=== PATIENT | male | born 1950 | race Hispanic/Latino ===

== ENCOUNTER 2017-10-31 17:27 | Inpatient (IN) | payer MEDICARE ==
[~2017-10-31] VITALS: Ht 157.5 cm; Wt 51.7 kg
[~2017-10-31 17:27] MED LIST: ARICEPT5 MG PO; ASPIRIN81 MG PO; AUGMENTIN 875-1 EACH PO; CARVEDILOL6.25 MG PO; CLOPIDOGREL75 MG PO; COREG12.5 MG PO; CRESTOR10 MG PO; DICYCLOMINE HCL10 MG PO; DICYCLOMINE HCL20 MG PO; FUROSEMIDE20 MG PO; HYDROCODON-ACE1 EA11 PO; LANTUS100 UNITS/ SQ; LEVAQUIN500 MG PO; LEVOTHYROXINE75 MCG PO; METOPROLOL TART25 MG PO; MIRALAX17 GM PO; MIRTAZAPINE15 MG PO; Megestrol Acetate PO; NEXIUM40 MG PO; NIFEDIPINE ER30 MG PO; NITROSTAT0.4 MG SL; Nifedipine PO; Nitroglycerin TOP; ONDANSETRO4 MG/UDTAB PO; ONDANSETRON HCL4 MG PO; PROTONIX40 MG/ML PO; RAMIPRIL5 MG PO; REGLAN10 MG PO; REGLAN5 MG PO; RENVELA2.4 GM PO; RENVELA800 MG PO; ROCALTROL0.25 MCG PO; SENSIPAR30 MG PO; SYNTHROID75 MCG PO; TIROSINT50 MCG PO; TRAZODONE HCL50 MG PO; VASOTEC10 MG PO; ZOFRAN ODT4 MG PO; renvela PO
[2017-10-31 18:31] LABS: BASOPHILS # (AUTO) 0.1 (0.0-0.1); BASOPHILS % 1.9 % (0.0-1.0); EOSINOPHILS # (AUTO) 0.2 (0.0-0.4); HEMATOCRIT 30.1 % (38.2-49.6); LYMPHOCYTES # (AUTO) 0.8 (1.0-3.2); LYMPHOCYTES % 25.4 % (18.0-39.1); MEAN CORPUSCULAR HEMOGLOBIN 31.6 pg (28-32); MEAN CORPUSCULAR HGB CONC 33.2 g/dL (31-35); MEAN CORPUSCULAR VOLUME 95.3 fL (81-99); MONOCYTES # (AUTO) 0.3 (0.2-0.8); MONOCYTES % 10.7 % (4.4-11.3); NEUTROPHILS # (AUTO) 1.8 (2.1-6.9); PLATELET COUNT 145 x10e3/uL (140-360); RED BLOOD COUNT 3.16 x10e6/uL (4.3-5.7); RED CELL DISTRIBUTION WIDTH 16.3 % (11.7-14.4)
[2017-10-31] MEDS ORDERED: NIFEDIPINE CR 30 MG TAB PO STA (18:31)
[2017-10-31] MEDS ORDERED: ONDANSETRON HCL INJ 2 MG/ML VIAL IV STA (18:34)
[2017-10-31 18:42] LABS: PROTHROMBIN TIME 13.7 seconds (11.9-14.5)
[2017-10-31 18:43] LABS: PARTIAL THROMBOPLASTIN TIME 33.5 seconds (23.8-35.5)
[2017-10-31] MEDS ORDERED: TRAZODONE HCL100 MG PO (18:44)
[2017-10-31] MEDS ORDERED: SENSIPAR30 MG PO (18:44)
[2017-10-31 18:53] LABS: ALBUMIN 3.9 g/dL (3.5-5.0); ALKALINE PHOSPHATASE 93 IU/L (40-150); BLOOD UREA NITROGEN 21 mg/dL (7-26); BUN/CREATININE RATIO 3 (6-25); CALCIUM 9.2 mg/dL (8.4-10.2); CARBON DIOXIDE 25 mmol/L (22-29); CHLORIDE 96 mmol/L (98-107); CREATINE KINASE 124 IU/L (30-200); CREATININE, SERUM 6.57 mg/dL (0.72-1.25); EST GLOMERULAR FILTRATION RATE 8 ML/MIN (60-); GLUCOSE 121 mg/dL (74-118); LIPASE 10 U/L (8-78); SODIUM 137 mmol/L (136-145)
[2017-10-31 18:55] LABS: ALANINE AMINOTRANSFERASE < 6 IU/L (0-55)
[2017-10-31] MEDS ORDERED: RAMIPRIL 5 MG CAP PO ONE (19:00)
--- NOTE | 2017-10-31 19:01 | Diagnostic Imaging Report ---
PROCEDURE: Frontal and lateral views of the chest. COMPARISON: Patients [facility], DX, CHEST SINGLE (PORTABLE), 07/07/2017, 9:26. Patients [facility], CT, CT ABDOMEN/PELVIS WO, 07/07/2017, 12:33. INDICATIONS: SHORTNESS OF BREATH FINDINGS: Lines/tubes: None. Lungs: Lungs are mildly hypoinflated. Linear opacity in the left midlung, likely represent subsegmental atelectasis. Bilateral interstitial opacities extending from the misty, with patchy airspace opacity in the right lower lung and left retrocardiac airspace opacity. Pleura: Blunting of the left costophrenic angle and obscuration of the left hemidiaphragm, consistent with a pleural effusion. Heart and mediastinum: Enlarged cardiac silhouette. Central pulmonary venous congestion. Bones: No acute bony abnormality. IMPRESSION: 1. findings highly suggestive of interstitial and alveolar pulmonary edema. This is likely cardiogenic in nature given the enlarged cardiac silhouette. Venkatesh Quintana M.D. Dictated by: Venkatesh Quintana M.D. on 10/31/2017 at 19:09 Electronically approved by: Venkatesh Quintana M.D. on 10/31/2017 at 19:09
--- NOTE | 2017-10-31 19:44 | Diagnostic Imaging Report ---
CT Abdomen Unenhanced CPT CODE: 17889 INDICATION: Upper abdominal pain TECHNIQUE: 5 mm collimation axial images obtained from lung base to iliac crest without intravenous contrast. RADIATION DOSE: Total DLP: 131.8 mGy*cm Estimated effective dose: (DLP x 0.015 x size factor) mSv CTDIvol has been reviewed. It is below the limits set by the Radiation Protocol Committee (RPC). Comparison: CT abdomen/pelvis 07/07/2017. FINDINGS: Lung bases: Posterior pleural effusions measure 3.9 cm on the right and 2.6 cm on the left. There is atelectasis of the overlying lung. The heart is enlarged with diffuse coronary artery calcifications. No pericardial effusion. The esophagus is collapsed. Liver: Normal attenuation. Subtle low attenuating lesion in the right lobe measures about 5 mm and is stable (image 35). There is a stable punctate calcification in segment 7. Gallbladder: Absent. No biliary ductal dilatation. Pancreas: Normal in attenuation without mass or ductal dilatation. Spleen: Normal in attenuation and size without mass. Adrenal Glands: No evidence for mass.. Kidneys: Diffusely atrophic with calcifications of the hilar vessels. No mass. No renal calculus. Bowel: The stomach is collapsed. Visualized portions of the small bowel and large bowel are normal in diameter with normal wall thickness Aorta: Normal in diameter. There are calcifications about the arterial structures. Lymph Nodes: No enlarged lymph nodes.. Bones: Diffusely increased in attenuation consistent with renal osteodystrophy. A sclerotic, nondestructive lesion in L1 is stable IMPRESSION: 1. Moderate sized bilateral pleural effusions with overlying atelectasis. Small foci of pneumonia cannot be excluded.. 2. Cholecystectomy. Normal biliary tree. 3. Cardiomegaly and bilateral renal atrophy. 4. Visualized portions of the bowel are unremarkable. 5. Renal osteodystrophy. 6. Stable low attenuating hepatic lesion, too small to characterize, but likely a cyst. Signed by: Dr. Los Sutherland MD on 10/31/2017 7:41 PM
[2017-10-31] MEDS ORDERED: NITROGLYCERIN 2% OINT 1 GM PKT TOP ONE ×2 (20:00→20:30)
[2017-10-31] MEDS ORDERED: ASPIRIN 81 MG CHEW TAB PO ONE (20:30)
[2017-10-31] MEDS ORDERED: FUROSEMIDE INJ 10 MG/ML 4 ML VIAL IV ONE (20:30)
[2017-10-31] MEDS ORDERED: ONDANSETRON HCL INJ 2 MG/ML VIAL IV PRN (20:30)
[2017-10-31] MEDS ORDERED: ENALAPRILAT IV INJ 1.25 MG/ML VIAL IV ONE (21:15)
[2017-10-31] MEDS ORDERED: PANTOPRAZOLE 40 MG 10ML VIAL IV ONE (21:30)
[2017-10-31] MEDS ORDERED: SODIUM CHLORIDE 0.9% 1000ML 1,000 ML ONE (22:21)
[2017-10-31 22:30] VITALS: BP 185/81
[2017-10-31 22:54] VITALS: BP 185/81
[2017-10-31 22:57] VITALS: BP 185/81
[2017-10-31] MEDS: NITROGLYCERIN 2% OINT 1 GM PKT TOP SCH (23:15)
[2017-10-31] MEDS ORDERED: TUMS200 MG PO (23:19)
[2017-11-01] VITALS (13 sets, daily range): BP systolic 105–186; BP diastolic 59–82
[2017-11-01] MEDS: NITROGLYCERIN 2% OINT 1 GM PKT TOP SCH ×4 (06:05→23:26)
[2017-11-01 06:44] LABS: BASOPHILS # (AUTO) 0.1 (0.0-0.1); BASOPHILS % 1.8 % (0.0-1.0); EOSINOPHILS # (AUTO) 0.1 (0.0-0.4); EOSINOPHILS % 4.8 % (0.0-6.0); HEMATOCRIT 26.2 % (38.2-49.6); HEMOGLOBIN 8.6 g/dL (14.0-18.0); LYMPHOCYTES # (AUTO) 0.6 (1.0-3.2); LYMPHOCYTES % 23.1 % (18.0-39.1); MEAN CORPUSCULAR HEMOGLOBIN 31.6 pg (28-32); MEAN CORPUSCULAR HGB CONC 32.8 g/dL (31-35); MEAN CORPUSCULAR VOLUME 96.3 fL (81-99); MONOCYTES # (AUTO) 0.3 (0.2-0.8); NEUTROPHILS # (AUTO) 1.6 (2.1-6.9); NEUTROPHILS % 58.9 % (38.7-80.0); PLATELET COUNT 121 x10e3/uL (140-360); RED BLOOD COUNT 2.72 x10e6/uL (4.3-5.7); RED CELL DISTRIBUTION WIDTH 16.1 % (11.7-14.4)
[2017-11-01 06:53] LABS: INR 1.06; PROTHROMBIN TIME 14.4 seconds (11.9-14.5)
[2017-11-01 06:54] LABS: PARTIAL THROMBOPLASTIN TIME 36.2 seconds (23.8-35.5)
[2017-11-01 07:05] LABS: ALBUMIN 3.3 g/dL (3.5-5.0); ALBUMIN/GLOBULIN RATIO 1.2 (0.8-2.0); ALKALINE PHOSPHATASE 73 IU/L (40-150); ANION GAP 14.9 mmol/L (8-16); BLOOD UREA NITROGEN 13 mg/dL (7-26); BUN/CREATININE RATIO 3 (6-25); CALCIUM 8.9 mg/dL (8.4-10.2); CARBON DIOXIDE 29 mmol/L (22-29); CHLORIDE 102 mmol/L (98-107); CHOL/HDL RATIO 4.3 (3.9-4.7); CHOLESTEROL 156 MD/DL (0-199); CREATININE, SERUM 4.63 mg/dL (0.72-1.25); EST GLOMERULAR FILTRATION RATE 13 ML/MIN (60-); GLUCOSE 69 mg/dL (74-118); HDL CHOLESTEROL 36 MG/DL (40-60); LDL CHOLESTEROL 98 MG/DL (60-130); MAGNESIUM 1.9 MG/DL (1.3-2.1); PHOSPHORUS 3.6 MG/DL (2.3-4.7); POTASSIUM 3.9 mmol/L (3.5-5.1); SODIUM 142 mmol/L (136-145); TRIGLYCERIDES 112 MG/DL (0-149)
[2017-11-01 07:08] LABS: ALANINE AMINOTRANSFERASE < 6 IU/L (0-55)
--- NOTE | 2017-11-01 08:54 | History and Physical ---
PRIMARY CARE PHYSICIAN: Dr. Destin Mohr CHIEF COMPLAINT: Elevated blood pressure. HISTORY OF PRESENT ILLNESS: This is a 67-year-old man with a history of diabetes mellitus and end-stage renal disease, on hemodialysis, who has been having dysphagia. Went to Dr. Hoang yesterday for evaluation of his dysphagia. There he was found to have a systolic blood pressure as high as 213. He was sent to the hospital here. The patient denies any chest pain. He did have some mild shortness of breath and cough. He received hemodialysis overnight for fluid overload. PAST MEDICAL HISTORY: Hypertension, coronary artery disease, status post coronary stent in 2008, diastolic congestive heart failure, diabetes mellitus, type 2, end-stage renal disease, on hemodialysis, hyperlipidemia, hypothyroidism, dementia, insomnia. PAST SURGICAL HISTORY: Fistula placement in left arm, stent placement to the coronary artery, kidney transplantation, status post removal. ALLERGIES: PER ELECTRONIC MEDICAL RECORD. FAMILY HISTORY/SOCIAL HISTORY: The patient is . He has 4 children. No alcohol, illicits or cigarettes. MEDICATIONS: Per electronic medical record. REVIEW OF SYSTEMS: Denies any dizziness or chest pain. PHYSICAL EXAMINATION VITAL SIGNS: Have been reviewed. GENERAL: A tired-appearing man resting in bed. HEENT: Anicteric. Pupils respond to light. No oral lesions. CARDIOVASCULAR: Normal S1 and S2. LUNGS: He has reduced breath sounds at the bases. Fine crackles are audible. ABDOMEN: Soft and nondistended. He has epigastric discomfort, which is mild. EXTREMITIES: No edema or calf tenderness. NEUROLOGICAL: He is alert and oriented times 3. Moves all extremities. SKIN: Dry. PSYCHIATRIC: Flat affect. MUSCULOSKELETAL: He has a left arm fistula with audible bruit. LABS: Reviewed. MEDICATIONS: Reviewed. ASSESSMENT AND PLAN: This is a 67-year-old man with: 1. Hypertensive emergency: Part of this is secondary to fluid overload. Will continue JANAK inhibitor. Will add labetalol 100 mg q.12 h. 2. Acute exacerbation of diastolic congestive heart failure: The patient received dialysis yesterday. He is also on Lasix intravenously. BNP was 2330. 3. End-stage renal disease: Hemodialysis per nephrology. Received dialysis session last night. 4. Pulmonary edema: Continue diuresis and fluid removal. I have discussed salt restriction and fluid reduction with the patient and . 5. Normocytic anemia: Mild to moderate. Likely secondary to chronic kidney disease. 6. Bilateral pleural effusion: Continue diuresis as described above. 7. Hypothyroidism: Restart Synthroid. 8. Dementia: Restart Aricept. 9. Coronary artery disease with history of stent: Continue Plavix. 10. Prophylaxis: Continue proton pump inhibitor and use sequential compression devices. 11. Disposition: Control blood pressure. Continue diuresis. Monitor fluid status. Job#: [id number] RI
[2017-11-01] MEDS ORDERED: ASPIRIN 81 MG ENTERIC COATED PO SCH (09:00)
[2017-11-01] MEDS ORDERED: PANTOPRAZOLE 40 MG 10ML VIAL IV SCH (09:00)
[2017-11-01] MEDS ORDERED: CLOPIDOGREL BISULFATE 75 MG TAB PO SCH (09:00)
[2017-11-01] MEDS ORDERED: LABETALOL HCL 100 MG TAB PO SCH (09:00)
[2017-11-01] MEDS: ASPIRIN 81 MG CHEW TAB PO SCH (09:35)
[2017-11-01] MEDS: FUROSEMIDE INJ 10 MG/ML 4 ML VIAL IV SCH ×2 (09:35→23:25)
[2017-11-01] MEDS: LISINOPRIL 20 MG TAB PO SCH (09:36)
[2017-11-01] MEDS: DONEPEZIL HCL 5 MG TAB PO SCH (09:48)
[2017-11-01] MEDS: CALCIUM CARBONATE 500 MG CHEWABLE TABS PO SCH ×2 (09:48→17:18)
[2017-11-01] MEDS: LEVOTHYROXINE SODIUM 75 MCG TAB PO SCH (09:48)
[2017-11-01 10:46] LABS: CREATINE KINASE MB 2.2 ng/mL (0.00-5.00)
--- NOTE | 2017-11-01 14:12 | Diagnostic Imaging Report ---
EXAMINATION: Chest, CHEST SINGLE (PORTABLE) INDICATION: Chest pain COMPARISON: Portable chest 11/15/2015 FINDINGS: LINES: None. Heart: Normal cardiac silhouette. Vascular: The pulmonary vasculature is within normal limits. Atherosclerotic calcifications of the aortic arch. Mediastinum: No mediastinal, hilar, or axillary mass or lymphadenopathy. Lungs: No parenchymal mass. Bilateral diffuse airspace opacifications. Pleura: No pleural effusion. No pneumothorax. Bones: No acute osseous abnormality. Degenerative changes of the thoracic spine. Soft tissues: Normal. Impression: Bilateral diffuse airspace opacifications may represent edema or pneumonia. Signed by: Dr. Matthew Rush M.D. on 11/01/2017 2:09 PM
[2017-11-01] MEDS: PROMETHAZINE 12.5MG/ NACL 0.9% 12.5 MG/50 ML BAG IV PRN (14:13)
--- NOTE | 2017-11-01 15:01 | Consultation ---
DATE OF CONSULTATION: November 01, 2017 CARDIAC CONSULTATION REASON FOR CONSULTATION: Volume overload, congestive heart failure, severe hypertension, chest pain. HISTORY: Mr. Valenzuela is a 67-year-old gentleman who is known with advanced coronary artery disease, severely calcified coronary artery. Status post PCI. He is known to have hypertension and hypercholesteremia. He is also known to have peripheral arterial vascular disease and end-stage renal disease on hemodialysis. He does have past history of OK as well as past history of CVA. Patient is on dialysis Friday//Friday. He missed one dialysis session because of the cold weather. He went to see his GI doctor. He was complaining of severe chest pain but, more importantly, severe heartburn. He was not feeling well. His blood pressure was markedly elevated at greater than 200. He was having severe shortness of breath. He was advised to come to the emergency room. In the emergency room, his blood pressure was in 200 range. His chest x-ray showed volume overload and pulmonary congestion and heart failure, and he was very ill. Cardiac consultation is obtained. We discussed the case. We recommended urgent hemodialysis. Patient had 2 hours hemodialysis today. Today his blood pressure better and he is feeling better. He is still having some GI discomfort, but his chest pain and his other symptoms are subsided. Of note, his hemoglobin was at 10.3 and his hemoglobin today at 8.6 despite the patient had dialysis and volume is removed. Cardiac-taylor, patient definitely is known with severe calcified coronary artery disease and significant peripheral arterial vascular disease. He is having definite angina. His angina worsened during dialysis. He had cardiac evaluation in my office with abnormal nuclear stress test. Plan was to proceed with cardiac catheterization and with possible intervention, patient knowing he does have significant calcified coronary arteries. This was placed on hold in view of the patient having severe heartburn and difficulty swallowing as well as diarrhea. He is advised to see GI. In fact, he went to see the GI doctor but at that time he already missed dialysis and, as described above, his problem. REVIEW OF SYSTEMS: CARDIAC: As per above. Basically class III angina, worse at dialysis time. Patient admitted with congestive heart failure secondary to missing his dialysis, as well as hypertension and coronary artery disease with diastolic dysfunction as well as systolic dysfunction. PULMONARY: Cough and shortness of breath which is improved. GI: Heartburn, indigestion, difficulty swallowing, bloating, diarrhea. No dain melena. Nausea frequently. : He does not make urine. GENERAL: Night sweats at times. No weight loss. In fact, he had some weight gain. HEENT: Remarkable for headache and lightheadedness. HEMATOLOGICAL: Easy bruising but no bleeding. MUSCULOSKELETAL: Back pain, muscle cramps, peripheral vascular claudication. SKIN: No rashes. NEUROLOGICAL: Peripheral neuropathy, severe. Poor coordination, needs a cane to walk. PSYCHIATRIC: No suicidal ideation or any other problem. HOME MEDICATIONS: Aspirin 81 mg a day. Plavix 75 mg a day. Nifedipine ER 60 mg twice a day. Ramipril 5 mg daily. Furosemide 60 mg twice a day. Levothyroxine 75 mcg a day. Insulin subcutaneously depending on sliding scale. Sensipar 30 mg a day. Renvela 2.4 gram 3 times a day. Protonix 40 mg a day. Trazodone 100 mg a day. Aricept 10 mg a day. Zofran 4 mg a day. Dicyclomine 10 mg 4 times a day. [id number] diarrhea medication. ALLERGIES: NONE. PAST MEDICAL HISTORY: 1. Advanced coronary artery disease, calcified coronary arteries. 2. PCI and stenting to the LAD in 2008 using 2.25 x 14 Roaster Supervisor stent. 3. CVA in 1998. 4. Peripheral arterial vascular disease. 5. Hypertension. 6. Hypercholesteremia. 7. Diabetes mellitus with severe end-organ damage. 8. Severe peripheral arterial vascular disease below the knee. 9. End-stage renal disease on dialysis. 10. Anxiety. 11. Recurrent staph infection. 12. Past history of hematuria. 13. Peripheral neuropathy. 14. Failed left kidney transplant in 2010. 15. AV fistula and graft surgery in the past. 16. Old myocardial infarction. 17. Cholecystectomy. SOCIAL HISTORY: He is . He stopped smoking. He is not alcohol drinker. FAMILY HISTORY: Father at age 55 with colon cancer. Mother is diabetic, old, hypertensive. Several brothers and sisters with coronary artery disease. PHYSICAL EXAMINATION: GENERAL: Well-built gentleman. VITAL SIGNS: Height of 5 feet 2 inches, weight of 120 pounds. Blood pressure 140/80. Heart rate of 70. Respiratory rate of 18. HEENT: Remarkable for decreased hearing. NECK: No elevation of jugular venous pulsation. CHEST: Clear to auscultation and percussion. HEART: PMI 5th left intercostal space. Normal 1st and 2nd heart sounds. ABDOMEN: Soft with good bowel sounds. EXTREMITIES: No cyanosis. No clubbing. No edema. AV fistula noted in his arm. Decreased feet pulses. NEUROLOGIC: Peripheral neuropathy symptoms. Nonfocal. LABORATORY DATA: Sodium of 142, potassium 3.9, BUN of 13, creatinine of 4.6. White blood cell count of 2.7. Hemoglobin today at 8.6, on admission 10.3. Cardiac enzymes normal. EKG showing normal sinus rhythm. IMPRESSION AND PLAN: 1. Volume overload secondary to missing dialysis. 2. Severe hypertension exacerbated by the patient missing dialysis. 3. Advanced coronary artery disease with angina with abnormal nuclear stress test dated October 2017. 4. Severe peripheral arterial vascular disease. 5. End-stage renal disease on dialysis. 6. Diabetes with end-organ damage including renal, peripheral, retinal, coronary and vascular. 7. Abnormal gait. 8. Hypothyroidism. 9. The patient is unable to exercise because of degenerative joint disease and peripheral vascular disease and peripheral neuropathy. 10. Severe gastrointestinal symptoms. Worry with the drop of hemoglobin despite patient had dialysis and removal of fluid with a lot of GI symptoms. Cardiac-taylor, my recommendation will be as follows: To hold his Plavix. To clear patient to have GI workup since definitely cardiac-taylor he needs cardiac catheterization with possible intervention, and subsequently he needs prolonged Plavix and aspirin. Case discussed and explained to the patient and his , to the nursing staff. Plan is discussed. Patient needs more dialysis, which will be done today. Will follow patient's progression with you and would like to thank you for your kind referral. Job#: [id number] ALISA
[2017-11-01] MEDS ORDERED: SODIUM CHLORIDE 0.9% 1000ML 2,000 ML ONE (19:52)
[2017-11-01] MEDS: MORPHINE SULFATE 5 MG/ML VIAL IV PRN (22:38)
[2017-11-01] MEDS: CINACALCET 30 MG TAB PO SCH (23:25)
[2017-11-02] VITALS (8 sets, daily range): BP systolic 117–189; BP diastolic 61–91
[2017-11-02 05:33] LABS: BASOPHILS % 1.2 % (0.0-1.0); EOSINOPHILS # (AUTO) 0.2 (0.0-0.4); EOSINOPHILS % 6.7 % (0.0-6.0); HEMOGLOBIN 8.4 g/dL (14.0-18.0); LYMPHOCYTES # (AUTO) 0.8 (1.0-3.2); LYMPHOCYTES % 23.1 % (18.0-39.1); MEAN CORPUSCULAR HEMOGLOBIN 31.2 pg (28-32); MEAN CORPUSCULAR HGB CONC 32.3 g/dL (31-35); MEAN CORPUSCULAR VOLUME 96.7 fL (81-99); MONOCYTES # (AUTO) 0.4 (0.2-0.8); MONOCYTES % 10.9 % (4.4-11.3); NEUTROPHILS # (AUTO) 1.9 (2.1-6.9); NEUTROPHILS % 57.8 % (38.7-80.0); PLATELET COUNT 103 x10e3/uL (140-360); RED BLOOD COUNT 2.69 x10e6/uL (4.3-5.7); RED CELL DISTRIBUTION WIDTH 15.8 % (11.7-14.4)
[2017-11-02] MEDS: NITROGLYCERIN 2% OINT 1 GM PKT TOP SCH ×4 (05:40→21:04)
[2017-11-02] MEDS ORDERED: PANTOPRAZOLE SOD 40 MG TABEC PO SCH (07:30)
[2017-11-02] MEDS: CALCIUM CARBONATE 500 MG CHEWABLE TABS PO SCH ×2 (09:19→16:59)
[2017-11-02] MEDS: ASPIRIN 81 MG CHEW TAB PO SCH (09:19)
[2017-11-02] MEDS: LISINOPRIL 20 MG TAB PO SCH (09:19)
[2017-11-02] MEDS: LEVOTHYROXINE SODIUM 75 MCG TAB PO SCH (09:19)
[2017-11-02] MEDS: DONEPEZIL HCL 5 MG TAB PO SCH (09:19)
[2017-11-02] MEDS: FUROSEMIDE INJ 10 MG/ML 4 ML VIAL IV SCH ×2 (09:19→21:00)
[2017-11-02] MEDS: PROMETHAZINE 12.5MG/ NACL 0.9% 12.5 MG/50 ML BAG IV PRN (13:47)
[2017-11-02] MEDS ORDERED: METOCLOPRAMIDE HCL 10 MG/2ML VIAL IV PRN (14:00)
[2017-11-02] MEDS ORDERED: METOCLOPRAMIDE HCL 10 MG/2ML VIAL IV ONE (15:00)
[2017-11-02] MEDS: PANTOPRAZOLE 40 MG 10ML VIAL IV SCH (16:59)
[2017-11-02] MEDS: METOCLOPRAMIDE HCL 10 MG TAB PO SCH ×2 (16:59→21:00)
[2017-11-02] MEDS: NIFEDIPINE CR 30 MG TAB PO SCH (17:00)
[2017-11-02 18:52] LABS: HEMATOCRIT 25.6 % (38.2-49.6); HEMOGLOBIN 8.4 g/dL (14.0-18.0)
[2017-11-02] MEDS: CINACALCET 30 MG TAB PO SCH (21:00)
[2017-11-03] VITALS (11 sets, daily range): BP systolic 121–152; BP diastolic 57–89
--- NOTE | 2017-11-03 02:06 | Progress Note ---
DATE: November 02, [address] Lesley Terry, nephrology. 2. Dr. Lucas Arora, cardiology. 3. Dr. Edilberto Hoang, gastro. CHIEF COMPLAINT: Chest pain, dysphagia, ESRD, hypertensive crisis, hypoxia, and volume fluid overload. SUBJECTIVE: Patient continues to have vomiting. MEDICATIONS: Please see MAR. OBJECTIVE VITALS: Temperature 98.1, pulse 69, blood pressure 189/91, respirations 25, and satting 100% on O2. GENERAL: Patient is awake, alert, and oriented times 3. LUNGS: Decreased breath sounds, coarse. HEENT: Extraocular muscles are intact. ABDOMEN: Bowel sounds present. It is nontender and nondistended. CARDIOVASCULAR: Regular rate and rhythm, although from patient's charts with nausea, retching, and vomiting, heart rate has dropped to 33, which Dr. Arora was at the nurses' station, I related this to him. NECK: Supple. EXTREMITIES: No calf tenderness. NEUROLOGICAL: Nonfocal. LABS: White count 3.29, hemoglobin 8.4, hematocrit 26, and platelets 103,000. DIAGNOSES 1. Hypertensive emergency. We will continue with IV medications p.r.n. Also with dialysis per nephrology. 2. Acute exacerbation of diastolic congestive heart failure. We will continue with intravenous diuresing. Continue with dialysis. Awaiting cardiology's recommendation. 3. Chest pain. Per cardiology, patient will have a cardiac catheterization in the morning. 4. End-stage renal disease, hemodialysis per nephrology. 5. Pulmonary edema, continue with diuresing and dialysis for fluid removal. 6. Bilateral pleural effusion. Continue to diurese. Monitor pleural effusion. 7. Hypothyroidism. Will continue on Synthroid. 8. History of dementia. Continue Aricept. 9. Coronary artery disease with a history of stent placement. Continue on antiplatelet medication. 10. Anemia. Hemoglobin has dropped, October 31, 2017, was 10 and November 01, 2017, was 8.6, and today it is 8.4. We will get stools for occult blood and hemoglobin in the morning. We will add Reglan 10 mg intravenous every 6 hours p.r.n. with 1 dose now. Patient is vomiting; so, Reglan intravenous is the ideal form versus p.o. Dictated by Sammy Weiss NP Job#: [id number] CF
[2017-11-03] MEDS: NITROGLYCERIN 2% OINT 1 GM PKT TOP SCH ×3 (06:00→17:43)
[2017-11-03 06:41] LABS: BASOPHILS # (AUTO) 0.1 (0.0-0.1); BASOPHILS % 1.3 % (0.0-1.0); EOSINOPHILS # (AUTO) 0.4 (0.0-0.4); EOSINOPHILS % 8.1 % (0.0-6.0); HEMATOCRIT 29.3 % (38.2-49.6); HEMOGLOBIN 9.8 g/dL (14.0-18.0); LYMPHOCYTES # (AUTO) 0.9 (1.0-3.2); LYMPHOCYTES % 19.6 % (18.0-39.1); MEAN CORPUSCULAR HEMOGLOBIN 31.5 pg (28-32); MEAN CORPUSCULAR HGB CONC 33.4 g/dL (31-35); MEAN CORPUSCULAR VOLUME 94.2 fL (81-99); MONOCYTES # (AUTO) 0.4 (0.2-0.8); MONOCYTES % 8.8 % (4.4-11.3); PLATELET COUNT 131 x10e3/uL (140-360); RED BLOOD COUNT 3.11 x10e6/uL (4.3-5.7); RED CELL DISTRIBUTION WIDTH 15.3 % (11.7-14.4)
[2017-11-03 07:05] LABS: CALCIUM 8.2 mg/dL (8.4-10.2); CREATININE, SERUM 6.04 mg/dL (0.72-1.25)
[2017-11-03] MEDS ORDERED: HEPARIN SOD (PORCINE) 1000 UNIT/ML 30ML ONE (08:25)
[2017-11-03] MEDS ORDERED: LIDOCAINE HCL 2% LOCAL 20 ML VIAL ONE (08:26)
[2017-11-03] MEDS ORDERED: FENTANYL CITRATE/PF 100MCG/2 ML INJ ONE (08:26)
[2017-11-03] MEDS ORDERED: MIDAZOLAM HCL 2 MG/2 ML VIAL ONE (08:26)
[2017-11-03] MEDS ORDERED: NITROGLYCERIN/D5W 200 MCG/ML 250 ML ONE (08:26)
[2017-11-03] MEDS ORDERED: IOPAMIDOL 370 MG/ML 200 ML INFUS..BTL INJ ONE (08:26)
[2017-11-03] MEDS ORDERED: SODIUM CHLORIDE 0.9% 1000ML 1,000 ML ONE (08:26)
[2017-11-03] MEDS ORDERED: HEPARIN SOD/SOD CHLORIDE 2,000 ML ONE (08:26)
[2017-11-03] MEDS: METOCLOPRAMIDE HCL 10 MG TAB PO SCH ×4 (08:36→22:02)
[2017-11-03] MEDS: ASPIRIN 81 MG CHEW TAB PO SCH (08:37)
[2017-11-03] MEDS: LEVOTHYROXINE SODIUM 75 MCG TAB PO SCH (08:37)
[2017-11-03] MEDS: DONEPEZIL HCL 5 MG TAB PO SCH (08:37)
[2017-11-03] MEDS: PANTOPRAZOLE 40 MG 10ML VIAL IV SCH ×2 (08:37→17:43)
[2017-11-03] MEDS: LISINOPRIL 20 MG TAB PO SCH (08:37)
[2017-11-03] MEDS: FUROSEMIDE INJ 10 MG/ML 4 ML VIAL IV SCH ×2 (08:37→22:02)
[2017-11-03] MEDS: RAMIPRIL 5 MG CAP PO SCH (08:37)
[2017-11-03] MEDS: NIFEDIPINE CR 30 MG TAB PO SCH ×2 (08:37→17:43)
[2017-11-03] MEDS: CALCIUM CARBONATE 500 MG CHEWABLE TABS PO SCH ×2 (08:38→17:43)
[2017-11-03 12:05] LABS: ABG PCO2 41 mmHg (41-51); ABG PH 7.41 (7.31-7.41)
[2017-11-03 12:06] LABS: ABG HCO3 26 mmol/L (23-28); ABG PO2 42 mmHg (80-105)
--- NOTE | 2017-11-03 12:14 | Operative Report ---
DATE OF PROCEDURE: November 03, 2017 PROCEDURE: Left cardiac catheterization. INDICATIONS: Angina, positive stress test, end-stage renal disease on hemodialysis, sick sinus syndrome, diabetes mellitus and several other complex medical health problems. TECHNICAL DETAILS: After the usual sterile preparation and draping procedure, it was noted the patient's oxygen saturations were low. ABGs on room air were taken. The patient had 1 mg of Versed and 25 of fentanyl. A 4-Armenian sheath was established in place. Alexandre left 4 and 3DRC catheters used to engage the coronary. The ABGs showed pH of 7.41, pCO2 was 40, pO2 of 42, oxygen saturation was 78%. We elected to proceed with the procedure, which was done. Patient was given 2-L supply of oxygen, and his saturation remained in the 80s. At the end of the procedure, sheath was removed. Hemostasis achieved manually. No immediate complication and no blood loss. RESULTS A. Coronary angiogram. 1. Left main: Free of disease. 2. LAD: Diffusely calcified artery. Several plaques were noted. There is 70% ostial diagonal lesion in the first diagonal. 100% occlusion of the second diagonal: There is a patent LAD stent. 3. Circumflex coronary artery: 70% ostial lesion, very small. 4. Right coronary artery: Large artery with stent in the mid part with 30% restenosis. There are several plaques at 40% to 50%. B. Hemodynamics: Aorta pressure 140/80. LV pressure 140/28. C. Left ventriculogram in the right anterior oblique view showed normal size ventricle with an ejection fraction of 70%. IMPRESSION 1. Two-vessel coronary artery disease. 2. Severe calcified coronary arteries. 3. Totally occluded 2nd diagonal and severely diseased 1st diagonal. 4. Small circumflex coronary artery. 5. Several plaques of the right coronary artery. 6. Left ventricular ejection fraction of 70%. Patient is hypoxemic with low pO2. Will discuss with renal for possibility of dialysis today. COMPLICATIONS: None. BLOOD LOSS: None. Job#: [id number] RUBIN
--- NOTE | 2017-11-03 13:22 | Progress Note ---
DATE: November 03, 2017 NEPHROLOGY PROGRESS NOTE SUBJECTIVE: Got his heart cath. Feels somewhat poorly. Minimal facial puffiness. Found to be hypoxic earlier. PH was 7.4, pO2 was only 42. OBJECTIVE VITAL SIGNS: Temperature 99.3, pulse 104, blood pressure is 149/63. CHEST: Slightly diminished breath sounds at the bases. CARDIAC: Faint S4. ABDOMEN: Benign. EXTREMITIES: Trace edema. SKIN: Facial puffiness. LABS: As above. K is 4.0. Hemoglobin is 9.8. ASSESSMENT 1. End-stage renal disease. 2. Fluid overload. 3. History of diabetic nephropathy. 4. Hypertension. PLAN 1. Extra dialysis today, 2-hour run, 2 to 3 liters fluid removal. 2. Potassium bath. Will get back to regular dialysis tomorrow. We will follow along. Job#: [id number] VAS
[2017-11-03] MEDS: CINACALCET 30 MG TAB PO SCH (22:02)
--- NOTE | 2017-11-03 22:49 | Consultation ---
DATE OF CONSULTATION: November 03, 2017 REASON FOR CONSULTATION: Complete heart block. HISTORY OF PRESENT ILLNESS: This is a 67-year-old gentleman with history of hypertension, end-stage renal disease on hemodialysis, paroxysmal atrial fibrillation, who has had significant coronary artery disease. He was admitted and undergone heart catheterization. Had episode of atrial fibrillation with rapid ventricular response. Also, he had episodes of complete heart block with 2 or 3 seconds without ventricular escape rhythm, he felt dizzy associated with this. He states he has these episodes of dizziness about once per week, no true syncope. We were consulted to consider pacemaker. REVIEW OF SYSTEMS CONSTITUTIONAL: Negative. CARDIOVASCULAR: Negative. RESPIRATORY: Negative. GASTROINTESTINAL: Negative. GENITOURINARY: Negative. MUSCULOSKELETAL: Negative. EYES: Negative. ENT: Negative. ALLERGY/IMMUNOLOGY: Negative. PSYCHIATRY: Negative. PAST MEDICAL HISTORY: Hypertension, end-stage renal disease on hemodialysis. SURGICAL HISTORY: Left arm fistula. SOCIAL HISTORY: No smoking, alcohol or illicit drugs. FAMILY HISTORY: No premature coronary artery disease. PHYSICAL EXAMINATION VITAL SIGNS: Blood pressure 150/60, pulse 70, respirations 18, O2 sat is 98%. GENERAL: In no acute distress. HEENT: Moist mucous membranes. CARDIOVASCULAR: Regular rhythm. RESPIRATORY: Clear to auscultation. GASTROINTESTINAL: Abdomen is soft, nontender. MUSCULOSKELETAL: 2+ distal pulses. Presence of AV fistula on the left arm. SKIN: No lesions. NEUROLOGICAL: No focal deficit. EKG: Sinus rhythm. Episodes on telemetry demonstrating complete heart block with no escape rhythm for 2 to 4 seconds. IMPRESSION 1. Transient paroxysmal complete heart block. Symptomatic with dizziness. No reversible causes. 2. Paroxysmal atrial fibrillation with rapid ventricular response. 3. End-stage renal disease on hemodialysis. PLAN: Had a discussion with the patient about indications for a pacemaker. The procedure was explained in detail with benefits and risks. Patient voiced his understanding and wishes to proceed. Will plan for a dual-chamber insulation packer on the right side as he has a fistula on the left arm. Thank you for letting us participate in Mr. Valenzuela's healthcare. Job#: [id number]
[2017-11-04] VITALS (7 sets, daily range): BP systolic 101–179; BP diastolic 61–79
[2017-11-04] MEDS: NITROGLYCERIN 2% OINT 1 GM PKT TOP SCH ×4 (01:05→18:20)
[2017-11-04 07:18] LABS: BASOPHILS # (AUTO) 0.1 (0.0-0.1); BASOPHILS % 1.6 % (0.0-1.0); EOSINOPHILS # (AUTO) 0.4 (0.0-0.4); EOSINOPHILS % 8.1 % (0.0-6.0); HEMATOCRIT 27.8 % (38.2-49.6); HEMOGLOBIN 9.3 g/dL (14.0-18.0); LYMPHOCYTES # (AUTO) 0.8 (1.0-3.2); LYMPHOCYTES % 19.3 % (18.0-39.1); MEAN CORPUSCULAR HEMOGLOBIN 31.6 pg (28-32); MEAN CORPUSCULAR HGB CONC 33.5 g/dL (31-35); MEAN CORPUSCULAR VOLUME 94.6 fL (81-99); MONOCYTES # (AUTO) 0.4 (0.2-0.8); MONOCYTES % 8.8 % (4.4-11.3); NEUTROPHILS # (AUTO) 2.7 (2.1-6.9); PLATELET COUNT 109 x10e3/uL (140-360); RED BLOOD COUNT 2.94 x10e6/uL (4.3-5.7); RED CELL DISTRIBUTION WIDTH 14.8 % (11.7-14.4)
[2017-11-04] MEDS: METOCLOPRAMIDE HCL 10 MG TAB PO SCH ×4 (07:30→22:00)
[2017-11-04 07:32] LABS: ANION GAP 14.8 mmol/L (8-16); CALCIUM 7.6 mg/dL (8.4-10.2); CREATININE, SERUM 5.42 mg/dL (0.72-1.25); POTASSIUM 3.8 mmol/L (3.5-5.1)
[2017-11-04] MEDS ORDERED: SODIUM CHLORIDE 0.9% 1000ML 2,000 ML ONE (08:58)
[2017-11-04] MEDS: FUROSEMIDE INJ 10 MG/ML 4 ML VIAL IV SCH ×2 (09:00→22:00)
[2017-11-04] MEDS: ASPIRIN 81 MG CHEW TAB PO SCH (09:00)
[2017-11-04] MEDS: LISINOPRIL 20 MG TAB PO SCH (09:00)
[2017-11-04] MEDS: DONEPEZIL HCL 5 MG TAB PO SCH (09:00)
[2017-11-04] MEDS: RAMIPRIL 5 MG CAP PO SCH (09:00)
[2017-11-04] MEDS: PANTOPRAZOLE 40 MG 10ML VIAL IV SCH ×2 (09:00→16:29)
[2017-11-04] MEDS: CALCIUM CARBONATE 500 MG CHEWABLE TABS PO SCH ×2 (09:00→16:34)
[2017-11-04] MEDS: NIFEDIPINE CR 30 MG TAB PO SCH ×2 (09:00→16:31)
[2017-11-04] MEDS: LEVOTHYROXINE SODIUM 75 MCG TAB PO SCH (09:00)
[2017-11-04] MEDS ORDERED: DEXTROSE 50% SYRINGE 50 ML IV PRN (14:00)
[2017-11-04] MEDS ORDERED: DEXTROSE 5%/0.9% SOD CHL 1,000 ML IV ONE (14:45)
[2017-11-04] MEDS ORDERED: LIDOCAINE HCL 2% LOCAL 20 ML VIAL ONE (16:12)
[2017-11-04] MEDS ORDERED: BACITRACIN 50,000 UNIT VIAL ONE (16:12)
[2017-11-04] MEDS ORDERED: FENTANYL CITRATE/PF 100MCG/2 ML INJ ONE (16:13)
[2017-11-04] MEDS ORDERED: SODIUM CHLORIDE 0.9% 1000ML 1,000 ML ONE ×2 (16:13→16:23)
[2017-11-04] MEDS ORDERED: SODIUM CHLORIDE 0.9% 500ML 500 ML ONE (16:13)
[2017-11-04] MEDS ORDERED: MIDAZOLAM HCL 2 MG/2 ML VIAL ONE (16:14)
[2017-11-04] MEDS ORDERED: IOPAMIDOL 300MG/ML 50ML INFUS..BTL IV ONE (16:21)
[2017-11-04] MEDS ORDERED: VANCOMYCIN 1GM/NS 250 ML 250 ML ONE (16:40)
[2017-11-04] MEDS ORDERED: EPOETIN ALFA 10000 UNIT/ML VIAL SC ONE (16:50)
--- NOTE | 2017-11-04 17:02 | Progress Note ---
DATE: November 04, 2017 NEPHROLOGY PROGRESS NOTE SUBJECTIVE: Had dialysis earlier, feeling better. Face is less puffy. OBJECTIVE VITAL SIGNS: Temperature 99, pulse 73, blood pressure 135/61. GENERAL: Access with chronic enlargement, mild pulsations. CHEST: Clear. EXTREMITIES: No edema. NEURO: Alert, appropriate. Potassium is 3.8, creatinine 5.4, BUN 28. Hemoglobin is 9.3. ASSESSMENT 1. End-stage renal disease. 2. Anemia of chronic kidney disease, possibly multifactorial, pending possible gastrointestinal evaluation. 3. Hypertension. 4. Underlying diabetic nephropathy. PLAN: From a renal standpoint, dialysis has been done today. Please see orders for details. We pulled off about 3 liters of fluid given the recent fluid overload. Keep fluid restricted. Will follow along. Sincerely, Job#: [id number] EV
[2017-11-04] MEDS: CINACALCET 30 MG TAB PO SCH (22:00)
[2017-11-05] VITALS (7 sets, daily range): BP systolic 132–183; BP diastolic 65–83
[2017-11-05] MEDS: NITROGLYCERIN 2% OINT 1 GM PKT TOP SCH ×4 (01:00→17:22)
--- NOTE | 2017-11-05 01:04 | Operative Report ---
DATE OF PROCEDURE: November 04, 2017 REFERRING PHYSICIAN: Dr. Arora PREPROCEDURE DIAGNOSES 1. Intermittent complete heart block, symptomatic bradycardia with dizziness, near-syncope. 2. End-stage renal disease, on hemodialysis through left arm. POSTPROCEDURE DIAGNOSES 1. Intermittent complete heart block, symptomatic bradycardia with dizziness, near-syncope. 2. End-stage renal disease, on hemodialysis through left arm. PROCEDURE PERFORMED: Dual-chamber pacemaker implant right axillary vein. MODERATE SEDATION: Monitored conscious sedation was provided under my direct supervision by a sedation-trained nurse, sedation approximate time 30 minutes, Versed and fentanyl. There were no complications. See sedation form for details. ESTIMATED BLOOD LOSS: 5 mL. COMPLICATIONS: None. DESCRIPTION OF PROCEDURE: After informed consent was obtained, patient was brought to the electrophysiology laboratory in a fasting, nonsedated state. Area over his chest was prepped and draped in the usual sterile fashion. Moderate sedation and prophylactic antibiotic were given. Lidocaine 1% was used as local anesthetic, and a 3-cm skin incision was made in the right supraclavicular area. Electrocautery, sharp, and blunt dissection were used to reach the muscular fascia, and a pocket was created for eventual implantation of the device. Vascular access was obtained times 2 in the right axillary vein using the modified Seldinger technique under fluoroscopic guidance. Two 6-Upper Sorbian sheaths were placed. The ventricular lead advanced to the RV apex. R-wave 15, pacing 0.4 at 0.5, impedance 806. The atrial lead to the right atrial appendage, P-wave 5.5, pacing 0.7 at 0.5, impedance 655. The sheaths were removed from the body. The leads were secured to fascia using 0-silk. Pocket was irrigated with antibiotic solution using the pulse manager pacu. Hemostasis was meticulous. Leads were connected to the device and the entire pacemaker system placed in the pocket. The incision was closed using Vicryl and Dermabond. Patient tolerated the procedure well. Procedure deemed complete. SUMMARY OF HARDWARE IMPLANTED 1. The new pacemaker is [employer], model #L311, [id number]. 2. The atrial lead is [employer], 7768, [id number]. 3. The ventricular lead is [employer], 7741, [id number]. IMPRESSION: Successful dual-chamber pacemaker implant via right axillary vein. PLAN 1. Routine postop monitoring in telemetry bed. 2. Chest x-ray. 3. Followup in 2 weeks. Job#: [id number] CQ
[2017-11-05] MEDS: METOCLOPRAMIDE HCL 10 MG TAB PO SCH ×4 (06:31→21:26)
[2017-11-05] MEDS: LEVOTHYROXINE SODIUM 75 MCG TAB PO SCH (06:32)
[2017-11-05] MEDS: FUROSEMIDE INJ 10 MG/ML 4 ML VIAL IV SCH ×2 (08:22→21:26)
[2017-11-05] MEDS: PANTOPRAZOLE 40 MG 10ML VIAL IV SCH ×2 (08:22→17:12)
[2017-11-05] MEDS: NIFEDIPINE CR 30 MG TAB PO SCH ×2 (08:23→17:22)
[2017-11-05] MEDS: ASPIRIN 81 MG CHEW TAB PO SCH (08:23)
[2017-11-05] MEDS: LISINOPRIL 20 MG TAB PO SCH ×2 (08:23→09:00)
[2017-11-05] MEDS: RAMIPRIL 5 MG CAP PO SCH (08:23)
[2017-11-05] MEDS: DONEPEZIL HCL 5 MG TAB PO SCH (08:23)
[2017-11-05] MEDS: CALCIUM CARBONATE 500 MG CHEWABLE TABS PO SCH ×2 (08:23→17:12)
--- NOTE | 2017-11-05 09:00 | Diagnostic Imaging Report ---
PROCEDURE: CHEST SINGLE (PORTABLE) COMPARISON: 11/01/2017. INDICATIONS: PACEMAKER PLACEMENT FINDINGS: The lungs remain well-inflated. Interval placement of a right subclavian approach implantable cardiac device, with leads projecting over the expected region of the right atrium and right ventricle. No pneumothorax. No air space consolidation. Trace bilateral pleural effusions are suspected, unchanged compared to 11/01/2017 accounting for differences in technique. Stable cardiomediastinal contour with tortuosity and atherosclerotic calcification of the thoracic aorta. Left subclavian/brachiocephalic venous stent is unchanged in position. No pulmonary edema. No acute osseous abnormality. CONCLUSION: Interval placement of a right subclavian implantable cardiac device, positioned as described. No pneumothorax. Dictated by: Lj Plata M.D. on 11/05/2017 at 9:09 Electronically approved by: Lj Plata M.D. on 11/05/2017 at 9:09
[2017-11-05 09:33] LABS: BASOPHILS # (AUTO) 0.1 (0.0-0.1); BASOPHILS % 1.6 % (0.0-1.0); EOSINOPHILS # (AUTO) 0.3 (0.0-0.4); EOSINOPHILS % 4.9 % (0.0-6.0); HEMATOCRIT 32.7 % (38.2-49.6); HEMOGLOBIN 10.7 g/dL (14.0-18.0); LYMPHOCYTES # (AUTO) 0.8 (1.0-3.2); LYMPHOCYTES % 14.4 % (18.0-39.1); MEAN CORPUSCULAR HEMOGLOBIN 31.8 pg (28-32); MEAN CORPUSCULAR HGB CONC 32.7 g/dL (31-35); MONOCYTES # (AUTO) 0.6 (0.2-0.8); MONOCYTES % 10.1 % (4.4-11.3); NEUTROPHILS % 68.8 % (38.7-80.0); PLATELET COUNT 120 x10e3/uL (140-360); RED BLOOD COUNT 3.37 x10e6/uL (4.3-5.7); RED CELL DISTRIBUTION WIDTH 15.1 % (11.7-14.4)
[2017-11-05 09:50] LABS: ANION GAP 16.4 mmol/L (8-16); CALCIUM 8.3 mg/dL (8.4-10.2); CREATININE, SERUM 4.45 mg/dL (0.72-1.25); PHOSPHORUS 3.4 MG/DL (2.3-4.7); POTASSIUM 4.4 mmol/L (3.5-5.1)
[2017-11-05] MEDS: HYDRALAZINE HCL 20 MG/ML VIAL IV PRN ×2 (11:28→19:23)
[2017-11-05] MEDS: MORPHINE SULFATE 5 MG/ML VIAL IV PRN ×2 (14:33→20:06)
--- NOTE | 2017-11-05 17:55 | Operative Report ---
DATE OF PROCEDURE: November 05, 2017 REFERRING PHYSICIAN: Dr. Alonzo Yu. PROCEDURE PERFORMED: Esophagogastroduodenoscopy with esophageal dilatation. INDICATIONS FOR ESOPHAGOGASTRODUODENOSCOPY: Dysphagia, nausea and vomiting. MEDICATION: Patient was done under MAC. Please see anesthesiologist's note. PROCEDURE: With the patient in the left lateral decubitus position, the flexible fiberoptic Olympus gastroscope was introduced into the esophagus under direct visualization without any difficulty. There was some patchy erythema noted in the distal esophagus. A mild stricture was noted at the GE junction, and that was dilated to a size 52-Luxembourgish Timmons. The scope was then advanced with ease into the stomach, and mucosa overlying the antrum and the body revealed some patchy erythema and mild to moderate edema, and biopsies were obtained and sent to stain for H. pylori. The pylorus was of normal contour and shape, was intubated with ease, and the scope was advanced all the way to the 2nd portion of the duodenum. The scope was then withdrawn slowly. Mucosa overlying the proximal 2nd portion and the duodenal bulb appeared to be within normal limits. The scope was then withdrawn back into the stomach and retroflexed, and the mucosa overlying the fundus and the cardia appeared to be within normal limits. The scope was then straightened out. The stomach was decompressed. The scope was subsequently withdrawn. Patient tolerated the procedure well. IMPRESSION: 1. Distal esophagitis. 2. Esophageal stricture, mild, at gastroesophageal junction dilated to a size 52-Luxembourgish Timmons. 3. Gastritis biopsied. Biopsies sent to stain for H. pylori. PLAN: Follow up histology. Continue Protonix 40 mg 1 p.o. q.a.m. a.c. Job#: [id number] EV cc:ALONZO YU MD
[2017-11-05] MEDS ORDERED: FENTANYL CITRATE/PF 100MCG/2 ML INJ ONE (20:08)
[2017-11-05] MEDS ORDERED: LIDOCAINE HCL 2% LOCAL INJ 5 ML SDV VIAL INJ ONE (20:28)
[2017-11-05] MEDS ORDERED: PROPOFOL IV EMULSION 10 MG/ML 50 ML VIAL ONE (20:28)
[2017-11-05] MEDS: CINACALCET 30 MG TAB PO SCH (21:26)
[2017-11-06] VITALS (7 sets, daily range): BP systolic 101–143; BP diastolic 46–71
[2017-11-06] MEDS: NITROGLYCERIN 2% OINT 1 GM PKT TOP SCH ×4 (00:25→18:52)
[2017-11-06] MEDS: MORPHINE SULFATE 5 MG/ML VIAL IV PRN ×2 (00:25→14:02)
[2017-11-06] MEDS: LEVOTHYROXINE SODIUM 75 MCG TAB PO SCH (06:02)
[2017-11-06 06:20] LABS: BASOPHILS # (AUTO) 0.1 (0.0-0.1); BASOPHILS % 1.6 % (0.0-1.0); EOSINOPHILS # (AUTO) 0.2 (0.0-0.4); EOSINOPHILS % 3.8 % (0.0-6.0); HEMATOCRIT 30.3 % (38.2-49.6); HEMOGLOBIN 9.8 g/dL (14.0-18.0); MEAN CORPUSCULAR HEMOGLOBIN 31.5 pg (28-32); MEAN CORPUSCULAR HGB CONC 32.3 g/dL (31-35); MEAN CORPUSCULAR VOLUME 97.4 fL (81-99); MONOCYTES # (AUTO) 0.6 (0.2-0.8); MONOCYTES % 10.3 % (4.4-11.3); NEUTROPHILS # (AUTO) 3.6 (2.1-6.9); NEUTROPHILS % 66.1 % (38.7-80.0); PLATELET COUNT 121 x10e3/uL (140-360); RED BLOOD COUNT 3.11 x10e6/uL (4.3-5.7)
--- NOTE | 2017-11-06 06:25 | Diagnostic Imaging Report ---
CHEST SINGLE (PORTABLE), 11/06/2017 5:00 AM Technique: CHEST SINGLE (PORTABLE) Comparison: 11/01/2017 Clinical history: Follow-up pneumonia Findings: See Impression Impression: 1. Lines/Tubes: Placement of right chest wall dual-lead pacer, right atrial and ventricular leads. Stent projects over the subclavian/brachiocephalic stent. 2. Normal cardiomediastinal silhouette for technique. 3. Mild bilateral opacities, favor edema with bibasilar atelectasis and layering effusions. Signed by: Dr Bety Meza MD on 11/06/2017 6:21 AM
[2017-11-06 06:38] LABS: ANION GAP 18.2 mmol/L (8-16); CALCIUM 7.9 mg/dL (8.4-10.2); CREATININE, SERUM 6.46 mg/dL (0.72-1.25); POTASSIUM 4.2 mmol/L (3.5-5.1)
[2017-11-06] MEDS: PANTOPRAZOLE 40 MG 10ML VIAL IV SCH ×2 (08:30→16:40)
[2017-11-06] MEDS: CALCIUM CARBONATE 500 MG CHEWABLE TABS PO SCH ×2 (08:30→16:40)
[2017-11-06] MEDS: DONEPEZIL HCL 5 MG TAB PO SCH (08:30)
[2017-11-06] MEDS: ASPIRIN 81 MG CHEW TAB PO SCH (08:30)
[2017-11-06] MEDS: METOCLOPRAMIDE HCL 10 MG TAB PO SCH ×4 (08:30→22:04)
[2017-11-06] MEDS: LISINOPRIL 20 MG TAB PO SCH (09:00)
[2017-11-06] MEDS: FUROSEMIDE INJ 10 MG/ML 4 ML VIAL IV SCH ×2 (09:00→22:04)
[2017-11-06] MEDS: NIFEDIPINE CR 30 MG TAB PO SCH ×2 (09:00→16:40)
[2017-11-06] MEDS ORDERED: LISINOPRIL20 MG PO (09:47)
[2017-11-06] MEDS ORDERED: MINOCYCLINE HCL50 MG PO (09:47)
[2017-11-06] MEDS ORDERED: SODIUM CHLORIDE 0.9% 1000ML 1,000 ML ONE (10:48)
[2017-11-06] MEDS ORDERED: METOPROLOL TARTRATE INJ 1 MG/ML VIAL IV PRN (11:15)
[2017-11-06] MEDS: AMIODARONE HCL 200 MG TAB PO SCH ×3 (11:15→22:04)
[2017-11-06] MEDS: METOPROLOL TARTRATE 25 MG TAB PO SCH ×2 (11:20→16:40)
[2017-11-06] MEDS ORDERED: METOPROLOL TARTRATE 25 MG TAB PO SCH (14:00)
[2017-11-06] MEDS: PROMETHAZINE 12.5MG/ NACL 0.9% 12.5 MG/50 ML BAG IV PRN (14:01)
[2017-11-06] MEDS: CINACALCET 30 MG TAB PO SCH (22:04)
--- NOTE | 2017-11-06 23:20 | Progress Note ---
DATE: November 06, 2017 COVERING FOR: Dr. Edilberto Hoang. SUBJECTIVE: Mr. Valenzuela, a gentleman of 67 years old, who has multiple comorbidities. He has diabetes, hypertension, chronic kidney disease, anemia due to his kidney disease, dysphagia. Underwent yesterday upper endoscopy by Dr. Hoang and currently waiting for speech therapy evaluation for his swallowing mechanism. Overall, stable from GI standpoint. He is on dialysis, underwent dialysis today. His white cell count is 5.5, hematocrit 30, hemoglobin 9.8, platelet 121,000. Sodium normal, potassium normal. OBJECTIVE VITALS: Temperature 97.6, pulse 64, respiratory rate 17, blood pressure 128/71. PLAN: Nothing to add from GI standpoint. Will continue to monitor and waiting for speech therapy evaluation. Job#: [id number]
[2017-11-07 00:30] VITALS: BP 117/53
[2017-11-07 00:37] VITALS: BP 117/53
[2017-11-07] MEDS: NITROGLYCERIN 2% OINT 1 GM PKT TOP SCH ×2 (01:58→06:03)
[2017-11-07 05:03] VITALS: BP 125/57
[2017-11-07] MEDS: LEVOTHYROXINE SODIUM 75 MCG TAB PO SCH (06:03)
[2017-11-07 07:15] VITALS: BP 125/56
[2017-11-07] MEDS ORDERED: LOPRESSOR25 MG PO (08:15)
[2017-11-07] MEDS ORDERED: AMIODARONE HCL200 MG PO ×3 (08:15→12:19)
[2017-11-07] MEDS: PANTOPRAZOLE 40 MG 10ML VIAL IV SCH (08:55)
[2017-11-07] MEDS: METOPROLOL TARTRATE 25 MG TAB PO SCH (08:55)
[2017-11-07] MEDS: CALCIUM CARBONATE 500 MG CHEWABLE TABS PO SCH (08:55)
[2017-11-07] MEDS: FUROSEMIDE INJ 10 MG/ML 4 ML VIAL IV SCH (08:55)
[2017-11-07] MEDS: ASPIRIN 81 MG CHEW TAB PO SCH (08:55)
[2017-11-07] MEDS: DONEPEZIL HCL 5 MG TAB PO SCH (08:55)
[2017-11-07] MEDS: METOCLOPRAMIDE HCL 10 MG TAB PO SCH (08:55)
[2017-11-07] MEDS: AMIODARONE HCL 200 MG TAB PO SCH (08:55)
[2017-11-07 12:00] VITALS: BP 147/64
[2017-11-07] MEDS ORDERED: LABETALOL HCL100 MG PO (12:19)
--- NOTE | 2017-11-07 19:47 | Discharge Summary ---
ADMISSION DIAGNOSES 1. Hypertensive emergency. 2. Acute exacerbation of diastolic heart failure. 3. End-stage renal disease. 4. Pulmonary edema. 5. Normocytic anemia. 6. Bilateral pleural effusions. 7. Hypothyroidism. 8. Dementia. 9. Coronary artery disease with history of stent. DISCHARGE DIAGNOSES 1. Hypertensive emergency. 2. Acute exacerbation of diastolic heart failure. 3. End-stage renal disease. 4. Pulmonary edema. 5. Normocytic anemia. 6. Bilateral pleural effusions. 7. Hypothyroidism. 8. Dementia. 9. Coronary artery disease with history of stent. 10. Atrial fibrillation with rapid ventricular response. 11. Intermittent complete heart block. 12. Symptomatic bradycardia with dizziness and near syncope. 13. Severe peripheral arterial disease. HISTORY: The patient has a history of hypertension, CAD, status post coronary stents in 2008, diastolic congestive heart failure, diabetes type 2, end-stage renal disease on hemodialysis, hyperlipidemia, hypothyroidism, dementia and insomnia. PAST SURGICAL HISTORY: Fistula placement in left arm. Stent to coronary artery. Kidney transplantation, status post removal. HOSPITAL COURSE: A 67-year-old male who presented for evaluation of dysphagia. There he was found to have a systolic blood pressure as high as 213. He was sent to the hospital. He then complained of mild shortness of breath and cough. He received hemodialysis for fluid overload. The patient started on JANAK inhibitor and Lasix IV. On admission, BNP was 2330. Salt restriction and fluid reduction discussed with the patient and . Home medicines restarted for hypothyroidism, dementia and CAD. Per cardiac, recommended to hold Plavix and clear the patient for GI workup. The patient needed cardiac cath. Per cardiac cath, the patient had 2-vessel coronary artery disease, severe calcified coronary arteries, totally occluded 2 diagonal and severely diseased 1st diagonal, small circumflex coronary artery, several plaques of the right coronary artery and an EF of 70%. Dr. Soriano, EP, was consulted for pacemaker. Pacemaker was placed on November 04, 2017. He will follow up in [address] Soriano as a successful dual-chamber pacemaker implanted via right axillary veins. So, once cardiac cleared him, the patient was then sent for an EGD and esophageal dilation because he complained of having to swallow many times before finally being able to get food down. The plan was to send the patient home after the dilation if he could tolerate food. The patient was able to tolerate food without coughing, but prior to discharge his blood pressure was again in the 180s, so discharge held on first night for those reasons. Medications were changed. Blood pressure came back the next day, down to a normal blood pressure. Prior to discharge, the patient was found to be in atrial fibrillation, rapid ventricular response. Cardiology then changed his meds again, added amiodarone and metoprolol, then the patient converted back to sinus rhythm and was monitored overnight once more. Throughout the night, the patient remained sinus rhythm per [employer]. Per GI, the patient was sent home on Protonix. Per cardiology, the patient was sent home on amiodarone and labetalol. The patient is to follow up with Dr. Soriano in [address] Hoang in 2 weeks as well. Blood pressure medicine lisinopril was increased to 30 mg as he was only taking 10 mg at [address] Per Dr. Soriano, the patient was sent home on minocycline 100 q.12 h. for 10 tablet. Dictated by: Yocasta Prakash NP ALONZO PIÑA MD Job#: [id number] GH
== END 2017-11-07 14:27 | disposition home health service (06) | DRG 242 ==
LOC: ER 17:27 → ERHOLD 21:07 → IMCU 22:16
PROVIDERS: ADMIT Internal Medicine; ATTEND Internal Medicine
PROC: 5A1D70Z Performance of Urinary Filtration, Intermittent, Less than 6 Hours Per Day (ICD-10-PCS; principal; 2017-10-31)
PROC: 4A023N7 Measurement of Cardiac Sampling and Pressure, Left Heart, Percutaneous Approach (ICD-10-PCS; 2017-11-03)
PROC: B2111ZZ Fluoroscopy of Multiple Coronary Arteries using Low Osmolar Contrast (ICD-10-PCS; 2017-11-03)
PROC: B2151ZZ Fluoroscopy of Left Heart using Low Osmolar Contrast (ICD-10-PCS; 2017-11-03)
PROC: 0JH606Z Insertion of Pacemaker, Dual Chamber into Chest Subcutaneous Tissue and Fascia, Open Approach (ICD-10-PCS; 2017-11-04)
PROC: 02HK3JZ Insertion of Pacemaker Lead into Right Ventricle, Percutaneous Approach (ICD-10-PCS; 2017-11-04)
PROC: 02H63JZ Insertion of Pacemaker Lead into Right Atrium, Percutaneous Approach (ICD-10-PCS; 2017-11-04)
PROC: 0D748ZZ Dilation of Esophagogastric Junction, Via Natural or Artificial Opening Endoscopic (ICD-10-PCS; 2017-11-05)
PROC: 0DB68ZX Excision of Stomach, Via Natural or Artificial Opening Endoscopic, Diagnostic (ICD-10-PCS; 2017-11-05)
DX: I13.2 Hypertensive heart and chronic kidney disease with heart failure and with stage 5 chronic kidney disease, or end stage renal disease (principal); N18.6 End stage renal disease; N17.9 Acute kidney failure, unspecified; I44.2 Atrioventricular block, complete; J81.1 Chronic pulmonary edema; I25.82 Chronic total occlusion of coronary artery; E11.21 Type 2 diabetes mellitus with diabetic nephropathy; E83.51 Hypocalcemia; I50.33 Acute on chronic diastolic (congestive) heart failure; Z94.0 Kidney transplant status; I16.1 Hypertensive emergency; Z99.2 Dependence on renal dialysis; Z95.5 Presence of coronary angioplasty implant and graft; E11.22 Type 2 diabetes mellitus with diabetic chronic kidney disease; F03.90 Unspecified dementia, unspecified severity, without behavioral disturbance, psychotic disturbance, mood disturbance, and anxiety; E03.9 Hypothyroidism, unspecified; E11.51 Type 2 diabetes mellitus with diabetic peripheral angiopathy without gangrene; I48.0 Paroxysmal atrial fibrillation; I25.119 Atherosclerotic heart disease of native coronary artery with unspecified angina pectoris; K22.2 Esophageal obstruction; K20.9 Esophagitis, unspecified; K29.70 Gastritis, unspecified, without bleeding; R09.02 Hypoxemia; D63.1 Anemia in chronic kidney disease; R53.81 Other malaise
CPT/HCPCS: 33208; 36140; 36415; 36600; 43450; 71045; 71046; 74150; 77002; 80048; 80053; 80061; 82550; 82553; 82805; 82948; 83690; 83735; 83880; 84100; 84484; 85014; 85018; 85025; 85610; 85730; 86704; 86706; 87340; 88305; 88312; 90962; 93005; 93306; 93452; 93458; 94660; 96367; 99284; C1766; C1898; J0360; J1644; J1940; J2001; J2250; J2270; J2405; J2550; J2765; J3370; J7030; J7040; J7042; Q4081; Q9967

== ENCOUNTER 2017-11-13 13:29 | Observation (INO) | payer MEDICARE ==
[~2017-11-13] VITALS: Ht 188 cm; Wt 45.4 kg
[~2017-11-13 13:29] MED LIST changes: +AMIODARONE HCL200 MG PO; +LABETALOL HCL100 MG PO; +LISINOPRIL20 MG PO; +LOPRESSOR25 MG PO; +MINOCYCLINE HCL50 MG PO; +TRAZODONE HCL100 MG PO; +TUMS200 MG PO
--- OUTSIDE RECORDS SUMMARY | 2017-11-13 13:34 | XMS REPORT ---
Author Author [facility] Address Unknown Phone Unavailable Care Team Providers Care Cashier Credit Name Role Phone ALONZO PIÑA Unavailable Unavailable HENRIQUE LANDRY Unavailable Unavailable Problems This patient has no known problems. Allergies, Adverse Reactions, Alerts This patient has no known allergies or adverse reactions. Medications This patient has no known medications. Results Test Description Test Time Test Comments Text Results Atomic Results Result Comments CHEST SINGLE (PORTABLE) [place] [address] Patient Name: ABDELRAHMAN SALINAS MR #: [id number] : 1950 Age/Sex: 67/M Req #: [id number] Adm Physician: ALONZO PIÑA MD Ordered by: Leatha Bledsoe [employer] Report #: [id number] Location: [facility] Room/Bed: [place] [address] Procedure: [id number] DX/CHEST SINGLE (PORTABLE) Exam Date: 11/06/17 Exam Time: 0530 REPORT STATUS: Signed CHEST SINGLE (PORTABLE), 11/06/2017 5:00 AM Technique: CHEST SINGLE ( PORTABLE) Comparison: 11/01/2017 Clinical history: Follow-up pneumonia Findings: See Impression Impression: 1. Lines/Tubes: Placement of right chest wall dual-lead pacer, right atrial and ventricular leads. Stent projects over the subclavian/brachiocephalic stent. 2. Normal cardiomediastinal silhouette for technique. 3. Mild bilateral opacities, favor edema with bibasilar atelectasis and layering effusions. Signed by : Dr Sara Preciado MD on 11/06/2017 6:21 AM Dictated By: SARA PRECIADO MD 0 Transcribed By: QAMAR on 11/06/17620 COPY TO: LEATHA BLEDSOE NP CHEST SINGLE (PORTABLE) [place] [address] Patient Name: ABDELRAHMAN SALINAS MR #: [id number] : 1950 Age/Sex: 67/M Req #: [id number] Adm Physician: ALONZO PIÑA MD Ordered by: RANDY MATHIS MD Report #: [id number] Location: [facility] Room/Bed: [place] [address] Procedure: [id number] DX/CHEST SINGLE (PORTABLE) Exam Date: Exam Time: 0835 REPORT STATUS: Signed PROCEDURE: CHEST SINGLE (PORTABLE) COMPARISON: 11/01/2017. INDICATIONS: PACEMAKER PLACEMENT FINDINGS: The lungs remain well-inflated. Interval placement of a right subclavian approach implantable cardiac device , with leads projecting over the expected region of the right atrium and right ventricle. No pneumothorax. No air space consolidation. Trace bilateral pleural effusions are suspected, unchanged compared to 11/01/2017 accounting for differences in technique. Stable cardiomediastinal contour with tortuosity and atherosclerotic calcification of the thoracic aorta. Left subclavian/brachiocephalic venous stent is unchanged in position. No pulmonary edema. No acute osseous abnormality. CONCLUSION: Interval placement of a right subclavian implantable cardiac device, positioned as described. No pneumothorax. Dictated by: Elisha Plata M.D. on 11/05/2017 at 9:09 Electronically approved by: Elisha Plata M.D. on 11/05/2017 at 9:09 Dictated By: ELISHA PLATA MD 8 Transcribed By: ROS on 11/05/17908 COPY TO: RANDY MATHIS MD CHEST SINGLE (PORTABLE) [place] [address] Patient Name: ABDELRAHMAN SALINAS MR #: [id number] : 1950 Age/Sex: 67/M Req #: [id number] Adm Physician: ALONZO PIÑA MD Ordered by: LEONA BOO MD Report #: [id number] Location: [facility] Room/Bed: [place] [address] Procedure: [id number] DX/CHEST SINGLE (PORTABLE) Exam Date: 11/01/17 Exam Time: 1355 REPORT STATUS: Signed EXAMINATION: Chest, CHEST SINGLE (PORTABLE) INDICATION: Chest pain COMPARISON: Portable chest 11/15/2015 FINDINGS: LINES: None. Heart: Normal cardiac silhouette. Vascular: The pulmonary vasculature is within normal limits. Atherosclerotic calcifications of the aortic arch. Mediastinum: No mediastinal, hilar, or axillary mass or lymphadenopathy. Lungs: No parenchymal mass. Bilateral diffuse airspace opacifications. Pleura: No pleural effusion. No pneumothorax. Bones : No acute osseous abnormality. Degenerative changes of the thoracic spine. Soft tissues: Normal. Impression: Bilateral diffuse airspace opacifications may represent edema or pneumonia. Signed by: Dr. Colin Bond M.D. on 11/01/2017 2:09 PM Dictated By: COLIN BOND MD 08 Transcribed By: QAMAR on 11/01/171408 COPY TO: LEONA BOO MD CT ABDOMEN WO [place] [address] Patient Name: ABDELRAHMAN SALINAS MR #: [id number] : 1950 Age/Sex: 67/M Req #: [id number] Adm Physician: Ordered by: CONCEPCION HERNANDEZ NP Report #: [id number] Location: ER Room/Bed: Procedure: [id number] CT/CT ABDOMEN WO Exam Date: 10/31/17 Exam Time: 1900 REPORT STATUS: Signed CT Abdomen Unenhanced CPT CODE: 35258 INDICATION: Upper abdominal pain TECHNIQUE: 5 mm collimation axial images obtained from lung base to iliac crest without intravenous contrast. RADIATION DOSE: Total DLP: 131.8 mGy*cm Estimated effective dose: (DLP x 0.015 x size factor) mSv CTDIvol has been reviewed. It is below the limits set by the Radiation Protocol Committee (RPC). Comparison: CT abdomen/pelvis 07/07/2017. FINDINGS: Lung bases: Posterior pleural effusions measure 3.9 cm on the right and 2.6 cm on the left. There is atelectasis of the overlying lung. The heart is enlarged with diffuse coronary artery calcifications. No pericardial effusion. The esophagus is collapsed. Liver: Normal attenuation. Subtle low attenuating lesion in the right lobe measures about 5 mm and is stable (image 35). There is a stable punctate calcification in segment 7. Gallbladder: Absent. No biliary ductal dilatation. Pancreas: Normal in attenuation without mass or ductal dilatation. Spleen: Normal in attenuation and size without mass. Adrenal Glands: No evidence for mass.. Kidneys: Diffusely atrophic with calcifications of the hilar vessels. No mass. No renal calculus. Bowel: The stomach is collapsed. Visualized portions of the small bowel and large bowel are normal in diameter with normal wall thickness Aorta: Normal in diameter. There are calcifications about the arterial structures. Lymph Nodes: No enlarged lymph nodes.. Bones: Diffusely increased in attenuation consistent with renal osteodystrophy. A sclerotic, nondestructive lesion in L1 is stable IMPRESSION: 1. Moderate sized bilateral pleural effusions with overlying atelectasis. Small foci of pneumonia cannot be excluded.. 2. Cholecystectomy. Normal biliary tree. 3. Cardiomegaly and bilateral renal atrophy. 4. Visualized portions of the bowel are unremarkable. 5. Renal osteodystrophy. 6. Stable low attenuating hepatic lesion, too small to characterize, but likely a cyst. Signed by: Dr. James Haskins MD on 10/31/2017 7:41 PM Dictated By: JAMES HASKINS MD 40 Transcribed By: QAMAR on 10/31/171940 COPY TO: CONCEPCION HERNANDEZ [employer] CHEST 2 VIEWS [place] [address] Patient Name: ABDELRAHMAN SALINAS MR #: [id number] : 1950 Age/Sex: 67/M Req #: [id number] Adm Physician: Ordered by: CONCEPCION HERNANDEZ [employer] Report #: [id number] Location: ER Room/Bed: Procedure: [id number] DX/CHEST 2 VIEWS Exam Date: 10/31/17 Exam Time: 1837 REPORT STATUS: Signed PROCEDURE: Frontal and lateral views of the chest. [facility] ), 07/07/2017, 9:26. [facility], CT, CT ABDOMEN/PELVIS WO, , 12:33. INDICATIONS: SHORTNESS OF BREATH FINDINGS: Lines/tubes: None. Lungs: Lungs are mildly hypoinflated. Linear opacity in the left midlung, likely represent subsegmental atelectasis. Bilateral interstitial opacities extending from the misty, with patchy airspace opacity in the right lower lung and left retrocardiac airspace opacity. Pleura : Blunting of the left costophrenic angle and obscuration of the left hemidiaphragm, consistent with a pleural effusion. Heart and mediastinum: Enlarged cardiac silhouette. Central pulmonary venous congestion. Bones : No acute bony abnormality. IMPRESSION: 1. findings highly suggestive of interstitial and alveolar pulmonary edema. This is likely cardiogenic in nature given the enlarged cardiac silhouette. Venkatesh Concepcion M.D. Dictated by: Venkatesh Concepcion M.D. on 10/31/2017 at 19:09 Electronically approved by: Venkatesh Concepcion M.D. on 2017 at 19:09 Dictated By: VENKATESH CONCEPCION MD 08 Transcribed By: ROS on 1908 COPY TO: CONCEPCION HERNANDEZ GUEST SERVICE HOST CT ABDOMEN/PELVIS [place] [address] Patient Name: ABDELRAHMAN SALINAS MR #: [id number] : 1950 Age/Sex: 67/M Req # : [id number] Adm Physician: Ordered by: HENRIQUE LANDRY MD Report #: [id number] Location: ER Room/Bed: Procedure: [id number] CT/CT ABDOMEN/PELVIS WO Exam Date: 07/07/17 Exam Time: 1235 REPORT STATUS: Signed PROCEDURE: CT ABDOMEN AND PELVIS WITHOUT CONTRAST TECHNIQUE: The abdomen and pelvis were scanned utilizing a multidetector helical scanner from the diaphragm to the lesser trochanter after the oral administration of 900 mL of Gastrografin/water Coronal and sagittal multiplanar reformations were obtained. COMPARISON : 01/01/2016 INDICATIONS: Upper abdominal pain. Vomiting after eating. FINDINGS: ABSENCE OF INTRAVENOUS CONTRAST DECREASES SENSITIVITY FOR DETECTION OF FOCAL LESIONS AND VASCULAR PATHOLOGY. LOWER THORAX: Basilar subsegmental atelectasis. HEPATOBILIARY: No focal hepatic lesions. No biliary ductal dilatation. The gallbladder is absent. SPLEEN: No splenomegaly. PANCREAS: No focal masses or ductal dilatation. ADRENALS: No adrenal nodules. KIDNEYS/URETERS: No hydronephrosis, stones, or solid mass lesions. Numerous calcifications in both kidneys are favored to represent vascular calcifications rather than stones. PELVIC ORGANS/BLADDER: There has been a hysterectomy. Stable 1.3 cm soft tissue nodule abutting the left psoas muscle in the mid pelvis (series 2, image 55) probably represents a surgically repositioned left ovary. PERITONEUM / RETROPERITONEUM: No free air or fluid. LYMPH NODES: No lymphadenopathy. VESSELS: Severe atherosclerotic calcification of the aorta and its branches GI TRACT: No distention or wall thickening. The appendix is normal. No bowel obstruction. BONES AND SOFT TISSUES: Unilateral atrophy of the left rectus abdominis, unchanged and probably due to remote laparotomy. Multilevel degenerative changes of the lumbar spine. IMPRESSION: No specific findings to account for the patient' s pain. No bowel obstruction. Dictated by: Ty Singh M.D. on at 13:36 Electronically approved by: Ty Singh M.D. on at 13:36 Dictated By: TY SINGH MD 1336 Transcribed By: ROS on 07/07/17 1336 COPY TO: HENRIQUE LANDRY MD [facility] (PORTABLE) [place] [address] Patient Name: ABDELRAHMAN SALINAS MR #: [id number] : 1950 Age/Sex: 67/M Req #: [id number] [facility] Physician: Ordered by: HENRIQUE LANDRY MD Report # : [id number] Location: Room/Bed: Procedure: [id number] DX/CHEST SINGLE (PORTABLE) Exam Date: 07/07/17 Exam Time: 929 REPORT STATUS: Signed PROCEDURE: CHEST SINGLE ( PORTABLE) COMPARISON: None. INDICATIONS: STOMACH PAIN, SHORTNESS OF BREATH FINDINGS: Lungs are well-inflated. No focal consolidation, pleural effusion, or pneumothorax. Tortuosity and atherosclerotic calcification of the thoracic aorta. Normal heart size. No pulmonary edema. No acute osseous abnormality. Left subclavian and innominate venous stents. Multiple surgical clips project over the left upper arm presumably related to dialysis fistula creation or graft implantation. CONCLUSION: No acute cardiopulmonary abnormality. Dictated by: Elisha Plata M.D. on 07/07/2017 at 10:03 Electronically approved by: Elisha Plata M.D. on 07/07/2017 at 10:03 Dictated By: ELISHA PLATA MD 1003 Transcribed By: ROS on 07/07/17 1003 COPY TO: HENRIQUE LANDRY MD
--- NOTE | 2017-11-13 14:21 | Diagnostic Imaging Report ---
PROCEDURE:CHEST SINGLE (PORTABLE) TECHNIQUE:Portable AP chest INDICATION:Shortness of breath; syncope COMPARISON:Patients [facility], DX, CHEST SINGLE (PORTABLE), 11/15/2015, 0:49. Patients [facility], DX, CHEST SINGLE (PORTABLE), 11/06/2017, 5:47. November 06, 2017. FINDINGS: The lungs are clear and symmetrically inflated. No pleural effusions. Normal heart size for technique. Normal central vasculature. 2-lead pacemaker over the right hemithorax; leads intact. Left subclavian and brachiocephalic vein stent, with evidence of stent fracture at the subclavian portion. This is unchanged from November 06, 2017 and November 2015. Cholecystectomy clips. Intact skeleton. CONCLUSION: No acute abnormality. Dictated by: Malik Linton M.D. on 11/13/2017 at 14:31 Electronically approved by: Malik Linton M.D. on 11/13/2017 at 14:31
[2017-11-13 14:50] LABS: EOSINOPHILS # (AUTO) 0.1 (0.0-0.4); EOSINOPHILS % 1.7 % (0.0-6.0); HEMATOCRIT 35.7 % (38.2-49.6); LYMPHOCYTES # (AUTO) 0.4 (1.0-3.2); LYMPHOCYTES % 10.6 % (18.0-39.1); MEAN CORPUSCULAR HEMOGLOBIN 31.7 pg (28-32); MEAN CORPUSCULAR HGB CONC 33.6 g/dL (31-35); MEAN CORPUSCULAR VOLUME 94.2 fL (81-99); MONOCYTES # (AUTO) 0.3 (0.2-0.8); MONOCYTES % 7.2 % (4.4-11.3); NEUTROPHILS # (AUTO) 3.3 (2.1-6.9); PLATELET COUNT 143 x10e3/uL (140-360); RED BLOOD COUNT 3.79 x10e6/uL (4.3-5.7); RED CELL DISTRIBUTION WIDTH 14.6 % (11.7-14.4)
[2017-11-13 14:56] LABS: INR 0.98; PROTHROMBIN TIME 13.5 seconds (11.9-14.5)
[2017-11-13 14:57] LABS: PARTIAL THROMBOPLASTIN TIME 32.5 seconds (23.8-35.5)
[2017-11-13 15:04] LABS: ALBUMIN 4.3 g/dL (3.5-5.0); ALBUMIN/GLOBULIN RATIO 1.2 (0.8-2.0); ANION GAP 18.1 mmol/L (8-16); CALCIUM 9.3 mg/dL (8.4-10.2); CREATININE, SERUM 3.82 mg/dL (0.72-1.25); POTASSIUM 3.1 mmol/L (3.5-5.1)
[2017-11-13 15:10] LABS: CREATINE KINASE MB 2.2 ng/mL (0.00-5.00)
--- NOTE | 2017-11-13 15:22 | Diagnostic Imaging Report ---
EXAMINATION: Head CT without contrast HISTORY: Syncope, low blood pressure COMPARISON: None. TECHNIQUE: Multidetector axial images were obtained without contrast from the foramen magnum to the vertex . The images were reconstructed using brain and bone algorithms. Thin section brain images were reformatted into coronal and sagittal planes. Motion/streaking artifact limits the evaluation of the skull base and posterior cranial fossa. FINDINGS: Parenchyma: 1. Moderate confluent periventricular and avelar radiata white matter hypodensities, most likely nonspecific chronic microvascular ischemic changes, with possible involvement of the central salo as well. 2. No mass or hemorrhage. No CT evidence of acute territorial vascular insult. Extra-axial spaces:No abnormal density. No extra-axial fluid collections Brain volume: Mild generalized brain volume loss, with mild bilateral medial temporal predominance, which can be seen in patients with Alzheimer's disease, on the in the appropriate clinical setting. Ventricles: No hydrocephalus or displacement. Arteries: No density suggestive of thrombus. Dural sinuses: No abnormal density. Extra-axial spaces: No abnormal density. Foramen magnum: No mass, Chiari malformation, or basilar invagination. Sella: No obvious mass. Paranasal/mastoid sinuses: Imaged portions unremarkable. Skull/Scalp: No lytic or blastic lesions. No fractures. IMPRESSION: 1. No acute intracranial hemorrhage or cortical infarcts. 2. Moderate confluent chronic microvascular ischemic changes. 3. Slightly disproportionate bilateral medial temporal volume loss as detailed above. Signed by: Dr. Josie Borrego M.D. on 11/13/2017 3:18 PM
--- NOTE | 2017-11-13 15:58 | Diagnostic Imaging Report ---
PROCEDURE: CT ABDOMEN AND PELVIS WITHOUT CONTRAST TECHNIQUE: The abdomen and pelvis were scanned utilizing a multidetector helical scanner from the diaphragm to the lesser trochanter. No IV contrast was adminstered. Coronal and sagittal multiplanar reformations were obtained. DLP: 164.25 mGy-cm COMPARISON: Abdominal CT 07/07/2017 INDICATIONS: ABDOMEN PAIN FINDINGS: ABSENCE OF INTRAVENOUS CONTRAST DECREASES SENSITIVITY FOR DETECTION OF FOCAL LESIONS AND VASCULAR PATHOLOGY. LOWER THORAX: Partially visualized cardiac leads in the right atrium and right ventricle. Right coronary artery calcifications. HEPATOBILIARY: No focal hepatic lesions. Few small calcified granulomas. No biliary ductal dilatation. Cholecystectomy. SPLEEN: No splenomegaly. The spleen measures 11.8 cm in length. PANCREAS: No suspicious contour abnormalities or ductal dilatation. ADRENALS: No adrenal nodules. KIDNEYS/URETERS: No hydronephrosis, stones, or suspicious contour abnormalities. Kidneys appear atrophic. PELVIC ORGANS/BLADDER: Unremarkable. PERITONEUM / RETROPERITONEUM: No free air or fluid. A 1.4 x 1.2 cm soft tissue structure anterior to the left psoas muscle (series 2 image 54) with adjacent surgical clips is stable since 01/01/2016. This is nonspecific but could reflect postsurgical changes related to a failed/removed left renal transplant. LYMPH NODES: No lymphadenopathy. VESSELS: Diffuse vascular calcifications. No abdominal aortic aneurysm. GI TRACT: No distention or wall thickening. The appendix is normal. BONES AND SOFT TISSUES: No acute or aggressive osseous lesions. Stable sclerotic lesion in the posterior aspect of L1 since 01/01/2016. IMPRESSION: No acute abnormalities in the abdomen and pelvis. Dictated by: Lul Beckman M.D. on 11/13/2017 at 16:07 Electronically approved by: Lul Beckman M.D. on 11/13/2017 at 16:07
[2017-11-13] MEDS ORDERED: POTASSIUM CHLORIDE 20 MEQ TAB CR PO STA (16:31)
[2017-11-13] MEDS ORDERED: ONDANSETRON HCL 4 MG ORAL DISINTEGRATING TAB PO ONE (16:45)
[2017-11-13] MEDS ORDERED: ASPIRIN 81 MG CHEW TAB PO ONE (18:30)
[2017-11-13] MEDS ORDERED: SODIUM CHLORIDE FLUSH 10 ML SYR INJ PRN (18:30)
[2017-11-13] MEDS ORDERED: DICYCLOMINE HCL 10 MG CAP PO PRN (19:15)
[2017-11-13] MEDS ORDERED: ONDANSETRON HCL 4 MG ORAL DISINTEGRATING TAB PO PRN (19:15)
[2017-11-13] MEDS ORDERED: CLONIDINE HCL 0.1 MG TAB PO PRN (19:15)
[2017-11-13] MEDS ORDERED: INSULIN DETEMIR 100 UNIT/ML PEN SQ SCH (19:15)
--- NOTE | 2017-11-13 19:56 | Consultation ---
DATE OF CONSULTATION: November 13, 2017 HISTORY OF PRESENT ILLNESS: Mr. Valenzuela is well known to me. He is a 67-year-old gentleman recently discharged. He has underlying history of severe coronary artery disease, coronary artery bypass surgery as well as recently AICD pacemaker. Developed nausea, vomiting and diarrhea and went to dialysis. During dialysis, he apparently became hypotensive and had a syncopal episode. He is currently, awake, alert and lying supine. No apparent distress. One of the needles is still in the AV fistula. He is arousable. ECG shows abnormal rhythm but will compare it to the old ECG. White count 4.1 with a hemoglobin 12. Potassium 3.1. He is status post dialysis. Bicarbonate 29. Creatinine 3.2. BNP 601. Patient states that the nausea, vomiting and diarrhea starting last night. He underwent chest x-ray, abdominal CT showed no acute abnormalities of the abdomen and pelvis. He also had a brain CT done. Please see official report, but the patient is completely nonfocal and has no focal signs of any CVA. His chest x-ray is negative. ALLERGIES: NO APPARENT DRUG ALLERGIES. MEDICATIONS: Not reconciled yet. SOCIAL HISTORY: Patient does not smoke or drink. Has a very supportive . PHYSICAL EXAMINATION: GENERAL: He is found to be awake, alert and lying supine. No apparent distress. VITALS: Blood pressure 133/56. Pulse rate 60. Afebrile. Respiratory rate 16. Oxygen saturation 99% HEAD AND NECK: Cornea clear. Mucosa dry. LUNGS: Decreased air entry right lower zone more than left but relatively clear. No rales. HEART: S1 S2 audible. ABDOMEN: Otherwise soft and nontender. LOWER EXTREMITY EXAMINATION: Shows no edema. IMPRESSION AND PLAN: Nausea, vomiting and diarrhea, probably gastroenteritis. Must rule out Clostridium difficile. I believe the syncopal episode was due to fluid removal on dialysis. He is now relatively asymptomatic. I spoke to the dialysis nurse and removed the dialysis needle from the AV fistula. Clostridium difficile to be sent. The patient to be admitted. I will follow with you. See orders. Job#: [id number]
[2017-11-13] MEDS: CINACALCET 30 MG TAB PO SCH (21:00)
[2017-11-13] MEDS: MINOCYCLINE HCL 50 MG CAP PO SCH (21:00)
[2017-11-13] MEDS: TRAZODONE HCL 50 MG TAB PO SCH (21:00)
[2017-11-13 21:49] VITALS: BP 158/68
[2017-11-13 21:55] VITALS: BP 158/68
[2017-11-14 02:29] LABS: CREATINE KINASE MB 1.5 ng/mL (0.00-5.00)
[2017-11-14 04:00] VITALS: BP 173/72
[2017-11-14] MEDS: LEVOTHYROXINE SODIUM 75 MCG TAB PO SCH (06:15)
[2017-11-14 06:59] LABS: BASOPHILS % 1.2 % (0.0-1.0); EOSINOPHILS # (AUTO) 0.1 (0.0-0.4); EOSINOPHILS % 3.6 % (0.0-6.0); HEMATOCRIT 27.8 % (38.2-49.6); HEMOGLOBIN 9.2 g/dL (14.0-18.0); LYMPHOCYTES # (AUTO) 0.7 (1.0-3.2); LYMPHOCYTES % 22.4 % (18.0-39.1); MEAN CORPUSCULAR HEMOGLOBIN 31.6 pg (28-32); MEAN CORPUSCULAR HGB CONC 33.1 g/dL (31-35); MEAN CORPUSCULAR VOLUME 95.5 fL (81-99); MONOCYTES # (AUTO) 0.4 (0.2-0.8); MONOCYTES % 12.7 % (4.4-11.3); NEUTROPHILS % 59.8 % (38.7-80.0); PLATELET COUNT 120 x10e3/uL (140-360); RED BLOOD COUNT 2.91 x10e6/uL (4.3-5.7); RED CELL DISTRIBUTION WIDTH 14.9 % (11.7-14.4)
[2017-11-14 07:15] LABS: ANION GAP 17.2 mmol/L (8-16); CALCIUM 8.6 mg/dL (8.4-10.2); CREATININE, SERUM 5.27 mg/dL (0.72-1.25); POTASSIUM 4.2 mmol/L (3.5-5.1)
[2017-11-14 08:00] VITALS: BP 177/77
[2017-11-14] MEDS: SEVELAMER CARBONATE 800 MG TAB PO SCH ×3 (08:00→17:00)
[2017-11-14] MEDS: MINOCYCLINE HCL 50 MG CAP PO SCH ×2 (09:00→21:00)
[2017-11-14] MEDS ORDERED: LABETALOL HCL 100 MG TAB PO SCH (09:00)
[2017-11-14] MEDS: AMIODARONE HCL 200 MG TAB PO SCH (10:00)
[2017-11-14] MEDS: CLOPIDOGREL BISULFATE 75 MG TAB PO SCH (10:00)
[2017-11-14] MEDS: DONEPEZIL HCL 5 MG TAB PO SCH (10:00)
[2017-11-14] MEDS: CALCIUM CARBONATE 500 MG CHEWABLE TABS PO SCH ×2 (10:00→17:38)
[2017-11-14] MEDS: FUROSEMIDE 40 MG TAB PO SCH ×3 (10:00→17:38)
[2017-11-14] MEDS: LISINOPRIL 20 MG TAB PO SCH (10:00)
[2017-11-14] MEDS: PANTOPRAZOLE SOD 40 MG TABEC PO SCH ×2 (10:00→16:15)
[2017-11-14 10:41] LABS: CREATINE KINASE MB 1.4 ng/mL (0.00-5.00)
--- NOTE | 2017-11-14 10:41 | Consultation ---
DATE OF CONSULTATION: November 14, 2017 CARDIOLOGY CONSULTATION REASON FOR CONSULTATION: Syncope. HISTORY OF PRESENT ILLNESS: Mr. Valenzuela is a 67-year-old gentleman with a past medical history of hypertension, hypercholesterolemia, coronary artery disease with prior history of PCI, end-stage renal disease on hemodialysis Friday, and Friday, history of prior NC and stroke. The patient also has a history of permanent pacemaker implantation on November 05, 2017, for intermittent heart block that was present on the last hospitalization. The patient ended up leaving the hospital on November 07, 2017, and had been doing well. About the day before admission, he started developing abdominal pain, diarrhea, loose stools, low-grade fevers and endorsed gastroenteritis-type symptoms. Nonetheless, he went for his scheduled hemodialysis on November 13, 2017. Two hours into the dialysis session, he became profoundly hypotensive with blood pressures 70s/50s. At one point, he passed out. He was brought here for further care and management. The patient was conservatively managed and clinically feels back to baseline. He denies any further loose stools or abdominal pain and reports that he is without any dizziness or lightheadedness currently. Telemetry reviewed revealing functioning pacemaker and no arrhythmic events. Baseline EKG revealed sinus rhythm with premature atrial contractions, LVH, left anterior fascicular block, no ST-T-wave changes concerning for ischemia. PAST MEDICAL HISTORY 1. Hypertension, essential. 2. Hypercholesterolemia. 3. Calcified coronary artery disease with prior history of PCI to the LAD in 2008. 4. History of stroke in 1998 with reasonably good recovery. 5. Peripheral arterial disease. 6. End-stage renal disease on hemodialysis on Friday, and Friday. He does have a left arm AV fistula. 7. Type-2 diabetes with end-organ damage. 8. Anxiety. 9. Prior history of high-grade AV block, status post dual-chamber pacemaker in October 2017. 10. Prior history of NC. 11. History of cholecystectomy. 12. Peripheral neuropathy. 13. Prior left AV fistula arm placement. FAMILY HISTORY: Father at 55 of colon cancer. Mother is alive, a full diabetic and hypertensive. Several brothers and sisters with coronary artery disease. SOCIAL HISTORY: He is . He stopped smoking in the remote past. Denies any alcohol or illicit drug use. ALLERGIES: NO KNOWN DRUG ALLERGIES. HOME MEDICATIONS: Extensive list includes: 1. Amiodarone 200 mg daily. 2. Calcium carbonate 600 t.i.d. 3. Sensipar 30 mg nightly. 4. Plavix 75 mg daily. 5. Dicyclomine 10 mg as needed. 6. Aricept 10 mg daily. 7. Lasix 80 mg b.i.d. 8. Lantus subcutaneous nightly. 9. Labetalol 100 mg b.i.d. 10. Synthroid 75 mcg daily. 11. Lisinopril 30 mg daily. 12. Zofran 4 mg daily. 13. Protonix 40 mg daily. 14. Trazodone 100 mg nightly. 15. Nifedipine 60 mg b.i.d. 16. Renagel 800 mg t.i.d. REVIEW OF SYSTEMS GENERAL: Positive for low-grade fever. No chills. No weight changes. HEENT: Occasional headaches. No visual complaints, sore throat or stuffy nose. RESPIRATORY: Denies any pleuritic chest pain. Chronic class II to III exertional dyspnea. CARDIOVASCULAR: Denies any chest pain, orthopnea, palpitations. Syncope as per HPI. GI: Denies any current abdominal pain. Did have loose stools as noted above. No bright red blood per rectum, melena or hematemesis. : Positive for end-stage renal disease on hemodialysis with oliguria. MUSCULOSKELETAL: Has chronic back pain and knee pain. HEMATOLOGY: Positive for easy bruising and bleeding. ID: No known infectious history. ENDOCRINE: Positive for history of diabetes. NEUROLOGIC: Positive prior history of stroke and utilizes a cane for ambulation. OTHER: The remainder of the review of systems negative unless otherwise mentioned. PHYSICAL EXAMINATION VITALS: Height 74 inches, weight 98 pounds, BMI 12.6. Temperature currently is 97.2, pulse 60, respiratory rate 18, blood pressure 156/68, 93% on room air. GENERAL: This is an emaciated, chronically ill-appearing gentleman who is currently in no apparent distress. HEENT: Normocephalic and atraumatic. The extraocular movements are intact. Oropharynx is clear. NECK: No elevation of jugular venous pulsation. Faint bilateral carotid bruits versus transmitted fistula sound. CARDIOVASCULAR: Regular rate and rhythm. Normal S1 and S2. A 2/6 to 3/6 systolic murmur at the right upper sternal border. LUNGS: Relatively clear to auscultation bilaterally. There is a noteworthy pacemaker scar that is well healed. BACK: No costovertebral angle tenderness. EXTREMITIES: Warm with left arm AV fistula that is patent. Absent right radial pulse. Markedly diminished pedal pulses. Right groin with 1 to 2+ pulse. Left groin with 1 to 2+ pulse. NEUROLOGIC: There is some slight old left-sided body weakness. LABS: Reviewed. White count 3.3, hemoglobin 9.2, hematocrit 27.8, platelets 120. Sodium 139, potassium 4.2, chloride 99, bicarb 27, BUN 13, creatinine 5.27, glucose 73, calcium 8.6, AST 27, ALT 6, alk phos 106, total protein 7.9, albumin 4.3. Troponin went from 0.080 to 0.074 INR is 0.98. Abdomen and pelvis CT shows no acute abnormalities in the abdomen and pelvis. Brain CT shows moderate chronic microvascular ischemic changes. Chest x-ray reveals 2-lead pacemaker over the right hemithorax and a left subclavian and brachiocephalic stent. DIAGNOSES 1. Syncope secondary to transient hypotension. Suspect this is the perfect storm of volume loss related to diarrhea, taking his antihypertensive medication as well as removal of fluid via hemodialysis. 2. History of conduction system disease, status post dual-chamber pacemaker that is functioning. 3. Coronary artery disease, complex calcified, with last cardiac catheterization in October 2017 which revealed several complex calcified disease with 70% left anterior descending, 70% circumflex, 40% to 50% right coronary artery lesions. 4. End-stage renal disease on hemodialysis with hypertensive heart disease. 5. Debility and weakness. 6. History of stroke. PLAN/RECOMMENDATIONS 1. From a cardiovascular standpoint, treatment will be largely supportive. 2. Patient's syncope is unrelated to a rhythm issue, and he does have a pacemaker to protect him. 3. I think by history I suspect mechanism of syncope was hypotensive-related. 4. Patient denies any angina or anginal-equivalent symptoms and has ruled out for NC with serial cardiac enzymes. 5. Yesterday the patient had all his antihypertensives with the exception of Procardia given. We will probably restart that medication today at half dose. 6. I appreciate the primary team and consultants. 7. In terms of his coronary disease, we are opting for medical management and recommend antiplatelet therapy. Job#: [id number] MH
[2017-11-14 12:00] VITALS: BP 170/88
[2017-11-14 16:00] VITALS: BP 168/71
[2017-11-14] MEDS ORDERED: NIFEDIPINE CR 30 MG TAB PO SCH ×2 (16:15→17:00)
[2017-11-14] MEDS ORDERED: DEXTROSE 50% SYRINGE 50 ML IV PRN (16:30)
[2017-11-14] MEDS: INSULIN REGULAR, HUMAN 100 UNIT/1 ML 3ML VIAL SQ SCH ×2 (16:30→21:00)
--- NOTE | 2017-11-14 17:51 | History and Physical ---
PRIMARY CARE PROVIDER: Dr. Destin Mohr. INSIGHTS STRATEGIST: Dr. Terry. CHIEF COMPLAINT: Syncope. HISTORY OF PRESENT ILLNESS: Mr. Valenzuela is a 67-year-old gentleman. He has end-stage renal disease. He has been on dialysis for a couple years. He was at dialysis yesterday. He got a full treatment. His blood pressure was starting to get low at the end of the treatment, and when the patient tried to get up he passed out and was transported to the ED for evaluation. REVIEW OF SYSTEMS: He denies fever, chills or weight loss. He denies sinus congestion or sore throat. Denies chest pain or palpitations. He denies shortness of breath, wheezing or cough. He denies abdominal pain, nausea, vomiting or melena. Denies dysuria or flank pain. He denies rash or pruritus. He denies joint pain or swelling. Denies bleeding or bruising. He denies headache or vertigo. He had an unexplained loss of consciousness. He denies depression, agitation, homicidal or suicidal ideation. PAST MEDICAL HISTORY: Significant for longstanding hypertension and type 2 diabetes, hyperlipidemia, coronary artery disease with coronary stent placed in 2008, chronic diastolic heart failure, peripheral arterial disease, end-stage renal disease on hemodialysis for a couple of years, stroke in 1998 with minimal residual. He was admitted last month with an AV block and had a pacemaker placed about a month ago. He has had an AV fistula and he has had a cholecystectomy. REGULAR MEDICATIONS: Amiodarone 200 mg daily. Calcium carbonate 200 mg 3 tabs twice a day. Sensipar 30 mg at bedtime. Plavix 75 mg daily. Dicyclomine 10 mg as needed. Aricept 10 mg daily. Lasix 80 mg twice daily. Lantus insulin 2 units at bedtime as needed. Labetalol 100 mg twice daily. Levothyroxine 75 mcg daily. Lisinopril 30 mg daily. Doxycycline 100 mg twice a day. Zofran as needed. Protonix 40 mg before breakfast. Trazodone 100 mg at bedtime. Renvela 800 mg 3 times a day with meals. Procardia XL 60 mg q.12 hours. ALLERGIES: NO KNOWN DRUG ALLERGIES. FAMILY HISTORY: Significant for hypertension and diabetes. SOCIAL HISTORY: The patient is . He is bilingual and speaks good Khmer. He does not smoke, drink or use illegal drugs. He is generally independently functioning. PHYSICAL EXAM: PSYCHIATRIC: He is awake and alert, mostly oriented, a little bit confused at times. He is in no acute distress. Has a normal body habitus. VITAL SIGNS: Blood pressure 170/88. Pulse 60 and regular. Respiratory rate 18. O2 sat 97%. Temperature 97.2. HEENT: Head is atraumatic. His eyes are anicteric with clear conjunctivae. Ears and nares are without erythema or discharge. Oropharynx is clear. NECK: Supple with no mass or thyromegaly. LYMPHATIC SYSTEM: He has no palpable cervical, axillary or inguinal adenopathy. CARDIOVASCULAR: His heart has a regular rate and rhythm without murmur or extra heart sounds. No carotid bruit. He has no peripheral edema. Has weak dorsal pedal pulses. RESPIRATORY: Clear to auscultation and percussion with normal respiratory effort. GASTROINTESTINAL: His abdomen is soft without organomegaly, masses or tenderness. Normal bowel sounds present. CUTANEOUS: His skin is warm and dry to touch with no rash or skin breakdown. MUSCULOSKELETAL: Joints are in normal alignment without erythema or swelling. Has no calf tenderness. NEUROLOGIC: Exam is nonfocal with intact cranial nerves and no motor or sensory deficits. DIAGNOSTIC STUDIES: Chest x-ray shows no acute disease. CT scan of brain shows no acute disease, but moderate chronic microvascular ischemic changes, some confluent, in the deep white matter and some moderate volume loss. CT of the abdomen and pelvis shows no acute disease. BNP 601.0. Troponin 0.080, 0.074, 0.063. His chemistry profile shows normal electrolytes. CO2 is 29. Creatinine 3.82. BUN 10 for a GFR 16. Glucose 140. Calcium 9.3. Transaminases, bilirubin and alkaline phos are normal. CBC shows a white count of 4.14 with 70% neutrophils, 11% lymphocytes. Hemoglobin 12.0, hematocrit 35.7 and platelet count 143,000. His coags are normal. IMPRESSION: 1. Syncope, most likely orthostatic in nature caused progressive hemodialysis and hypovolemia. The patient has been asymptomatic since. His workup so far is negative. He has a permanent pacemaker for AV disassociation that was put in last month. Cardiology has see the patient and cleared him for discharge, feeling no further workup is necessary. 2. End-stage renal disease. Nephrology has been consulted and he should be dialyzed tomorrow. 3. Hypertension complicated by coronary disease and end-stage renal disease. Will continue his home medications of amiodarone, labetalol, lisinopril, Procardia and Plavix. 4. Type 2 diabetes. Will use sliding scale insulin for now and a diabetic diet. Will continue his 2 units of Lantus at bedtime. 5. For prophylaxis, he will be on heparin subcu for DVT prophylaxis and Protonix for GI prophylaxis. Job#: [id number]
[2017-11-14 20:00] VITALS: BP 185/78
[2017-11-14] MEDS: NIFEDIPINE CR 30 MG TAB PO SCH (21:42)
[2017-11-14] MEDS: HEPARIN SOD (PORCINE) 5,000 UNIT/ML VIAL SC SCH (21:46)
[2017-11-14] MEDS: LABETALOL HCL 100 MG TAB PO SCH (21:46)
[2017-11-14] MEDS: CINACALCET 30 MG TAB PO SCH (21:46)
[2017-11-14] MEDS: TRAZODONE HCL 50 MG TAB PO SCH (22:44)
[2017-11-15] VITALS (7 sets, daily range): BP systolic 97–185; BP diastolic 51–78
[2017-11-15] MEDS: FUROSEMIDE 40 MG TAB PO SCH ×2 (06:00→17:09)
[2017-11-15] MEDS: LEVOTHYROXINE SODIUM 75 MCG TAB PO SCH (06:10)
[2017-11-15] MEDS: INSULIN REGULAR, HUMAN 100 UNIT/1 ML 3ML VIAL SQ SCH ×3 (07:30→16:30)
[2017-11-15] MEDS: PANTOPRAZOLE SOD 40 MG TABEC PO SCH ×2 (07:30)
[2017-11-15] MEDS: SEVELAMER CARBONATE 800 MG TAB PO SCH ×3 (08:00→17:00)
[2017-11-15 08:53] LABS: BASOPHILS # (AUTO) 0.1 (0.0-0.1); BASOPHILS % 1.7 % (0.0-1.0); EOSINOPHILS # (AUTO) 0.1 (0.0-0.4); EOSINOPHILS % 3.9 % (0.0-6.0); HEMATOCRIT 28.2 % (38.2-49.6); HEMOGLOBIN 9.2 g/dL (14.0-18.0); LYMPHOCYTES # (AUTO) 0.7 (1.0-3.2); LYMPHOCYTES % 18.3 % (18.0-39.1); MEAN CORPUSCULAR HEMOGLOBIN 31.5 pg (28-32); MEAN CORPUSCULAR HGB CONC 32.6 g/dL (31-35); MEAN CORPUSCULAR VOLUME 96.6 fL (81-99); MONOCYTES # (AUTO) 0.4 (0.2-0.8); MONOCYTES % 11.1 % (4.4-11.3); NEUTROPHILS # (AUTO) 2.3 (2.1-6.9); NEUTROPHILS % 64.7 % (38.7-80.0); PLATELET COUNT 116 x10e3/uL (140-360); RED BLOOD COUNT 2.92 x10e6/uL (4.3-5.7); RED CELL DISTRIBUTION WIDTH 14.6 % (11.7-14.4)
[2017-11-15] MEDS: CLOPIDOGREL BISULFATE 75 MG TAB PO SCH (09:00)
[2017-11-15] MEDS: LISINOPRIL 20 MG TAB PO SCH (09:00)
[2017-11-15] MEDS: HEPARIN SOD (PORCINE) 5,000 UNIT/ML VIAL SC SCH (09:00)
[2017-11-15] MEDS: AMIODARONE HCL 200 MG TAB PO SCH (09:00)
[2017-11-15] MEDS: CALCIUM CARBONATE 500 MG CHEWABLE TABS PO SCH ×2 (09:00→17:00)
[2017-11-15] MEDS: NIFEDIPINE CR 30 MG TAB PO SCH (09:00)
[2017-11-15] MEDS: LABETALOL HCL 100 MG TAB PO SCH (09:00)
[2017-11-15] MEDS: MINOCYCLINE HCL 50 MG CAP PO SCH (09:00)
[2017-11-15] MEDS: DONEPEZIL HCL 5 MG TAB PO SCH (09:00)
[2017-11-15 09:15] LABS: ANION GAP 14.8 mmol/L (8-16); CALCIUM 7.8 mg/dL (8.4-10.2); MAGNESIUM 1.9 MG/DL (1.3-2.1); PHOSPHORUS 4.1 MG/DL (2.3-4.7); POTASSIUM 3.8 mmol/L (3.5-5.1)
[2017-11-15 09:36] LABS: THYROID STIMULATING HORMONE 1.444 uIU/mL (0.350-4.940)
[2017-11-15] MEDS ORDERED: SODIUM CHLORIDE 0.9% 1000ML 1,000 ML ONE (16:49)
--- NOTE | 2017-11-17 04:03 | Discharge Summary ---
ADMISSION DIAGNOSES 1. Syncope. 2. End-stage renal disease. 3. Hypertension. 4. Type 2 diabetes. DISCHARGE DIAGNOSES 1. Syncope. 2. End-stage renal disease. 3. Hypertension. 4. Type 2 diabetes. 5. Ruled out cerebrovascular accident. HISTORY: Patient has a history of hypertension, type 2 diabetes, hyperlipidemia, CAD with stent in 2008, chronic diastolic heart failure, PAD, end-stage renal disease, on hemodialysis, stroke in 1998 with minimal residual. He was admitted last month with an AV block and had a pacemaker placed. He also has an AV fistula and a cholecystectomy. HOSPITAL COURSE: A 67-year-old male with end-stage renal disease, on dialysis for a couple of years. He was at dialysis yesterday and got a full treatment. His blood pressure started to lower at the end of the treatment. When the patient tried to get up, he passed out and was admitted to the ER. Since admission to the ER, the patient has been asymptomatic. Cardiology saw the patient and cleared him for discharge. His only recommendation was to discontinue the nifedipine. Patient will discharge today after being dialyzed. Nephrology also okay with discharge. On admission, the patient had a CT of the abdomen, which was negative. CT of the brain which showed no acute hemorrhage or infarct. Chest x-ray which showed no acute abnormalities. Patient will discharge home and follow up with normal dialysis schedule and same home medications minus nifedipine. He will also follow up with cardiology as needed. DICTATED BY LEATHA BLEDSOE NP ALONZO PIÑA MD Job#: [id number] [place]
== END 2017-11-15 22:05 | disposition home or self-care (01) ==
LOC: ER 13:34 → EDBEDREQ 19:50 → MED/SURG 21:08
PROVIDERS: ADMIT Internal Medicine; ATTEND Internal Medicine
DX: R55 Syncope and collapse (principal); I13.2 Hypertensive heart and chronic kidney disease with heart failure and with stage 5 chronic kidney disease, or end stage renal disease; N18.6 End stage renal disease; Z99.2 Dependence on renal dialysis; E78.5 Hyperlipidemia, unspecified; I50.32 Chronic diastolic (congestive) heart failure; I25.10 Atherosclerotic heart disease of native coronary artery without angina pectoris; I95.1 Orthostatic hypotension; Z86.73 Personal history of transient ischemic attack (TIA), and cerebral infarction without residual deficits; I25.2 Old myocardial infarction; R19.7 Diarrhea, unspecified; Z95.810 Presence of automatic (implantable) cardiac defibrillator; E11.42 Type 2 diabetes mellitus with diabetic polyneuropathy
CPT/HCPCS: 36415 ×3; 70450; 71045; 74176; 80048 ×2; 80053; 82550 ×2; 82553 ×2; 82948 ×2; 83540; 83735; 83880; 84100; 84443; 84466; 84484 ×2; 85025 ×3; 85610; 85730; 86850; 86900; 93005; 97139; 99284; G0257; G0378 ×3; J1644; J7030; 90962

== ENCOUNTER 2017-12-05 15:55 | Emergency (ER) | payer MEDICARE ==
[~2017-12-05] VITALS: Ht 157.5 cm; Wt 44.9 kg
--- OUTSIDE RECORDS SUMMARY | 2017-12-05 15:58 | XMS REPORT | Continuity of Care Document ---
Author Author [facility] Organization 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 Name Role Phone ENID STEVENSON MD PCP Insurance Providers Guarantor Manav Salinas Address [address] [phone] Email [email or web address] Payer [facility] Policy Number [id number] Subscriber's Name Manav Salinas Relationship 18 Self / Same As Patient Group Name RETIRED Effective Date 10/13/17 Payer Medicare A & B Policy Number [id number] Subscriber's Name Manav Salinas Relationship 18 Self / Same As Patient Group Name RETIRED Effective Date 06/13/09 Advance Directives Directive Response Recorded Date/Time Does the patient have an advance directive? No 11/13/17 9:55pm If yes, is advance directive on file with [facility]? No 11/13/17 9:55pm If not on file with [facility] will patient provide a copy? No 11/13/17 9:55pm Do you have a Directive to Physician? No 11/13/17 2:37pm Do you have a Medical Power of Thread Marker? No 11/13/17 2:37pm Do you have an out of hospital Do Not Resuscitate Order? No 11/13/17 2:37pm Do you have any special needs we should be aware of? No 11/13/17 2:37pm Do you have a support person here with you today? Yes 11/13/17 2:37pm Did patient receive Notice of Privacy Practices? Yes 11/13/17 2:37pm Did patient receive patient rights and responsibilities? Yes 11/13/17 2:37pm Problems Medical Problem Onset Date Status Abdominal abscess 07/07/2014 Acute Abdominal pain 08/29/2015 Acute Acute abdominal pain Unknown Acute Acute gastroenteritis Unknown Acute Acute renal failure syndrome 07/07/2014 Acute CHF (congestive heart failure) 08/29/2015 Acute Chest pain 01/30/2016 Acute Chest pain Unknown Diabetes 08/29/2015 Acute Diabetes mellitus 11/09/2015 Acute Dysphagia Unknown ESRD (end stage renal disease) 11/09/2015 Acute ESRD (end stage renal disease) on dialysis Unknown GI bleed 11/09/2015 Acute HTN (hypertension) 01/10/2016 Acute Hypertension 08/29/2015 Acute 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 11/09/2015 Acute Hypertensive crisis Unknown Hypoxia Unknown Malnutrition 12/07/2015 Acute Renal failure 01/30/2016 Acute Syncope Unknown Transient hypotension Unknown Volume overload 08/29/2015 Acute Volume overload Unknown Vomiting 12/07/2015 Acute Medications Current Home Medications Medication Dose Units Route Directions Days Qty Instructions Start Date Amiodarone Hcl 200 Mg Tablet 200 Mg Oral Daily 30 Days 11/07/17 Calcium Carbonate (Tums) 200 Mg Tab.chew 3 Tab Oral Twice A Day Cinacalcet Hcl (Sensipar) 30 Mg Tablet 30 Mg Oral Bedtime 30 Tab Clopidogrel Bisulfate (Clopidogrel) 75 Mg Tablet 75 Mg Oral Daily 30 Tab Dicyclomine Hcl 10 Mg Capsule 10 Mg Oral As Needed Donepezil Hcl (Aricept) 5 Mg Tablet 10 Mg Oral Daily 30 Tab Furosemide 20 Mg Tablet 80 Mg Oral Twice A Day Insulin Glargine (Lantus) 100 Units/Ml Ml 2 Unit Sub-Q As Needed Labetalol Hcl 100 Mg Tablet 100 Mg Oral Twice A Day 30 Days 01/26/ 18 Levothyroxine Sodium 75 Mcg Tablet 75 Mcg Oral Daily 30 Tab Lisinopril (Prinavil / Zestril) 20 Mg Tablet 30 Mg Oral Daily 30 Days 11/06/17 Ondansetron (Zofran Odt) 4 Mg Tab.rapdis 4 Mg Oral Every 6 Hours as needed for Vomiting Pantoprazole Sod (Protonix) 40 Mg/Ml Susp 40 Mg Oral Before Breakfast 30 Days 01/14/16 Renvela 800 Mg Oral Three Times Daily With Meals Trazodone Hcl 100 Mg Tablet 100 Mg Oral Bedtime Past Home Medications Medication Directions Ordered Status Amoxicillin/Potassium Clav (Augmentin 875-125 Tablet) 1 Each Tablet, 875 Mg Oral Twice A Day Discontinued Aspirin 81 Mg Tab.chew, 81 Mg Oral Daily Discontinued Calcitriol (Rocaltrol) 0.25 Mcg Capsule, 0.25 Mg Oral Daily Discontinued Carvedilol (Coreg) 12.5 Mg Tab, 25 Mg Oral Twice A Day 02/03/16 Discontinued Carvedilol 6.25 Mg Tablet, 6.25 Mg Oral Twice A Day Discontinued Cinacalcet Hcl (Sensipar) 30 Mg Tablet, 30 Mg Oral Daily Discontinued Dicyclomine Hcl 20 Mg Tablet, 20 Mg Oral Three Times A Day Discontinued Dicyclomine Hcl 10 Mg Capsule, 10 Mg Oral Three Times A Day Discontinued Enalapril Maleate (Vasotec) 10 Mg Tab, 20 Mg Oral Twice A Day 02/03/16 Discontinued Esomeprazole Magnesium (Nexium) 40 Mg Capsule.dr, 40 Mg Oral Twice A Day Discontinued Hydrocodone Bit/Acetaminophen (Hydrocodon-Acetaminophen 5-325) 1 Each Tablet, 1 Tab Oral Qid Prn Discontinued Levofloxacin (Levaquin) 500 Mg Tablet, 500 Mg Oral Daily Discontinued Levothyroxine Sodium 75 Mcg Tablet, 75 Mcg Oral Daily Discontinued Levothyroxine Sodium (Synthroid) 75 Mcg Tab, 75 Mcg Oral Daily@06 01/14/16 Discontinued Levothyroxine Sodium (Tirosint) 50 Mcg Capsule, 50 Mg Oral Daily Discontinued Megestrol Acetate 800 Mg/20ML Cup, 400 Mg Oral Every 12 Hours 01/14/16 Discontinued Metoclopramide Hcl (Reglan) 10 Mg Tablet, 10 Mg Oral Before Meals And At Bedtime 01/14/16 Discontinued Metoclopramide Hcl (Reglan) 10 Mg Tablet, 10 Mg Oral Before Meals And At Bedtime 09/01/15 Discontinued Metoclopramide Hcl (Reglan) 5 Mg Tablet, 5 Mg Oral Tid Ac Discontinued Metoprolol Tartrate 25 Mg Tablet, 25 Mg Oral Twice A Day Discontinued Minocycline Hcl 50 Mg Capsule, 100 Mg Oral Every 12 Hours 11/06/17 Discontinued Mirtazapine 15 Mg Tab, 15 Mg Oral Bedtime 01/14/16 Discontinued Nifedipine 30 Mg Tabcr, 60 Mg Oral Every 12 Hours 01/14/16 Discontinued Nifedipine (Nifedipine Er) 30 Mg Tablet.er, 30 Mg Oral Twice A Day Discontinued Nitroglycerin (Nitrostat) 0.4 Mg Tab.subl, 1 Tab Sublingual As Needed Discontinued Nitroglycerin 1 Ea Patch, 1 Ea Topically Daily 01/14/16 Discontinued Ondansetron Hcl 4 Mg Tablet, 4 Mg Oral Daily for Nausea Discontinued Ondansetron Hcl (Ondansetron Odt) 4 Mg/Udtablet Tabdp, 4 Mg Oral Q8 Prn Discontinued Polyethylene Glycol 3350 (Miralax) 17 Gm Powd.pack, 17 Gm Oral Twice A Day Discontinued Ramipril 5 Mg Capsule, 5 Mg Oral Bedtime Discontinued Rosuvastatin Calcium (Crestor) 10 Mg Tab, 40 Mg Oral Bedtime Discontinued Rosuvastatin Calcium (Crestor) 10 Mg Tab, Mg Oral Daily Discontinued Rosuvastatin Calcium (Crestor) 10 Mg Tab, 10 Mg Oral Daily Discontinued Sevelamer Carbonate (Renvela) 2.4 Gm Powd.pack, 2400 Mg Oral Three Times A Day Discontinued Sevelamer Hcl (Renvela) 800 Mg Tab, 800 Mg Oral Three Times Daily With Meals 01/14/16 Discontinued Trazodone Hcl 50 Mg Tablet, 50 Mg Oral Bedtime Discontinued Social History Social History Problem Response Recorded Date/Time Onset Date Status Hx Psychiatric Problems No 11/13/2017 9:55pm Not Applicable Not Applicable Hx Eating Disorder No 11/13/2017 9:55pm Not Applicable Not Applicable Hx Substance Use Disorder No 11/13/2017 9:55pm Not Applicable Not Applicable Hx Depression No 11/13/2017 9:55pm Not Applicable Not Applicable Hx Alcohol Use No 11/13/2017 9:55pm Not Applicable Not Applicable Hx Substance Use Treatment No 11/13/2017 9:55pm Not Applicable Not Applicable Hx Physical Abuse No 11/13/2017 9:55pm Not Applicable Not Applicable Smoking Status Start Date Stop Date Never Smoker Hospital Discharge Instructions No hospital discharge instruction information available. Plan of Care Discharge Date 11/15/17 10:05pm Disposition HOME, SELF-CARE Instructions/Education Provided How to Take Your Blood Pressure Hemodialysis Pacemaker Prescriptions See Medication Section Referrals MISHEL ARCHIBALD (Nephrology) Entered Date: 11/15/2017 1:54pm Address: [address] [place] [address] [address] [place] [address] ERICA IBRAHIM MD (Cardiology) Entered Date: 11/15/2017 1:54pm Address: [address] [place] [address] [address] [place] [address] Additional Instructions/Education FOLLOW UP WITH DIALYSIS SCHEDULED PER DR IBRAHIM, DO NOT TAKE MEDICATIONS BEFORE DIALYSIS MONITOR BLOOD PRESSURE ACTIVITY TOLERATED DIET TOLERATED FOLLOW UP WITH MD REGARDING PACEMAKER SCHEDULED SOPHIA LEWIS Functional Status Query Response Date Recorded Assistive Devices Straight Cane November 13, 2017 9:55pm Ambulation Ability Independent November 13, 2017 9:55pm Toileting Ability Independent November 15, 2017 6:43pm Allergies, Adverse Reactions, Alerts No known allergies. Immunizations No immunization information available. Vital Signs Acute Vital Signs Vital Response Date/Time Temperature (Fahrenheit) 97.7 degrees F (97.6 - 99.5) 11/15/2017 4:00pm Pulse Pulse Rate (adult) 59 bpm (60 - 90) 11/15/2017 4:00pm Respiratory Rate 21 bpm (12 - 24) 11/15/2017 4:00pm Blood Pressure 131/61 mm Hg 11/15/2017 4:00pm Height 6 ft 2 in 11/13/2017 9:55pm Weight 100.13 lb 11/14/2017 10:44am Body Mass Index 12.9 kg/m^2 11/14/2017 10:44am Results Laboratory Results Test Name Result Units Flags Reference Collection Date/Time Result Date/ Time Comments Amylase Level 66 U/L 25-125 07/07/2017 9:00am 07/07/2017 10:58am Triglycerides Level 112 MG/DL 0-149 11/01/2017 6:28am 11/01/2017 7: 08am Cholesterol Level 156 MD/DL 0-199 11/01/2017 6:28am 11/01/2017 7:08am Less than 200 mg/dL Low Risk 201 - 239 mg/dL Borderline Risk 240 mg/dl and greater High Risk LDL Cholesterol 98 MG/DL 60-130 11/01/2017 6:28am 11/01/2017 7:08am HDL Cholesterol 36 MG/DL L 40-60 11/01/2017 6:28am 11/01/2017 7:08am Cholesterol/HDL Ratio 4.3 3.9-4.7 11/01/2017 6:28am 11/01/2017 7: 08am Lipase 10 U/L 8-78 10/31/2017 6:10pm 10/31/2017 6:55pm Arterial Blood pH 7.41 7.31-7.41 11/03/2017 10:30am 11/03/2017 12: 07pm Arterial Blood Partial Pressure CO2 41 mmHg 41-51 11/03/2017 10:30am 12:07pm Arterial Blood Partial Pressure O2 42 mmHg *L 80-105 11/03/2017 10:30am 11/03/2017 12:07pm Results called/hand delivered to DR IBRAHIM at 1040 on 11/03/17 by Randy Steel. RB OK. Arterial Blood HCO3 26 mmol/L 23-28 11/03/2017 10:30am 11/03/2017 12: 07pm Arterial Blood Base Excess 1.0 mmol/L -2 - 3 11/03/2017 10:30am 2017 12:07pm Arterial Blood Oxygen Saturation 78.0 % L 95-98 11/03/2017 10:30am 11/03 12:07pm Hepatitis B Surface Antibody, Quant 11.9 mIU/mL Immunity>9.9 11/01/2017 6:28am 11/02/2017 2:27pm Verified by repeat analysis Status of Immunity Anti-HBs Level Inconsistent with Immunity 0.0 - 9.9 Consistent with Immunity >9.9 Hepatitis B Core Total Antibody Negative Negative 11/01/2017 6:28am 11/02/2017 2:27pm Performed at: - [facility] [id number] Certified Peer Specialist: Alejandro Boateng MD, Phone: [phone] Hepatitis B Surface Antigen Negative Negative 11/01/2017 6:28am 11/02 2:27pm White Blood Count 3.61 x10e3/uL L 4.8-10.8 11/15/2017 8:35am 11/15/2017 8:54am Red Blood Count 2.92 x10e6/uL L 4.3-5.7 11/15/2017 8:35am 11/15/2017 8: 54am Hemoglobin 9.2 g/dL L 14.0-18.0 11/15/2017 8:35am 11/15/2017 8:54am Hematocrit 28.2 % L 38.2-49.6 11/15/2017 8:35am 11/15/2017 8:54am Mean Corpuscular Volume 96.6 fL 81-99 11/15/2017 8:35am 11/15/2017 8: 54am Mean Corpuscular Hemoglobin 31.5 pg 28-32 11/15/2017 8:35am 11/15/2017 8:54am Mean Corpuscular Hemoglobin Concent 32.6 g/dL 31-35 11/15/2017 8:35am 11/15/2017 8:54am Red Cell Distribution Width 14.6 % H 11.7-14.4 11/15/2017 8:35am 2017 8:54am Platelet Count 116 x10e3/uL L 140-360 11/15/2017 8:35am 11/15/2017 8: 54am Neutrophils (%) (Auto) 64.7 % 38.7-80.0 11/15/2017 8:35am 11/15/2017 8: 54am Lymphocytes (%) (Auto) 18.3 % 18.0-39.1 11/15/2017 8:35am 11/15/2017 8: 54am Monocytes (%) (Auto) 11.1 % 4.4-11.3 11/15/2017 8:35am 11/15/2017 8: 54am Eosinophils (%) (Auto) 3.9 % 0.0-6.0 11/15/2017 8:35am 11/15/2017 8: 54am Basophils (%) (Auto) 1.7 % H 0.0-1.0 11/15/2017 8:35am 11/15/2017 8: 54am IM GRANULOCYTES % 0.3 % 0.0-1.0 11/15/2017 8:35am 11/15/2017 8:54am Neutrophils # (Auto) 2.3 2.1-6.9 11/15/2017 8:35am 11/15/2017 8:54am Lymphocytes # (Auto) 0.7 L 1.0-3.2 11/15/2017 8:35am 11/15/2017 8: 54am Monocytes # (Auto) 0.4 0.2-0.8 11/15/2017 8:35am 11/15/2017 8:54am Eosinophils # (Auto) 0.1 0.0-0.4 11/15/2017 8:35am 11/15/2017 8:54am Basophils # (Auto) 0.1 0.0-0.1 11/15/2017 8:35am 11/15/2017 8:54am Absolute Immature Granulocyte (auto 0.01 x10e3/uL 0-0.1 11/15/2017 8: 35am 11/15/2017 8:54am Prothrombin Time 13.5 seconds 11.9-14.5 11/13/2017 2:40pm 11/13/2017 2: 58pm Prothromb Time International Ratio 0.98 11/13/2017 2:40pm 2017 2:58pm Oral Anticoagulant Therapy INR Values: 1. Low Intensity Therapy 1.5 - 2.0 2. Moderate Intensity Therapy 2.0 - 3.0 3. High Intensity Therapy(1) 2.5 - 3.5 4. High Intensity Therapy(2) 3.0 - 4.0 5. Panic Value INR > 5.0 Activated Partial Thromboplast Time 32.5 seconds 23.8-35.5 11/13/2017 2: 40pm 11/13/2017 2:58pm Sodium Level 135 mmol/L L 136-145 11/15/2017 8:35am 11/15/2017 9:18am Potassium Level 3.8 mmol/L 3.5-5.1 11/15/2017 8:35am 11/15/2017 9:18am Chloride Level 96 mmol/L L 98-107 11/15/2017 8:35am 11/15/2017 9:18am Carbon Dioxide Level 28 mmol/L 22-29 11/15/2017 8:35am 11/15/2017 9: 18am Anion Gap 14.8 mmol/L 8-16 11/15/2017 8:35am 11/15/2017 9:18am Blood Urea Nitrogen 19 mg/dL 7-11/15/2017 8:35am 11/15/2017 9:18am Creatinine 7.00 mg/dL H 0.72-1.25 11/15/2017 8:35am 11/15/2017 9:18am BUN/Creatinine Ratio 3 L 6-25 11/15/2017 8:35am 11/15/2017 9:18am Estimat Glomerular Filtration Rate 8 ML/MIN L 60- 11/15/2017 8:35am 12/2017 9:18am Ranges were taken from the National Kidney Disease Education Program and the National Kid[employer] Foundation literature. Reference ranges: 60 or greater: Normal 16-59 (for 3 consecutive months): Chronic kidney disease 15 or less: Kidney failure Glucose Level 122 mg/dL H 74-118 11/15/2017 8:35am 11/15/2017 9:18am Calcium Level 7.8 mg/dL L 8.4-10.2 11/15/2017 8:35am 11/15/2017 9:18am Bedside Glucose 96 mg/dL 70-120 11/15/2017 3:42pm 11/15/2017 4:35pm Meter ID: [id number] Phosphorus Level 4.1 MG/DL 2.3-4.7 11/15/2017 8:35am 11/15/2017 9:18am Magnesium Level 1.9 MG/DL 1.3-2.1 11/15/2017 8:35am 11/15/2017 9:18am Iron Level 44 ug/dL L 65-175 11/15/2017 8:35am 11/15/2017 9:18am Total Iron Binding Capacity 154 ug/dL L 261-478 11/15/2017 8:35am 2017 9:18am Percent Iron Saturation 29 % 15-50 11/15/2017 8:35am 11/15/2017 9:18am Transferrin 110 mg/dL L 174-364 11/15/2017 8:35am 11/15/2017 9:18am Total Bilirubin 0.9 mg/dL 0.2-1.2 11/13/2017 2:40pm 11/13/2017 3:05pm Aspartate Amino Transf (AST/SGOT) 27 IU/L 5-34 11/13/2017 2:40pm 2017 3:05pm Alanine Aminotransferase (ALT/SGPT) 6 IU/L 0-55 11/13/2017 2:40pm 11/13 3:05pm Total Protein 7.9 g/dL 6.5-8.1 11/13/2017 2:40pm 11/13/2017 3:05pm Albumin 4.3 g/dL 3.5-5.0 11/13/2017 2:40pm 11/13/2017 3:05pm Globulin 3.6 g/dL H 2.3-3.5 11/13/2017 2:40pm 11/13/2017 3:05pm Albumin/Globulin Ratio 1.2 0.8-2.0 11/13/2017 2:40pm 11/13/2017 3: 05pm Alkaline Phosphatase 106 IU/L 40-150 11/13/2017 2:40pm 11/13/2017 3: 05pm B-Type Natriuretic Peptide 601.0 pg/mL H 0-100 11/13/2017 2:40pm 2017 3:13pm Creatine Kinase 41 IU/L 30-200 11/14/2017 10:02am 11/14/2017 10:55am Creatine Kinase MB 1.40 ng/mL 0.00-5.00 11/14/2017 10:02am 11/14/2017 10:55am Troponin I 0.063 ng/mL 0-0.300 11/14/2017 10:02am 11/14/2017 10:55am Thyroid Stimulating Hormone (TSH) 1.444 uIU/mL 0.350-4.940 11/15/2017 8: 35am 11/15/2017 9:38am Procedures Procedure Status Date Provider(s) EGD BIOPSY SINGLE/MULTIPLE Completed 02/21/17 TOM CASTRO MD DILATE ESOPHAGUS 1/MULT PASS Completed 02/21/17 TOM CASTRO MD PERFORMANCE OF URINARY FILTRATION, <6 HRS/DAY Completed 10/31/17 TONE MATAMOROS MD INSERT PACE. DUAL ISABELA IN CHEST SUBCU/FASCIA, OPEN Completed 11/04/17 RANDY MATHIS MD INSERTION OF PACEMAKER LEAD INTO R VENTRICLE, PERC APPROACH Completed RANDY MATHIS MD MEASURE OF CARDIAC SAMPL & PRESSURE, L HEART, PERC APPROACH Completed ERICA IBRAHIM MD FLUOROSCOPY OF MULT COR ART USING L OSM CONTRAST Completed 11/03/17 ERICA IBRAHIM MD FLUOROSCOPY OF LEFT HEART USING LOW OSMOLAR CONTRAST Completed 11/03/17 ERICA IBRAHIM MD INSERTION OF PACEMAKER LEAD INTO RIGHT ATRIUM, PERC APPROACH Completed RANDY MATHIS MD DILATION OF ESOPHAGOGASTRIC JUNCTION, ENDO Completed 11/05/17 TOM CASTRO MD EXCISION OF STOMACH, ENDO, DIAGN Completed 11/05/[address] of abdomen and pelvis without contrast Active 07/07/17 HENRIQUE LANDRY MD X-ray of chest, two views Active 10/31/17 CONCEPCION HERNANDEZ NP Computed tomography of abdomen without contrast Active 10/31/17 CONCEPCION HERNANDEZ NP Computed tomography of brain without radiopaque contrast Active 11/13/[address] of abdomen and pelvis without contrast Active 11/13/17 CAROL WAKEFIELD MD Encounters Encounter Location Arrival/Admit Date Discharge/Depart Date Attending Provider Discharged Inpatient (obs[facility] 11/13/17 9:08pm 12/28 10:05pm ALONZO PIÑA MD Discharged Inpatient [facility] 10/31/17 9:07pm 11/07/17 2:27pm ALONZO PIÑA MD Departed Emergency Room [facility] 07/07/17 8:28am 2:47pm HENRIQUE LANDRY MD Registered Surgical Day Care [facility] 02/21/17 8:56am TOM CASTRO MD
[2017-12-05] MEDS ORDERED: HYDRALAZINE HCL 20 MG/ML VIAL IV STA (16:38)
--- NOTE | 2017-12-05 17:31 | Diagnostic Imaging Report ---
PROCEDURE: A single AP view of the chest. COMPARISON: 11/13/17 INDICATIONS: CHEST PAIN, EPIGASTRIC PAIN FINDINGS: Lines/tubes: Stable right chest wall dual-lead cardiac device in place. Lungs: The lungs are well inflated. Mild central vascular congestion. Pleura: There is no pneumothorax. Small left pleural effusion. Heart and mediastinum: The cardiac silhouette is borderline in size. Unchanged left subclavian and brachiocephalic vein stent in place. Bones: No acute bony abnormality. IMPRESSION: Mild central vascular congestion. Small left pleural effusion. Dictated by: Hector Mahoney M.D. on 12/05/2017 at 17:30 Electronically approved by: Hector Mahoney M.D. on 12/05/2017 at 17:30
[2017-12-05] MEDS ORDERED: HYDRALAZINE HCL 20 MG/ML VIAL IV ONE ×2 (18:15→19:00)
[2017-12-05 18:50] LABS: BASOPHILS % 1.7 % (0.0-1.0); EOSINOPHILS # (AUTO) 0.1 (0.0-0.4); EOSINOPHILS % 2.1 % (0.0-6.0); HEMATOCRIT 31.9 % (38.2-49.6); HEMOGLOBIN 10.7 g/dL (14.0-18.0); LYMPHOCYTES # (AUTO) 0.5 (1.0-3.2); LYMPHOCYTES % 21.6 % (18.0-39.1); MEAN CORPUSCULAR HEMOGLOBIN 31.2 pg (28-32); MEAN CORPUSCULAR HGB CONC 33.5 g/dL (31-35); MONOCYTES # (AUTO) 0.2 (0.2-0.8); MONOCYTES % 10.2 % (4.4-11.3); NEUTROPHILS # (AUTO) 1.5 (2.1-6.9); NEUTROPHILS % 64.4 % (38.7-80.0); PLATELET COUNT 81 x10e3/uL (140-360); RED BLOOD COUNT 3.43 x10e6/uL (4.3-5.7); RED CELL DISTRIBUTION WIDTH 14.1 % (11.7-14.4)
[2017-12-05 19:02] LABS: INR 1.62; PROTHROMBIN TIME 18.1 seconds (11.9-14.5)
[2017-12-05 19:09] LABS: ALBUMIN 3.6 g/dL (3.5-5.0); ALBUMIN/GLOBULIN RATIO 1.2 (0.8-2.0); ANION GAP 16.8 mmol/L (8-16); CALCIUM 8.8 mg/dL (8.4-10.2); CREATININE, SERUM 3.74 mg/dL (0.72-1.25)
[2017-12-05 19:13] LABS: POTASSIUM 2.8 mmol/L (3.5-5.1)
[2017-12-05 19:16] LABS: CREATINE KINASE MB 1.8 ng/mL (0-5.0)
[2017-12-05] MEDS ORDERED: LISINOPRIL10 MG PO (19:26)
[2017-12-05] MEDS ORDERED: PANTOPRAZOLE SO40 MG PO (19:26)
[2017-12-05] MEDS ORDERED: POTASSIUM CHLORIDE 20 MEQ TAB CR PO STA (19:28)
[2017-12-05] MEDS ORDERED: PANTOPRAZOLE 40 MG 10ML VIAL IV STA (20:14)
[2017-12-05] MEDS ORDERED: MORPHINE SULFATE 2 MG/ML SYR IV STA (20:14)
[2017-12-05] MEDS ORDERED: ONDANSETRON HCL INJ 2 MG/ML VIAL IV STA (20:14)
[2017-12-05] MEDS ORDERED: DIATRIZOATE MEGL/DIATRIZOA SOD 30 ML BTL PO ONE (20:25)
[2017-12-05 20:43] LABS: AMYLASE 39 U/L (25-125)
[2017-12-05 20:45] LABS: LIPASE < 4 U/L (8-78)
--- NOTE | 2017-12-05 23:33 | Diagnostic Imaging Report ---
EXAM: CT Abdomen and Pelvis WITHOUT contrast INDICATION: Abdominal pain, left lower quadrant COMPARISON: None. TECHNIQUE: Abdomen and pelvis were scanned utilizing a multidetector helical scanner from the lung base to the pubic symphysis without administration of IV contrast. Absence of intravenous contrast decreases sensitivity for detection of focal lesions and vascular pathology. Coronal and sagittal reformations were obtained. Routine protocol was performed. IV CONTRAST: None. ORAL CONTRAST: Gastrografin RADIATION DOSE: Total DLP: 168.44 mGy*cm Estimated effective dose: (DLP x 0.015 x size factor) mSv COMPLICATIONS: None FINDINGS: LINES and TUBES: Pacemaker partially visualized with tips overlying the right atrium and right ventricle LOWER THORAX: Coronary artery calcifications noted. Bilateral pleural effusions and bibasilar atelectasis. HEPATOBILIARY: No focal hepatic lesions. No biliary ductal dilation. GALLBLADDER: There are cholecystectomy clips. SPLEEN: No splenomegaly. PANCREAS: No focal masses or ductal dilatation. ADRENALS: No adrenal nodules KIDNEYS/URETERS: No hydronephrosis. No cystic or solid mass lesions. No stones. The kidneys appear atrophic compatible with chronic renal disease GI TRACT: No abnormal distention, wall thickening, or evidence of bowel obstruction. Appendix is not clearly identified. There is however no fat stranding or adenopathy in the right lower quadrant to suggest appendicitis. PELVIC ORGANS/BLADDER: Unremarkable. LYMPH NODES: No lymphadenopathy. VESSELS: There is moderate atherosclerotic disease in the aorta and major arterial branches. PERITONEUM / RETROPERITONEUM: Soft tissue density adjacent to surgical clips anterior to the left psoas muscle and lateral to the left external iliac artery is indeterminate but stable when compared with study in December 2015. BONES: There are degenerative changes in the lumbar spine. SOFT TISSUES: Unremarkable. IMPRESSION: 1. No evidence of acute intra-abdominal or pelvic abnormality. 2. Findings compatible with chronic medical renal disease with resulting bilateral pleural effusions. 3. Coronary artery disease. Signed by: Dr. Lloyd Javier M.D. on 12/05/2017 10:18 PM
== END 2017-12-06 00:20 | disposition home or self-care (01) ==
LOC: ER 15:55
DX: R10.12 Left upper quadrant pain (principal); R11.2 Nausea with vomiting, unspecified; R19.7 Diarrhea, unspecified; E87.6 Hypokalemia; I12.0 Hypertensive chronic kidney disease with stage 5 chronic kidney disease or end stage renal disease; N18.6 End stage renal disease; Z99.2 Dependence on renal dialysis
CPT/HCPCS: 36415; 71045; 74176; 80053; 82150; 82550; 82553; 83690; 83735; 83880; 84484; 85025; 85610; 85730; 93005; 99284; J0360; J2270; J2405

== ENCOUNTER 2018-02-02 23:36 | Inpatient (IN) | payer MEDICARE ==
[~2018-02-02] VITALS: Ht 157.5 cm; Wt 78.0 kg
[~2018-02-02 23:36] MED LIST changes: +LISINOPRIL10 MG PO; +PANTOPRAZOLE SO40 MG PO
--- OUTSIDE RECORDS SUMMARY | 2018-02-02 23:39 | XMS REPORT | Continuity of Care Document ---
Author Author [facility] Organization [facility] Address [address] [place] [address] Phone Unavailable Care Team Providers Care Lyft Driver Name Role Phone ENID STEVENSON MD PCP Insurance Providers Guarantor Manav Valenzuela Address [address] [place] [address] Email [email or web address] Payer [facility] Policy Number [id number] Subscriber's Name Manav Valenzuela Relationship 18 Self / Same As Patient Group Name RETIRED Effective Date 14 Payer Medicare A & B Policy Number [id number] Subscriber's Name Manav Valenzuela Relationship 18 Self / Same As Patient Group Name RETIRED Effective Date 09 Advance Directives Directive Response Recorded Date/Time Does the patient have an advance directive? No 11/13/17 9:55pm If yes, is advance directive on file with [facility]? No 11/13/17 9:55pm If not on file with [facility] will patient provide a copy? No 11/13/17 9:55pm Do you have a Directive to Physician? No 12/05/17 6:45pm Do you have a Medical Power of Clinical Staff Rn? No 12/05/17 6:45pm Do you have an out of hospital Do Not Resuscitate Order? No 12/05/17 6:45pm Do you have any special needs we should be aware of? No 12/05/17 6:45pm Do you have a support person here with you today? Yes 12/05/17 6:45pm Did patient receive Notice of Privacy Practices? Yes 12/05/17 6:45pm Did patient receive patient rights and responsibilities? Yes 12/05/17 6:45pm Problems Medical Problem Onset Date Status Abdominal [...] Tablet 75 Mg Oral Daily 30 Tab Donepezil Hcl (Aricept) 5 Mg Tablet 10 Mg Oral Daily 30 Tab Furosemide 20 Mg Tablet 80 Mg Oral Twice A Day Insulin Glargine (Lantus) 100 Units/Ml Ml 2 Unit Sub-Q As Needed Labetalol Hcl 100 Mg Tablet 100 Mg Oral Twice A Day 30 Days Levothyroxine Sodium 75 Mcg Tablet 75 Mcg Oral Daily 30 Tab Lisinopril 10 Mg Tablet 40 Mg Oral Daily 30 Tab Ondansetron (Zofran Odt) 4 Mg Tab.rapdis 4 Mg Oral Every 6 Hours as needed for Vomiting Pantoprazole Sodium (Protonix) 40 Mg Tablet.dr 40 Mg Oral Twice A Day Renvela 800 Mg Oral Three Times Daily [...] 30 Mg Oral Daily Discontinued Dicyclomine Hcl 10 Mg Capsule, 10 Mg Oral As Needed Discontinued Dicyclomine Hcl 20 Mg Tablet, 20 [...] Mcg Capsule, 50 Mg Oral Daily Discontinued Lisinopril (Prinavil / Zestril) 20 Mg Tablet, 30 Mg Oral Daily 11/06/17 Discontinued Megestrol Acetate 800 Mg/20ML Cup, 400 [...] No 11/13/2017 9:55pm Not Applicable Not Applicable Hospital Discharge Instructions No hospital discharge instruction information available. Plan of Care Discharge Date 12/06/17 12:20am Disposition HOME, SELF-CARE Condition at Discharge Stable Instructions/Education Provided Abdominal Pain - Adult Forms Provided Work/School Excuse Prescriptions See Medication Section Referrals ENID STEVENSON MD Address: [facility] [address] Additional Instructions/Education TYLENOL NEEDED FOR FEVER CONTROL TAKE MEDICATIONS PRESCRIBED FOLLOW-UP WITH YOUR PRIMARY CARE PROVIDER Functional Status No functional status information available. Allergies, Adverse Reactions, Alerts No known allergies. Immunizations No immunization information available. Vital Signs Acute Vital Signs Vital Response Date/Time Temperature (Fahrenheit) 97.7 degrees F (97.6 - 99.5) 11/15/2017 4:00pm Pulse Pulse Rate (adult) 59 bpm (60 - 90) 11/15/2017 4:00pm Respiratory Rate 21 bpm (12 - 24) 11/15/2017 4:00pm Blood Pressure 131/61 mm Hg 11/15/2017 4:00pm Height 5 ft 2 in 12/05/2017 4:31pm Weight 99 lb 12/05/2017 4:31pm Body Mass Index 18.1 kg/m^2 12/05/2017 4:31pm Results Laboratory Results Test Name Result Units Flags Reference Collection Date/Time Result Date/ Time Comments Triglycerides Level 112 MG/DL 0-149 11/01/2017 6:28am [...] 4.3 3.9-4.7 11/01/2017 6:28am 11/01/2017 7: 08am Arterial Blood pH 7.41 7.31-7.41 11/03/2017 10:30am [...] 11/01/2017 6:28am 11/02/2017 2:27pm Performed at: - [facility] [id number] Permastone Mechanic: Alejandro Boateng MD, Phone: [phone] Hepatitis B Surface Antigen Negative Negative 11/01/2017 6:28am 11/02 2:27pm Bedside Glucose 102 mg/dL 70-120 11/15/2017 7:54pm 11/16/2017 1:15am Meter ID: [id number] Phosphorus Level 4.1 MG/DL 2.3-4.7 11/15/2017 8:35am 11/15/2017 9:18am Iron Level 44 ug/dL L 65-175 11/15/2017 8:35am 11/15/2017 9:18am Total Iron Binding Capacity 154 ug/dL L 261-478 11/15/2017 8:35am 2017 9:18am Percent Iron Saturation 29 % 15-50 11/15/2017 8:35am 11/15/2017 9:18am Transferrin 110 mg/dL L 174-364 11/15/2017 8:35am 11/15/2017 9:18am Thyroid Stimulating Hormone (TSH) 1.444 uIU/mL 0.350-4.940 11/15/2017 8: 35am 11/15/2017 9:38am White Blood Count 2.36 x10e3/uL L 4.8-10.8 12/05/2017 6:05pm 12/05/2017 7:02pm Red Blood Count 3.43 x10e6/uL L 4.3-5.7 12/05/2017 6:05pm 12/05/2017 7: 02pm Hemoglobin 10.7 g/dL L 14.0-18.0 12/05/2017 6:05pm 12/05/2017 7:02pm Hematocrit 31.9 % L 38.2-49.6 12/05/2017 6:05pm 12/05/2017 7:02pm Mean Corpuscular Volume 93.0 fL 81-99 12/05/2017 6:05pm 12/05/2017 7: 02pm Mean Corpuscular Hemoglobin 31.2 pg 28-32 12/05/2017 6:05pm 12/05/2017 7:02pm Mean Corpuscular Hemoglobin Concent 33.5 g/dL 31-35 12/05/2017 6:05pm 12/05/2017 7:02pm Red Cell Distribution Width 14.1 % 11.7-14.4 12/05/2017 6:05pm 2017 7:02pm Platelet Count 81 x10e3/uL L 140-360 12/05/2017 6:05pm 12/05/2017 7: 02pm Neutrophils (%) (Auto) 64.4 % 38.7-80.0 12/05/2017 6:05pm 12/05/2017 7: 02pm Lymphocytes (%) (Auto) 21.6 % 18.0-39.1 12/05/2017 6:05pm 12/05/2017 7: 02pm Monocytes (%) (Auto) 10.2 % 4.4-11.3 12/05/2017 6:05pm 12/05/2017 7: 02pm Eosinophils (%) (Auto) 2.1 % 0.0-6.0 12/05/2017 6:05pm 12/05/2017 7: 02pm Basophils (%) (Auto) 1.7 % H 0.0-1.0 12/05/2017 6:05pm 12/05/2017 7: 02pm IM GRANULOCYTES % 0.0 % 0.0-1.0 12/05/2017 6:05pm 12/05/2017 7:02pm Neutrophils # (Auto) 1.5 L 2.1-6.9 12/05/2017 6:05pm 12/05/2017 7: 02pm Lymphocytes # (Auto) 0.5 L 1.0-3.2 12/05/2017 6:05pm 12/05/2017 7: 02pm Monocytes # (Auto) 0.2 0.2-0.8 12/05/2017 6:05pm 12/05/2017 7:02pm Eosinophils # (Auto) 0.1 0.0-0.4 12/05/2017 6:05pm 12/05/2017 7:02pm Basophils # (Auto) 0.0 0.0-0.1 12/05/2017 6:05pm 12/05/2017 7:02pm Absolute Immature Granulocyte (auto 0 x10e3/uL 0-0.1 12/05/2017 6:05pm 12/05/2017 7:02pm Prothrombin Time 18.1 seconds H 11.9-14.5 12/05/2017 6:05pm 12/05/2017 7 :04pm Prothromb Time International Ratio 1.62 12/05/2017 6:05pm 2017 7:04pm Oral Anticoagulant Therapy INR Values: 1. Low Intensity Therapy 1.5 - 2.0 2. Moderate Intensity Therapy 2.0 - 3.0 3. High Intensity Therapy(1) 2.5 - 3.5 4. High Intensity Therapy(2) 3.0 - 4.0 5. Panic Value INR > 5.0 Activated Partial Thromboplast Time 40.0 seconds H 23.8-35.5 12/05/2017 6 :05pm 12/05/2017 7:04pm Sodium Level 136 mmol/L 136-145 12/05/2017 6:05pm 12/05/2017 7:13pm Potassium Level 2.8 mmol/L *L 3.5-5.1 12/05/2017 6:05pm 12/05/2017 7: 13pm Results called to KAREY ROBERTS LVN at 1911 on 12/05/17 by Hakeem Kern. RB OK. Chloride Level 95 mmol/L L 98-107 12/05/2017 6:05pm 12/05/2017 7:13pm Carbon Dioxide Level 27 mmol/L 22-29 12/05/2017 6:05pm 12/05/2017 7: 13pm Anion Gap 16.8 mmol/L H 8-16 12/05/2017 6:05pm 12/05/2017 7:13pm Blood Urea Nitrogen 6 mg/dL L 7-12/05/2017 6:05pm 12/05/2017 7:13pm Creatinine 3.74 mg/dL H 0.72-1.25 12/05/2017 6:05pm 12/05/2017 7:13pm BUN/Creatinine Ratio 2 L 6-12/05/2017 6:05pm 12/05/2017 7:13pm Estimat Glomerular Filtration Rate 16 ML/MIN L 60- 12/05/2017 6:05pm 7:13pm Ranges were taken from the National Kidney Disease Education Program and the National Kidney Foundation literature. Reference ranges: 60 or greater: Normal 16-59 (for 3 consecutive months): Chronic kidney disease 15 or less: Kidney failure Glucose Level 95 mg/dL 74-118 12/05/2017 6:05pm 12/05/2017 7:13pm Calcium Level 8.8 mg/dL 8.4-10.2 12/05/2017 6:05pm 12/05/2017 7:13pm Magnesium Level 1.7 MG/DL 1.3-2.1 12/05/2017 6:05pm 12/05/2017 7:50pm Total Bilirubin 0.8 mg/dL 0.2-1.2 12/05/2017 6:05pm 12/05/2017 7:13pm Aspartate Amino Transf (AST/SGOT) 22 IU/L 5-34 12/05/2017 6:05pm 2017 7:13pm Alanine Aminotransferase (ALT/SGPT) 6 IU/L 0-55 12/05/2017 6:05pm 12/05 7:13pm Total Protein 6.6 g/dL 6.5-8.1 12/05/2017 6:05pm 12/05/2017 7:13pm Albumin 3.6 g/dL 3.5-5.0 12/05/2017 6:05pm 12/05/2017 7:13pm Globulin 3.0 g/dL 2.3-3.5 12/05/2017 6:05pm 12/05/2017 7:13pm Albumin/Globulin Ratio 1.2 0.8-2.0 12/05/2017 6:05pm 12/05/2017 7: 13pm Alkaline Phosphatase 79 IU/L 40-150 12/05/2017 6:05pm 12/05/2017 7: 13pm B-Type Natriuretic Peptide 3400.7 pg/mL H 0-100 12/05/2017 6:05pm 2017 7:20pm Creatine Kinase 90 IU/L 30-200 12/05/2017 6:05pm 12/05/2017 7:13pm Creatine Kinase MB 1.80 ng/mL 0-5.0 12/05/2017 6:05pm 12/05/2017 7: 20pm Troponin I 0.062 ng/mL 0-0.300 12/05/2017 6:05pm 12/05/2017 7:20pm Amylase Level 39 U/L 25-125 12/05/2017 6:05pm 12/05/2017 8:45pm Lipase < 4 U/L L 8-78 12/05/2017 6:05pm 12/05/2017 8:45pm Procedures Procedure Status Date Provider(s) EGD BIOPSY [...] X-ray of chest, two views Active 10/31/17 Herve'CONCEPCION ANAND NP Computed tomography of abdomen without contrast Active 10/31/17 Herve'CONCEPCION ANAND NP Computed tomography of brain without radiopaque contrast Active 11/13/[address] of abdomen and pelvis without contrast Active 11/13/17 CAROL WAKEFIELD MD X-ray of chest, single view Active 12/05/[address] of abdomen and pelvis without contrast Active 12/05/17 PATEL MATTHEWS NP Encounters Encounter Location Arrival/Admit Date Discharge/Depart Date Attending Provider [facility] 12/05/17 3:55pm 12:20am ANDRZEJ OBRIEN MD Discharged [facility]patient (obs[facility] 11/13/17 9:08pm 12/28 10:05pm ALONZO PIÑA MD Discharged Inpatient [facility] 10/31/17 9:07pm 11/07/17 2:27pm ALONZO PIÑA MD Departed Emergency Room [facility] 07/07/17 8:28am 2:47pm HENRIQUE LANDRY MD Registered Surgical Day Care [facility] 02/21/17 8:56am TOM CASTRO MD
[2018-02-02] MEDS ORDERED: ALBUTEROL SULF 0.083% NEB SOLN 3 ML NEB ONE (23:49)
[2018-02-02] MEDS ORDERED: IPRATROPIUM BROMIDE 0.02% 2.5 ML NEB ONE (23:50)
[2018-02-03] MEDS ORDERED: NITROGLYCERIN 2% OINT 1 GM PKT TOP ONE
[2018-02-03] MEDS ORDERED: FUROSEMIDE INJ 10 MG/ML 10 ML VIAL IV ONE
[2018-02-03 00:12] LABS: BASOPHILS # (AUTO) 0.1 (0.0-0.1); EOSINOPHILS # (AUTO) 0.1 (0.0-0.4); EOSINOPHILS % 1.8 % (0.0-6.0); HEMATOCRIT 36.1 % (38.2-49.6); HEMOGLOBIN 12.1 g/dL (14.0-18.0); LYMPHOCYTES # (AUTO) 0.7 (1.0-3.2); LYMPHOCYTES % 9.8 % (18.0-39.1); MEAN CORPUSCULAR HEMOGLOBIN 30.9 pg (28-32); MEAN CORPUSCULAR HGB CONC 33.5 g/dL (31-35); MEAN CORPUSCULAR VOLUME 92.1 fL (81-99); MONOCYTES # (AUTO) 0.6 (0.2-0.8); MONOCYTES % 7.8 % (4.4-11.3); NEUTROPHILS # (AUTO) 5.6 (2.1-6.9); NEUTROPHILS % 79.2 % (38.7-80.0); PLATELET COUNT 134 x10e3/uL (140-360); RED BLOOD COUNT 3.92 x10e6/uL (4.3-5.7); RED CELL DISTRIBUTION WIDTH 15.3 % (11.7-14.4)
[2018-02-03 00:22] LABS: INR 1.15; PROTHROMBIN TIME 13.8 seconds (11.9-14.5)
[2018-02-03 00:23] LABS: PARTIAL THROMBOPLASTIN TIME 32.3 seconds (23.8-35.5)
[2018-02-03 00:38] LABS: ABG PH 7.49 (7.31-7.41)
[2018-02-03 00:39] LABS: ABG HCO3 29 mmol/L (23-28); ABG PCO2 38 mmHg (41-51); ABG PO2 66 mmHg (80-105)
--- NOTE | 2018-02-03 00:44 | Diagnostic Imaging Report ---
EXAMINATION: CHEST SINGLE (PORTABLE) INDICATION: End-stage renal disease on hemodialysis, shortness of breath COMPARISON: 12/05/2017 FINDINGS: TUBES and LINES: The pacemaker is intact. LUNGS: Lungs are not well inflated. There are bibasilar atelectasis. There is perihilar interstitial opacities, consistent with interstitial edema. PLEURA: Small bilateral pleural effusions HEART AND MEDIASTINUM: Cardiac size is mildly enlarged. There are atherosclerotic calcifications within the aorta. Vascular stent noted in the distribution of the left innominate/subclavian vessels BONES AND SOFT TISSUES: No acute osseous lesion. Soft tissues are unremarkable. UPPER ABDOMEN: No free air under the diaphragm. IMPRESSION: 1. Findings are compatible with pulmonary edema and bilateral pleural effusions. 2. Underlying superimposed infection cannot be excluded. Signed by: Dr. Lloyd Javier M.D. on 02/03/2018 12:40 AM
[2018-02-03 00:47] LABS: B-TYPE NATRIURETIC PEPTIDE2 1741.1 pg/mL (0-100)
[2018-02-03 03:35] LABS: ALBUMIN 3.3 g/dL (3.5-5.0); ALBUMIN/GLOBULIN RATIO 1.1 (0.8-2.0); ALKALINE PHOSPHATASE 102 IU/L (40-150); ANION GAP 17.8 mmol/L (8-16); BLOOD UREA NITROGEN 46 mg/dL (7-26); BUN/CREATININE RATIO 8 (6-25); CALCIUM 9.6 mg/dL (8.4-10.2); CARBON DIOXIDE 26 mmol/L (22-29); CHLORIDE 98 mmol/L (98-107); CREATINE KINASE 87 IU/L (30-200); CREATININE, SERUM 5.75 mg/dL (0.72-1.25); EST GLOMERULAR FILTRATION RATE 10 ML/MIN (60-); GLUCOSE 120 mg/dL (74-118); MAGNESIUM 2.1 MG/DL (1.3-2.1); POTASSIUM 5.8 mmol/L (3.5-5.1); SODIUM 136 mmol/L (136-145)
[2018-02-03 03:36] LABS: ALANINE AMINOTRANSFERASE < 6 IU/L (0-55)
[2018-02-03] MEDS ORDERED: MORPHINE SULFATE 2 MG/ML SYR IV PRN (06:15)
[2018-02-03] MEDS ORDERED: ALBUTEROL SULF 0.083% NEB SOLN 3 ML NEB NEB PRN (06:15)
[2018-02-03] MEDS ORDERED: IPRATROPIUM BROMIDE 0.02% 2.5 ML NEB NEB PRN (06:15)
[2018-02-03] MEDS ORDERED: ALBUTEROL/IPRATROPIUM 3 ML NEB INH PRN (06:30)
--- NOTE | 2018-02-03 11:08 | Consultation ---
DATE OF CONSULTATION: February 03, 2018 HISTORY OF PRESENT ILLNESS: This is a 67-year-old gentleman who was scheduled for dialysis today at his unit but presented to the hospital with shortness of breath. He has a dry cough. Denies fever or chills. Currently lying supine on oxygen. He was kept in the hospital for telemetry monitoring and dialysis. Renal consulted for management of kidney failure. by bedside. Chest x-ray shows, of course, presence of AICD, pulmonary edema and possible underlying cardiomegaly, difficult to ascertain given the degree of pulmonary edema. White count 7. Hemoglobin 12.1 with a potassium 5.8. BUN 46. Creatinine 5.7. SOCIAL HISTORY: Does not smoke or drink. ALLERGIES: NO APPARENT DRUG ALLERGIES. CURRENT MEDICATIONS: Please see MAR for details. She is on albuterol. Received 1 dose of IV nitroglycerin ointment and ondansetron p.r.n. FAMILY HISTORY: Significant for hypertension. PAST MEDICAL HISTORY: Significant for multiple comorbids including coronary artery disease, arrhythmia, AICD placement, end-stage renal disease, anemia. PHYSICAL EXAMINATION GENERAL: Awake, alert, sitting up in no apparent distress. VITALS: Blood pressure 135/59, pulse rate 65, afebrile. Oxygen saturation 94% on room air. HEAD AND NECK: Corneas are clear. Oral mucosa is dry. LUNGS: Bibasilar rales. HEART: S1, S2 audible. Questionable S3 gallop. ABDOMEN: Otherwise soft and nontender. LOWER EXTREMITIES: No edema. IMPRESSION AND PLAN 1. Fluid overload. 2. Congestive heart failure. 3. Pulmonary edema. 4. End-stage renal disease. 5. Hyperkalemia. Plan on urgent hemodialysis. Fluid restriction. Appropriate diet. Renal dosing of medications. Please see orders. Job#: [id number]
[2018-02-03] MEDS: NITROGLYCERIN 2% OINT 1 GM PKT TOP SCH ×2 (12:00→18:44)
[2018-02-03 13:13] LABS: BASOPHILS # (AUTO) 0.1 (0.0-0.1); BASOPHILS % 1.2 % (0.0-1.0); EOSINOPHILS # (AUTO) 0.1 (0.0-0.4); EOSINOPHILS % 1.3 % (0.0-6.0); HEMOGLOBIN 12.4 g/dL (14.0-18.0); LYMPHOCYTES # (AUTO) 0.6 (1.0-3.2); LYMPHOCYTES % 9.6 % (18.0-39.1); MEAN CORPUSCULAR HEMOGLOBIN 30.8 pg (28-32); MEAN CORPUSCULAR HGB CONC 33.5 g/dL (31-35); MONOCYTES # (AUTO) 0.5 (0.2-0.8); MONOCYTES % 7.6 % (4.4-11.3); NEUTROPHILS # (AUTO) 4.8 (2.1-6.9); NEUTROPHILS % 79.6 % (38.7-80.0); PLATELET COUNT 136 x10e3/uL (140-360); RED BLOOD COUNT 4.02 x10e6/uL (4.3-5.7); RED CELL DISTRIBUTION WIDTH 14.6 % (11.7-14.4)
[2018-02-03] MEDS ORDERED: ACETAMINOPHEN 325 MG TAB PO PRN (13:45)
[2018-02-03] MEDS ORDERED: SODIUM CHLORIDE 0.9% 1000ML 2,000 ML IV PRN (14:15)
[2018-02-03 14:29] VITALS: BP 221/92
[2018-02-03 14:41] VITALS: BP 221/92
[2018-02-03] MEDS ORDERED: ACETAMINOPHEN/CODEINE 300MG - 30MG TAB PO PRN (14:45)
[2018-02-03] MEDS ORDERED: LORAZEPAM 0.5 MG TAB PO PRN (14:45)
[2018-02-03 16:41] VITALS: BP 217/96
[2018-02-03] MEDS ORDERED: RENVELA 800 MG PO SCH (17:00)
[2018-02-03] MEDS: FAMOTIDINE 20 MG TAB PO SCH (18:42)
[2018-02-03] MEDS: SEVELAMER CARBONATE 800 MG TAB PO SCH (18:42)
[2018-02-03] MEDS: FUROSEMIDE 20 MG TAB PO SCH (18:42)
[2018-02-03] MEDS: LABETALOL HCL 100 MG TAB PO SCH (18:44)
[2018-02-03 19:45] LABS: CREATINE KINASE MB 2.8 ng/mL (0-5.0)
[2018-02-03] MEDS: HYDRALAZINE HCL 20 MG/ML VIAL IV PRN (20:51)
[2018-02-03] MEDS: CINACALCET 30 MG TAB PO SCH (20:51)
[2018-02-03] MEDS ORDERED: TRAZODONE HCL 50 MG TAB PO SCH (21:00)
[2018-02-03] MEDS ORDERED: NON-FORMULARY MEDICATION (Trazodone Hcl 100 MG) PO SCH (21:00)
[2018-02-03] MEDS ORDERED: TRAZODONE HCL 50 MG TAB PO PRN (21:00)
[2018-02-04] VITALS (7 sets, daily range): BP systolic 99–190; BP diastolic 54–83
[2018-02-04] MEDS: HYDRALAZINE HCL 20 MG/ML VIAL IV PRN ×4 (00:35→20:44)
[2018-02-04] MEDS: NITROGLYCERIN 2% OINT 1 GM PKT TOP SCH ×4 (00:35→17:36)
[2018-02-04] MEDS: LEVOTHYROXINE SODIUM 75 MCG TAB PO SCH (05:59)
[2018-02-04 06:35] LABS: BASOPHILS # (AUTO) 0.1 (0.0-0.1); BASOPHILS % 1.4 % (0.0-1.0); EOSINOPHILS % 0.7 % (0.0-6.0); HEMATOCRIT 33.3 % (38.2-49.6); HEMOGLOBIN 11.3 g/dL (14.0-18.0); LYMPHOCYTES # (AUTO) 0.7 (1.0-3.2); LYMPHOCYTES % 15.4 % (18.0-39.1); MEAN CORPUSCULAR HGB CONC 33.9 g/dL (31-35); MEAN CORPUSCULAR VOLUME 91.2 fL (81-99); MONOCYTES # (AUTO) 0.5 (0.2-0.8); MONOCYTES % 11.2 % (4.4-11.3); NEUTROPHILS % 71.1 % (38.7-80.0); PLATELET COUNT 120 x10e3/uL (140-360); RED BLOOD COUNT 3.65 x10e6/uL (4.3-5.7); RED CELL DISTRIBUTION WIDTH 14.8 % (11.7-14.4)
[2018-02-04 07:00] LABS: ANION GAP 14.5 mmol/L (8-16); CALCIUM 8.9 mg/dL (8.4-10.2); CHOL/HDL RATIO 2.4 (3.9-4.7); CREATININE, SERUM 4.26 mg/dL (0.72-1.25); MAGNESIUM 1.9 MG/DL (1.3-2.1); POTASSIUM 4.5 mmol/L (3.5-5.1)
--- NOTE | 2018-02-04 07:01 | Diagnostic Imaging Report ---
EXAMINATION: CHEST SINGLE (PORTABLE) INDICATION: Fluid overload, follow-up COMPARISON: 02/03/2018 FINDINGS: TUBES and LINES: The pacemaker is intact. LUNGS: Lungs are not well inflated. There are bibasilar atelectasis. There is persistent, perihilar interstitial opacities, consistent with interstitial edema. PLEURA: Small bilateral pleural effusions are stable HEART AND MEDIASTINUM: Cardiac size is mildly enlarged. There are atherosclerotic calcifications within the aorta. BONES AND SOFT TISSUES: No acute osseous lesion. Soft tissues are unremarkable. UPPER ABDOMEN: No free air under the diaphragm. IMPRESSION: Overall stable central vascular congestion, edema and bilateral pleural effusions. Signed by: Dr. Lloyd Javier M.D. on 02/04/2018 6:58 AM
[2018-02-04 07:11] LABS: FREE T4 (FREE THYROXINE) 1.21 ng/dL (0.9-1.8); THYROID STIMULATING HORMONE 5.447 uIU/mL (0.350-4.940)
[2018-02-04] MEDS: FAMOTIDINE 20 MG TAB PO SCH ×2 (07:30→16:30)
[2018-02-04] MEDS: SEVELAMER CARBONATE 800 MG TAB PO SCH ×3 (08:00→17:00)
[2018-02-04] MEDS: DONEPEZIL HCL 5 MG TAB PO SCH (08:53)
[2018-02-04] MEDS: FUROSEMIDE 20 MG TAB PO SCH ×2 (08:53→17:00)
[2018-02-04] MEDS: CLOPIDOGREL BISULFATE 75 MG TAB PO SCH (08:53)
[2018-02-04] MEDS: LABETALOL HCL 100 MG TAB PO SCH ×2 (08:54→17:00)
[2018-02-04] MEDS: LISINOPRIL 20 MG TAB PO SCH (08:54)
[2018-02-04] MEDS ORDERED: LEVOTHYROXINE SODIUM 75 MCG TAB PO SCH (09:00)
[2018-02-04] MEDS ORDERED: AMIODARONE HCL 200 MG TAB PO SCH (09:00)
[2018-02-04] MEDS ORDERED: LISINOPRIL 10 MG TAB PO SCH (09:00)
[2018-02-04] MEDS ORDERED: LOPERAMIDE HCL 2 MG CAP PO PRN (09:30)
[2018-02-04] MEDS: ONDANSETRON HCL 4 MG ORAL DISINTEGRATING TAB PO PRN (09:50)
[2018-02-04] MEDS: METOCLOPRAMIDE HCL 10 MG/2ML VIAL IV SCH ×3 (11:30→20:43)
[2018-02-04] MEDS ORDERED: FUROSEMIDE INJ 10 MG/ML 4 ML VIAL IV ONE (11:30)
--- NOTE | 2018-02-04 13:15 | Consultation ---
DATE OF CONSULTATION: February 03, 2018 CARDIAC CONSULTATION REASON FOR CONSULTATION: Respiratory distress, volume overload in patient on dialysis with severe hypertension and coronary artery disease. HISTORY: This is a 67-year-old gentleman with known hypertension, hypercholesterolemia, coronary artery disease, status post prior PCI of the right and left anterior descending coronary artery. The patient is also known to have end-stage renal disease on hemodialysis Friday, and Friday. He had prior history of myocardial infarction and CVA. Patient had permanent pacemaker implantation in October for intermittent heart block. The patient came to this institution because he started having severe shortness of breath. Blood pressure was severely uncontrolled. Admitted and started on hemodialysis and cardiac consultation is obtained. Surprisingly there is no history of syncope or presyncope or any postural hypotension-like symptoms. There is no chest pain. It seems his problem was progressively getting worse with more uncontrolled blood pressure and more volume overload. He seems to be comfortable after his hemodialysis. PAST MEDICAL HISTORY: 1. Hypertension. 2. Hypercholesterolemia. 3. Calcified coronary artery disease, status post prior PCI to the LAD in 2008 and to the right coronary artery. 4. History of CVA in 1998. 5. Peripheral arterial vascular disease. 6. End-stage renal disease on hemodialysis Friday, and Friday. 7. Left arm AV fistula. 8. Diabetes mellitus and end-organ damage. 9. Anxiety. 10. Pacemaker implantation for complete heart block in October 2017. 11. Prior myocardial infarction. 12. Cholecystectomy. 13. Neuropathy. 14. Prior CVAs. 15. History of atrial arrhythmia. Was on anticoagulation, but it needed to be stopped because of bleeding "after hemodialysis", and the patient and his opted not to get anticoagulation. FAMILY HISTORY: Father of colon cancer at age 55. Mother is diabetic, hypertensive and several brothers and sisters with coronary artery disease. SOCIAL HISTORY: He is . He stopped smoking. He does not drink alcohol. ALLERGIES: NONE. HOME MEDICATIONS: Amiodarone 200 mg a day. Plavix 75 mg a day. Lasix 80 mg twice a day. Labetalol 100 mg twice a day. Lisinopril 40 mg a day. Synthroid 75 mcg a day. Nifedipine 60 mg twice a day. Renagel 800 mg t.i.d. Dicyclomine. Aricept. Lantus insulin and other p.r.n. medications. REVIEW OF SYSTEMS: GENERAL: Chronically ill, failure to thrive. HEENT: Occasional headache. PULMONARY AND CARDIAC: Shortness of breath on exertion. No angina. No syncope as per acute illness. GI: Bloating, indigestion, poor appetite, difficulty swallowing. : Barely making urine if any. MUSCULOSKELETAL: Chronic low back pain and knee pain. HEMATOLOGICAL: Easy bruising and bleeding. INFECTIOUS DISEASE: No known fever, recently. ENDOCRINE: History of diabetes. NEUROLOGIC: Prior history of CVA, walking with cane and difficult ambulation. The remainder of review of systems negative. PHYSICAL EXAMINATION VITALS: Height of 5 feet, 3 inches, weight 140 pounds. Blood pressure. 210/110, recorded, heart rate 70. Respiratory rate of 18. GENERAL: Thin, chronically ill. HEENT: Normocephalic, atraumatic. NECK: No elevation of jugular venous pulsation and no lymphadenopathy. CHEST: Decreased air entry and decreased lung expansion. Pacemaker is noted in place. HEART: Normal 1st and 2nd heart sounds with an ejection systolic murmur over the left sternal border. ABDOMEN: Soft with good bowel sounds. EXTREMITIES: Left arm AV fistula. No right radial pulse. Decreased pulses all over. NEUROLOGIC: Left-sided body weakness and generalized weakness. LABORATORY DATA: ABG showed pH of 7.49, pCO2 38, pO2 of 66. Sodium 136. Potassium of 5.8. BUN of 46. Creatinine 5.8. BNP elevated at 1336. Cardiac enzymes are normal. PT of 13.8. PTT of 32. EKG showing nonspecific ST changes. IMPRESSION AND PLAN: 1. Volume overload. 2. Most likely diastolic dysfunction secondary to severe hypertension and end-stage renal disease. 3. End-stage renal disease on dialysis. 4. Coronary artery disease status post PCIs to left anterior descending and right coronary artery, latest cardiac catheterization in October 2017 showed complex calcified coronary. Medical therapy is recommended. 5. Debility and weakness. 6. History of stroke. 7. History of arrhythmia with tendency to bleed. Off anticoagulation, only on antiplatelet agent. Cardiac-taylor would recommend adjustment of blood pressure medications to control blood pressure. Hemodialysis as done. Continuation of Plavix. I would like to thank you for your kind referral. Job#: [id number]
[2018-02-04] MEDS: CLONIDINE HCL 0.2 MG TAB PO SCH (17:00)
--- NOTE | 2018-02-04 17:13 | Diagnostic Imaging Report ---
PROCEDURE:ABDOMINAL ULTRASOUND COMPARISON:CT abdomen and pelvis 12/05/2017. INDICATIONS:NAUSEA FINDINGS: Liver: 15.0 cm. Normal hepatic parenchymal echogenicity. No focal mass. Main portal vein: 1.1 cm. Hepatopedal flow. Gallbladder: Cholecystectomy. Common Bile Duct: 2.0 mm. No echogenic filling defect. Sonographic Love's sign: Negative. Right kidney: 8.0 cm. No solid or cystic mass, echogenic calculi, or hydronephrosis. Increased parenchymal echogenicity. Left kidney: 7.6 cm. No solid or cystic mass, echogenic calculi, or hydronephrosis. Increased parenchymal echogenicity. Spleen: 10.8 cm. No focal mass. Splenule is present. Pancreas: The visualized portions of the pancreas are normal. Inferior vena cava: Normal. Aorta: Normal. Ascites: None. Incidental note is made of small bilateral pleural effusions. CONCLUSION: 1. No acute sonographic abnormality. 2. Increased renal cortical echogenicity may represent medical renal disease. 3. Small bilateral pleural effusions. Dictated by: Matthew Rush M.D. on 02/04/2018 at 17:15 Electronically approved by: Matthew Rush M.D. on 02/04/2018 at 17:15
[2018-02-04] MEDS: CINACALCET 30 MG TAB PO SCH (20:43)
[2018-02-04] MEDS: METHYLPREDNISOLONE SOD SUCC 40 MG/ML VIAL IV SCH (20:43)
[2018-02-05] VITALS (10 sets, daily range): BP systolic 149–201; BP diastolic 58–91
[2018-02-05] MEDS: NITROGLYCERIN 2% OINT 1 GM PKT TOP SCH ×2 (00:46→05:49)
[2018-02-05] MEDS: ONDANSETRON HCL 4 MG ORAL DISINTEGRATING TAB PO PRN (00:48)
[2018-02-05] MEDS: LEVOTHYROXINE SODIUM 75 MCG TAB PO SCH (05:48)
[2018-02-05 06:35] LABS: BASOPHILS % 0.2 % (0.0-1.0); HEMATOCRIT 35.4 % (38.2-49.6); HEMOGLOBIN 11.5 g/dL (14.0-18.0); LYMPHOCYTES # (AUTO) 0.2 (1.0-3.2); LYMPHOCYTES % 5.1 % (18.0-39.1); MEAN CORPUSCULAR HEMOGLOBIN 30.8 pg (28-32); MEAN CORPUSCULAR HGB CONC 32.5 g/dL (31-35); MEAN CORPUSCULAR VOLUME 94.9 fL (81-99); MONOCYTES # (AUTO) 0.1 (0.2-0.8); MONOCYTES % 1.8 % (4.4-11.3); NEUTROPHILS # (AUTO) 4.1 (2.1-6.9); NEUTROPHILS % 92.2 % (38.7-80.0); PLATELET COUNT 117 x10e3/uL (140-360); RED BLOOD COUNT 3.73 x10e6/uL (4.3-5.7); RED CELL DISTRIBUTION WIDTH 14.7 % (11.7-14.4)
[2018-02-05 07:06] LABS: ALBUMIN 3.2 g/dL (3.5-5.0); ALBUMIN/GLOBULIN RATIO 1.1 (0.8-2.0); ALKALINE PHOSPHATASE 75 IU/L (40-150); ANION GAP 22.5 mmol/L (8-16); BLOOD UREA NITROGEN 50 mg/dL (7-26); BUN/CREATININE RATIO 9 (6-25); CALCIUM 8.1 mg/dL (8.4-10.2); CARBON DIOXIDE 21 mmol/L (22-29); CHLORIDE 98 mmol/L (98-107); CREATININE, SERUM 5.72 mg/dL (0.72-1.25); EST GLOMERULAR FILTRATION RATE 10 ML/MIN (60-); GLUCOSE 120 mg/dL (74-118); MAGNESIUM 2.1 MG/DL (1.3-2.1); POTASSIUM 5.5 mmol/L (3.5-5.1); SODIUM 136 mmol/L (136-145)
[2018-02-05 07:11] LABS: ALANINE AMINOTRANSFERASE < 6 IU/L (0-55)
[2018-02-05] MEDS: FAMOTIDINE 20 MG TAB PO SCH ×2 (07:30→16:30)
[2018-02-05] MEDS: METOCLOPRAMIDE HCL 10 MG/2ML VIAL IV SCH ×4 (07:30→20:28)
[2018-02-05] MEDS: SEVELAMER CARBONATE 800 MG TAB PO SCH ×3 (08:00→17:00)
[2018-02-05] MEDS: DONEPEZIL HCL 5 MG TAB PO SCH (09:00)
[2018-02-05] MEDS: METHYLPREDNISOLONE SOD SUCC 40 MG/ML VIAL IV SCH ×2 (09:00→20:28)
[2018-02-05] MEDS: CLOPIDOGREL BISULFATE 75 MG TAB PO SCH (09:00)
[2018-02-05] MEDS: CLONIDINE HCL 0.2 MG TAB PO SCH ×2 (09:00→17:00)
[2018-02-05] MEDS: LABETALOL HCL 100 MG TAB PO SCH ×2 (09:00→17:00)
[2018-02-05] MEDS: LISINOPRIL 20 MG TAB PO SCH (09:00)
[2018-02-05] MEDS: FUROSEMIDE 20 MG TAB PO SCH ×2 (09:00→17:00)
[2018-02-05] MEDS: HYDRALAZINE HCL 20 MG/ML VIAL IV PRN ×2 (12:18→21:30)
[2018-02-05] MEDS: CINACALCET 30 MG TAB PO SCH (20:28)
[2018-02-06] VITALS (9 sets, daily range): BP systolic 172–225; BP diastolic 67–88
[2018-02-06] MEDS: HYDRALAZINE HCL 20 MG/ML VIAL IV PRN ×3 (05:12→16:33)
[2018-02-06] MEDS: LEVOTHYROXINE SODIUM 75 MCG TAB PO SCH (05:34)
[2018-02-06 06:58] LABS: BASOPHILS % 0.2 % (0.0-1.0); HEMATOCRIT 35.1 % (38.2-49.6); HEMOGLOBIN 11.9 g/dL (14.0-18.0); LYMPHOCYTES # (AUTO) 0.3 (1.0-3.2); LYMPHOCYTES % 4.5 % (18.0-39.1); MEAN CORPUSCULAR HEMOGLOBIN 30.7 pg (28-32); MEAN CORPUSCULAR HGB CONC 33.9 g/dL (31-35); MEAN CORPUSCULAR VOLUME 90.7 fL (81-99); MONOCYTES # (AUTO) 0.4 (0.2-0.8); MONOCYTES % 5.8 % (4.4-11.3); NEUTROPHILS # (AUTO) 5.6 (2.1-6.9); PLATELET COUNT 139 x10e3/uL (140-360); RED BLOOD COUNT 3.87 x10e6/uL (4.3-5.7); RED CELL DISTRIBUTION WIDTH 14.7 % (11.7-14.4)
[2018-02-06 07:22] LABS: ANION GAP 17.4 mmol/L (8-16); CALCIUM 8.1 mg/dL (8.4-10.2); CREATININE, SERUM 3.69 mg/dL (0.72-1.25); MAGNESIUM 1.9 MG/DL (1.3-2.1); POTASSIUM 4.4 mmol/L (3.5-5.1)
[2018-02-06] MEDS: SEVELAMER CARBONATE 800 MG TAB PO SCH ×3 (08:00→16:33)
[2018-02-06] MEDS: CLONIDINE HCL 0.2 MG TAB PO SCH (08:46)
[2018-02-06] MEDS: METHYLPREDNISOLONE SOD SUCC 40 MG/ML VIAL IV SCH ×2 (08:46→21:05)
[2018-02-06] MEDS: METOCLOPRAMIDE HCL 10 MG/2ML VIAL IV SCH ×4 (08:46→21:05)
[2018-02-06] MEDS: FAMOTIDINE 20 MG TAB PO SCH ×2 (08:46→16:33)
[2018-02-06] MEDS: DONEPEZIL HCL 5 MG TAB PO SCH (08:46)
[2018-02-06] MEDS: LISINOPRIL 20 MG TAB PO SCH (08:47)
[2018-02-06] MEDS: CLOPIDOGREL BISULFATE 75 MG TAB PO SCH (08:47)
[2018-02-06] MEDS: FUROSEMIDE 20 MG TAB PO SCH ×2 (08:47→16:33)
[2018-02-06] MEDS: AMIODARONE HCL 200 MG TAB PO SCH (08:47)
[2018-02-06] MEDS: LABETALOL HCL 100 MG TAB PO SCH ×2 (08:47→16:33)
[2018-02-06] MEDS ORDERED: CLONIDINE HCL 0.3 MG TAB PO SCH (14:00)
--- NOTE | 2018-02-06 14:09 | Diagnostic Imaging Report ---
PROCEDURE: A single AP view of the chest. COMPARISON: 02/04/2018. INDICATIONS: FLUID OVERLOAD FINDINGS: Lines/tubes: Right chest wall pacemaker with leads in the expected positions. Metallic stent in the left subclavian region, unchanged. Lungs: Perihilar interstitial and airspace opacities, improved since the prior examination. Pleura: Small, bilateral pleural effusions, improved since the prior examination. Heart and mediastinum: Mild cardiomegaly, unchanged. Bones: No acute bony abnormality. IMPRESSION: Pulmonary edema and small effusions, overall improved since the prior examination. Dictated by: Nick Singh M.D. on 02/06/2018 at 14:11 Electronically approved by: Nick Singh M.D. on 02/06/2018 at 14:11
--- NOTE | 2018-02-06 16:19 | Diagnostic Imaging Report ---
History: Altered mental status Comparison studies: Head CT on 12/07/2015 10-1 18 Technique: Axial images were obtained from the skull base to the vertex. Coronal and sagittal reconstructions obtained from the axial data. Findings: Scalp/skull: No abnormalities. No fractures, blastic or lytic lesions. Extra-axial spaces: No masses. No fluid collections. Brain sulci: Mild generalized brain volume loss, with mild bilateral medial temporal predominance, which can be seen in patients with Alzheimer's disease, on the in the appropriate clinical setting. . Ventricles: Normal in size and configuration. No hydrocephalus. Parenchyma: Moderate microvascular ischemic changes. No masses, hemorrhage, acute or chronic cortical vascular insults. Sellar/suprasellar region: No abnormalities Craniocervical junction: Patent foramen magnum. No Chiari one malformation. IMPRESSION: 1. No acute abnormalities. 2. Moderate chronic microvascular ischemic changes, unchanged from head CT on 11/13/2017. 3. Persistent brain volume as detailed above. Signed by: Dr. Josie Borrego M.D. on 02/06/2018 4:15 PM
[2018-02-06 19:45] LABS: ABG PCO2 42 mmHg (41-51); ABG PH 7.45 (7.31-7.41); ABG PO2 140 mmHg (80-105)
[2018-02-06 19:46] LABS: ABG HCO3 29 mmol/L (23-28)
[2018-02-06] MEDS ORDERED: ENALAPRILAT IV INJ 1.25 MG/ML VIAL IV ONE (20:15)
[2018-02-06] MEDS: CINACALCET 30 MG TAB PO SCH (21:00)
[2018-02-06] MEDS ORDERED: NIFEDIPINE CR 30 MG TAB PO ONE (21:00)
[2018-02-06] MEDS ORDERED: LOSARTAN POTASSIUM 25 MG TAB PO SCH (21:00)
[2018-02-07] VITALS (7 sets, daily range): BP systolic 116–206; BP diastolic 68–80
[2018-02-07] MEDS: HYDRALAZINE HCL 20 MG/ML VIAL IV PRN ×2 (01:14→20:57)
[2018-02-07] MEDS: LEVOTHYROXINE SODIUM 75 MCG TAB PO SCH (06:34)
[2018-02-07 07:02] LABS: HEMOGLOBIN 12.5 g/dL (14.0-18.0); LYMPHOCYTES # (AUTO) 0.3 (1.0-3.2); LYMPHOCYTES % 4.6 % (18.0-39.1); MEAN CORPUSCULAR HEMOGLOBIN 30.6 pg (28-32); MEAN CORPUSCULAR HGB CONC 33.8 g/dL (31-35); MEAN CORPUSCULAR VOLUME 90.7 fL (81-99); MONOCYTES # (AUTO) 0.2 (0.2-0.8); MONOCYTES % 3.9 % (4.4-11.3); NEUTROPHILS # (AUTO) 5.2 (2.1-6.9); NEUTROPHILS % 90.8 % (38.7-80.0); PLATELET COUNT 138 x10e3/uL (140-360); RED BLOOD COUNT 4.08 x10e6/uL (4.3-5.7); RED CELL DISTRIBUTION WIDTH 14.5 % (11.7-14.4)
[2018-02-07 07:28] LABS: ANION GAP 19.7 mmol/L (8-16); CREATININE, SERUM 5.37 mg/dL (0.72-1.25); MAGNESIUM 1.9 MG/DL (1.3-2.1); POTASSIUM 4.7 mmol/L (3.5-5.1)
[2018-02-07] MEDS: FAMOTIDINE 20 MG TAB PO SCH ×2 (07:30→17:37)
[2018-02-07] MEDS: SEVELAMER CARBONATE 800 MG TAB PO SCH ×3 (08:00→17:37)
[2018-02-07] MEDS: LABETALOL HCL 100 MG TAB PO SCH ×2 (09:00→17:38)
[2018-02-07] MEDS: CLOPIDOGREL BISULFATE 75 MG TAB PO SCH (09:00)
[2018-02-07] MEDS: FUROSEMIDE 20 MG TAB PO SCH ×2 (09:00→17:37)
[2018-02-07] MEDS: MEGACE 400MG/ 10ML CUP PO SCH (09:00)
[2018-02-07] MEDS: AMIODARONE HCL 200 MG TAB PO SCH (09:00)
[2018-02-07] MEDS: METHYLPREDNISOLONE SOD SUCC 40 MG/ML VIAL IV SCH ×2 (09:00→20:54)
[2018-02-07 11:45] LABS: LYMPHOCYTES % (MANUAL) 7 % (19-48); MONOCYTES % (MANUAL) 4 % (3.4-9.0); NEUTROPHILS % (MANUAL) 89 % (40-74)
[2018-02-07 11:46] LABS: PLATELET ESTIMATE SLIGHTLY DECREASED; PLATELET MORPHOLOGY COMMENT NORMAL; RBC MORPHOLOGY COMMENT NORMAL
[2018-02-07] MEDS: HYDRALAZINE HCL 100 MG TABLET PO SCH (14:00)
[2018-02-07] MEDS ORDERED: FUROSEMIDE INJ 10 MG/ML 4 ML VIAL IV ONE (16:00)
[2018-02-07] MEDS ORDERED: HYDRALAZINE HCL 100 MG TABLET PO SCH (17:00)
[2018-02-07] MEDS: CINACALCET 30 MG TAB PO SCH (20:54)
[2018-02-07] MEDS: LOSARTAN POTASSIUM 100 MG TAB PO SCH (20:57)
[2018-02-07] MEDS: ONDANSETRON HCL 4 MG ORAL DISINTEGRATING TAB PO PRN (20:58)
[2018-02-08] VITALS (8 sets, daily range): BP systolic 143–211; BP diastolic 65–82
[2018-02-08] MEDS: HYDRALAZINE HCL 100 MG TABLET PO SCH ×4 (00:23→22:06)
[2018-02-08] MEDS: LEVOTHYROXINE SODIUM 75 MCG TAB PO SCH (05:52)
[2018-02-08 07:48] LABS: BASOPHILS % 0.2 % (0.0-1.0); HEMATOCRIT 41.8 % (38.2-49.6); HEMOGLOBIN 13.8 g/dL (14.0-18.0); LYMPHOCYTES # (AUTO) 0.2 (1.0-3.2); LYMPHOCYTES % 3.1 % (18.0-39.1); MEAN CORPUSCULAR HEMOGLOBIN 30.3 pg (28-32); MEAN CORPUSCULAR VOLUME 91.9 fL (81-99); MONOCYTES # (AUTO) 0.3 (0.2-0.8); MONOCYTES % 4.6 % (4.4-11.3); NEUTROPHILS # (AUTO) 5.6 (2.1-6.9); NEUTROPHILS % 91.1 % (38.7-80.0); PLATELET COUNT 137 x10e3/uL (140-360); RED BLOOD COUNT 4.55 x10e6/uL (4.3-5.7); RED CELL DISTRIBUTION WIDTH 14.5 % (11.7-14.4)
[2018-02-08 08:32] LABS: ANION GAP 17.3 mmol/L (8-16); CALCIUM 8.3 mg/dL (8.4-10.2); CREATININE, SERUM 3.84 mg/dL (0.72-1.25); POTASSIUM 4.3 mmol/L (3.5-5.1)
[2018-02-08] MEDS: SEVELAMER CARBONATE 800 MG TAB PO SCH ×3 (08:42→17:31)
[2018-02-08] MEDS: FUROSEMIDE 20 MG TAB PO SCH ×2 (08:42→17:30)
[2018-02-08] MEDS: AMIODARONE HCL 200 MG TAB PO SCH (08:42)
[2018-02-08] MEDS: METHYLPREDNISOLONE SOD SUCC 40 MG/ML VIAL IV SCH ×2 (08:42→22:06)
[2018-02-08] MEDS: CLOPIDOGREL BISULFATE 75 MG TAB PO SCH (08:42)
[2018-02-08] MEDS: MEGACE 400MG/ 10ML CUP PO SCH (08:42)
[2018-02-08] MEDS: LABETALOL HCL 100 MG TAB PO SCH ×2 (08:42→17:32)
[2018-02-08] MEDS: FAMOTIDINE 20 MG TAB PO SCH ×2 (08:42→17:30)
[2018-02-08] MEDS ORDERED: AMLODIPINE BESYLATE 5 MG TAB PO SCH (10:00)
[2018-02-08] MEDS ORDERED: NIFEDIPINE CR 30 MG TAB PO SCH ×4 (10:15→17:00)
[2018-02-08] MEDS ORDERED: FUROSEMIDE INJ 10 MG/ML 4 ML VIAL IV ONE (11:00)
--- NOTE | 2018-02-08 11:03 | Diagnostic Imaging Report ---
EXAMINATION: Chest, CHEST SINGLE (PORTABLE) INDICATION: Chest pain COMPARISON: Portable chest 02/04/2018 FINDINGS: LINES: Right chest cardiac device with leads projecting over the expected regions of the right atrium and ventricle. Heart: Normal cardiac silhouette. Vascular: The pulmonary vasculature is within normal limits. Atherosclerotic calcifications of the aortic arch. Vascular stent in the expected region of the left brachiocephalic vein. Mediastinum: No mediastinal, hilar, or axillary mass or lymphadenopathy. Lungs: No parenchymal mass. No focal consolidation. Pleura: No pleural effusion. No pneumothorax. Bones: No acute osseous abnormality. Degenerative changes of the thoracic spine. Soft tissues: Normal. Impression: No acute radiographic abnormality. Signed by: Dr. Matthew Rush M.D. on 02/08/2018 10:59 AM
[2018-02-08] MEDS: NIFEDIPINE CR 30 MG TAB PO SCH ×3 (11:10→21:00)
[2018-02-08 11:54] LABS: LYMPHOCYTES % (MANUAL) 6 % (19-48); MONOCYTES % (MANUAL) 2 % (3.4-9.0); NEUTROPHILS % (MANUAL) 92 % (40-74); PLATELET ESTIMATE ADEQUATE; PLATELET MORPHOLOGY COMMENT NORMAL; RBC MORPHOLOGY COMMENT NORMAL
[2018-02-08] MEDS: CINACALCET 30 MG TAB PO SCH (22:06)
[2018-02-09] VITALS: BP 124/67
[2018-02-09 04:00] VITALS: BP 129/60
[2018-02-09] MEDS: LEVOTHYROXINE SODIUM 75 MCG TAB PO SCH (05:42)
[2018-02-09] MEDS: HYDRALAZINE HCL 100 MG TABLET PO SCH (05:42)
[2018-02-09 06:27] LABS: BASOPHILS % 0.1 % (0.0-1.0); HEMATOCRIT 39.7 % (38.2-49.6); HEMOGLOBIN 13.2 g/dL (14.0-18.0); LYMPHOCYTES # (AUTO) 0.3 (1.0-3.2); LYMPHOCYTES % 3.3 % (18.0-39.1); MEAN CORPUSCULAR HEMOGLOBIN 30.3 pg (28-32); MEAN CORPUSCULAR HGB CONC 33.2 g/dL (31-35); MEAN CORPUSCULAR VOLUME 91.3 fL (81-99); MONOCYTES # (AUTO) 0.2 (0.2-0.8); MONOCYTES % 2.8 % (4.4-11.3); NEUTROPHILS # (AUTO) 7.1 (2.1-6.9); NEUTROPHILS % 93.3 % (38.7-80.0); PLATELET COUNT 143 x10e3/uL (140-360); RED BLOOD COUNT 4.35 x10e6/uL (4.3-5.7); RED CELL DISTRIBUTION WIDTH 14.3 % (11.7-14.4)
[2018-02-09 06:49] LABS: ANION GAP 20.6 mmol/L (8-16); CALCIUM 7.8 mg/dL (8.4-10.2); CREATININE, SERUM 5.8 mg/dL (0.72-1.25); MAGNESIUM 2.2 MG/DL (1.3-2.1); POTASSIUM 4.6 mmol/L (3.5-5.1)
[2018-02-09] MEDS: FAMOTIDINE 20 MG TAB PO SCH (07:30)
[2018-02-09 08:00] VITALS: BP 120/58
[2018-02-09] MEDS: SEVELAMER CARBONATE 800 MG TAB PO SCH ×2 (08:00→12:00)
[2018-02-09] MEDS: LABETALOL HCL 100 MG TAB PO SCH (09:00)
[2018-02-09] MEDS: CLOPIDOGREL BISULFATE 75 MG TAB PO SCH (09:00)
[2018-02-09] MEDS: AMIODARONE HCL 200 MG TAB PO SCH (09:00)
[2018-02-09] MEDS: LOSARTAN POTASSIUM 100 MG TAB PO SCH (09:00)
[2018-02-09] MEDS: MEGACE 400MG/ 10ML CUP PO SCH (09:00)
[2018-02-09] MEDS: FUROSEMIDE 20 MG TAB PO SCH (09:00)
[2018-02-09] MEDS: METHYLPREDNISOLONE SOD SUCC 40 MG/ML VIAL IV SCH (09:00)
[2018-02-09] MEDS: NIFEDIPINE CR 30 MG TAB PO SCH (09:00)
[2018-02-09 12:33] VITALS: BP 99/48
[2018-02-09] MEDS ORDERED: TYLENOL # 31 EA PO (14:06)
[2018-02-09] MEDS ORDERED: Megestrol Acetate PO (14:06)
[2018-02-09] MEDS ORDERED: AMIODARONE HCL200 MG PO (14:06)
[2018-02-09] MEDS ORDERED: PREDNISONE10 MG PO (14:06)
[2018-02-09] MEDS ORDERED: NIFEDIPINE ER30 M1 PO (14:06)
[2018-02-09] MEDS ORDERED: COZAAR100 MG PO (14:06)
[2018-02-09] MEDS ORDERED: HYDRALAZINE HC100 MG PO (14:06)
--- NOTE | 2018-02-10 00:30 | Discharge Summary ---
ADMISSION DIAGNOSES 1. Fluid overload with end-stage renal and congestive heart failure 2. Hypertensive urgency. 3. Coronary artery disease with stents. 4. Type 2 diabetes. 5. Hypothyroidism. 6. Chest pain. DISCHARGE DIAGNOSES 1. Fluid overload with end-stage renal and congestive heart failure 2. Hypertensive urgency. 3. Coronary artery disease with stents. 4. Type 2 diabetes. 5. Hypothyroidism. 6. Chest pain. 7. Hypermagnesemia. 8. Hypocalcemia. HISTORY: Patient has a history of hypertension, type 2 diabetes, CAD with stent placement in 2008, chronic diastolic heart failure, PAD, end-stage renal with dialysis, CVA with right-sided weakness, pacer, hypothyroidism, insomnia, GERD, dementia, anxiety, and Parkinson's. HOSPITAL COURSE: A 67-year-old male presents with shortness of breath, dry cough, and chest pain that began last night. He denies fever, sputum production, and calf pain. He admits to frequent sweating. He has dialysis on Friday, , and Friday and his last dialysis was Friday; so, he did not miss any days. On admission, the patient was placed on dialysis per renal. IV Lasix bolus was given as well as p.o. meds continued. Nebs were also started for shortness of breath. Cardiology was consulted as he is a patient of Dr. Egan. They requested that he follow in hospital as well. Patient complained of chest pain, but the troponins were negative times 3. On admission, the patient had chest x-ray which showed pulmonary edema and bilateral pleural effusions. His BNP on admission was 1741. During the hospital stay, it got as high as 3817. At time of discharge, the BNP was 1030. Fluids were also restricted and blood pressure medications changed daily to try to bring down the blood pressure. He often remained in the low 200s despite all the medications given p.o. and required IV p.r.n. medications as well. Patient complained of abdominal pain and poor appetite. Ultrasound of the abdomen showed no acute abnormality. Per his , he started to act differently. He appeared altered mentally; so, a CT of the brain was done which showed no acute abnormalities. Later on that night, a rapid response was called on him because he was very hard to awaken, very stuporous; everything came back normal including sodium, potassium, ABGs, ammonia level, sugar. Per the family, this has happened before when the patient was placed on Aricept; so, the medication was discontinued as well as Reglan. The patient was much better the next day and continued to thrive until he went home. He was given a speech therapy evaluation because the family was concerned with his swallowing. Per speech therapy, he has no issues and he passed with flying colors; so, he will continue his normal diet. He will be sent home with home health for physical therapy as his did not want him to go to a SNF. He was sent home with 1. Hydralazine 100 q.8 h. 2. Losartan 100 daily. 3. Nifedipine 30 b.i.d. 4. Megace. 5. Tapered dose of prednisone. Patient says his appetite is better and his breathing is much better as well. He is excited to go home. He and his family will follow up with a blood pressure log; primary care to determine whether to stay on these medications or not. At time of discharge, his blood pressure was 99/48. Vital signs stable. Patient afebrile. Dictated by Yocasta Prakash NP ALONZO PIÑA MD Job#: [id number]
== END 2018-02-09 15:48 | disposition home health service (06) | DRG 291 ==
LOC: ER 23:36 → ERHOLD 02-03 06:22 → MED/SURG2 02-03 13:34 → OBSVTOIN 02-03 15:44
PROVIDERS: ADMIT Internal Medicine; ATTEND Internal Medicine
DX: I13.2 Hypertensive heart and chronic kidney disease with heart failure and with stage 5 chronic kidney disease, or end stage renal disease (principal); N18.6 End stage renal disease; I50.33 Acute on chronic diastolic (congestive) heart failure; G93.40 Encephalopathy, unspecified; I69.351 Hemiplegia and hemiparesis following cerebral infarction affecting right dominant side; E87.1 Hypo-osmolality and hyponatremia; Z99.2 Dependence on renal dialysis; I16.0 Hypertensive urgency; E11.22 Type 2 diabetes mellitus with diabetic chronic kidney disease; E83.41 Hypermagnesemia; E03.9 Hypothyroidism, unspecified; E83.51 Hypocalcemia; I25.10 Atherosclerotic heart disease of native coronary artery without angina pectoris; Z95.5 Presence of coronary angioplasty implant and graft; F03.90 Unspecified dementia, unspecified severity, without behavioral disturbance, psychotic disturbance, mood disturbance, and anxiety; G20 Parkinson's disease; I25.2 Old myocardial infarction; Z95.0 Presence of cardiac pacemaker; E11.40 Type 2 diabetes mellitus with diabetic neuropathy, unspecified; E11.51 Type 2 diabetes mellitus with diabetic peripheral angiopathy without gangrene; E87.5 Hyperkalemia; G47.00 Insomnia, unspecified
CPT/HCPCS: 36415; 36600; 70450; 71045; 76700; 80048; 80053; 80061; 82140; 82550; 82553; 82805; 82948; 83036; 83605; 83735; 83880; 84439; 84443; 84484; 85025; 85610; 85730; 87040; 93005; 96374; 96375; 96376; 97139; 99284; J0360; J1940; J2765; J2920; J7030

== ENCOUNTER → 2018-03-02 | Outpatient (CLI) | payer MEDICARE ==
[~2018-03-02] MED LIST changes: +COZAAR100 MG PO; +HYDRALAZINE HC100 MG PO; +NIFEDIPINE ER30 M1 PO; +PREDNISONE10 MG PO; +TYLENOL # 31 EA PO
--- NOTE | 2018-03-03 09:13 | Diagnostic Imaging Report ---
History: Low back pain Comparison studies: None Technique: Axial images were obtained from T11 through the sacrum. Coronal and sagittal images reconstructed from the axial data. Intravenous contrast: None Findings: Number of non-rib bearing vertebral bodies: 5 Alignment: Straightening of the normal lordosis. No scoliosis. Soft tissues: No paraspinal abnormalities. Atherosclerotic calcifications of the abdominal aorta and branches. Surgical clips partially visualized left lower quadrant. Paraspinal muscles: Unremarkable. Vertebrae: No fractures, infection or neoplasm. Degenerative changes: L1-L2: Patent canal and foramina L2-L3: Mild diffuse disc bulge and mild facet hypertrophy with patent canal and foramina L3-L4: Mild diffuse disc bulge, mild facet hypertrophy and ligamentum flavum thickening with patent canal and foramina L4-L5: Diffuse disc bulge, mild facet hypertrophy and ligamentum flavum thickening results in moderate to severe canal stenosis, narrowing of the bilateral subarticular recesses and moderate bilateral foraminal narrowing L5-S1: Diffuse disc bulge, mild right and moderate left facet hypertrophy results in mild canal stenosis and mild bilateral foraminal narrowing Sacroiliac joints: Degenerative changes at the right sacroiliac joint with anteriorly projecting osteophyte and mild sclerosis IMPRESSION: 1. Moderate to severe canal stenosis, narrowing bilateral subarticular recesses and moderate bilateral foraminal narrowing at L4-L5 secondary to diffuse disc bulge and posterior element hypertrophy. 2. Mild bilateral foraminal narrowing at L5-S1. Other mild degenerative changes as described above Signed by: DR Domingo Burnett M.D. on 03/03/2018 9:09 AM
== END ==
LOC: CT 11:44
PROVIDERS: ATTEND Specialist
DX: M54.5 Low back pain (principal)
CPT/HCPCS: 72131